=== PATIENT | female | born 1930 | race Caucasian/White ===

== ENCOUNTER 2016-10-18 07:41 | Emergency (ER) | payer MEDICARE ==
[~2016-10-18] VITALS: Ht 177.8 cm; Wt 80.0 kg
[~2016-10-18 07:41] MED LIST: ALPR-138 PO; AMLO5TAB96 PO; ASPI81 PO; COUM5TAB PO; LASI20TA PO; LEVO.075 PO; NORV2.5T11 PO; OMEP20CA5 PO; PARO10TA PO; PAXI20TA26 PO; PERC7.5T13 PO; PIRB14I INH; POTA0.15 PO; PROP20S PO; PROP80TA PO; WARF2.5 PO; ZITH500T PO
[2016-10-18 07:48] VITALS: BP 132/69; PULSE 66; RESP 16; TEMP 97.2; O2SAT 98
[2016-10-18] MEDS ORDERED: OXYMETAZOLINE HCL 0.05% 15 ML NASAL SPRAY NASAL ONE (08:00)
[2016-10-18 08:03] LABS: BASOPHIL % 0.4 % (0.0-2.0); EOSINOPHIL % 0.5 % (0.0-4.0); HEMATOCRIT 39.2 % (35.0-46.0); HEMO FLAGS DIFF FINAL; LYMPHOCYTE # 2.7 TH/MM3 (1.0-4.8); MEAN CORPUSCULAR HEMOGLOBIN 33.3 PG (27.0-34.0); MEAN CORPUSCULAR HGB CONC 33.7 % (32.0-36.0); MONO % 9.2 % (0.0-8.0); NEUT % 53.9 % (16.0-70.0); PLATELET COUNT 148 TH/MM3 (150-450); RED BLOOD COUNT 3.96 MIL/MM3 (4.00-5.30); RED CELL DISTRIBUTION WIDTH 13.5 % (11.6-17.2); WHITE BLOOD COUNT 7.5 TH/MM3 (4.0-11.0)
[2016-10-18 08:47] LABS: APTT (PATIENT) 32.2 SEC (24.3-30.1); INTERNATIONAL NORMALIZED RATIO 1.2 RATIO; PROTHROMBIN TIME - PATIENT 13.3 SEC (9.8-11.6)
--- NOTE | 2016-10-18 09:20 | PD ---
HPI Chief Complaint: Nosebleed Time Seen by Provider: 07:48 Travel History International Travel<30 days: No Contact w/Intl Traveler<30days: No Traveled to known affect area: No History of Present Illness HPI Patient is an 86-year-old female who comes in from the [facility] due to a nosebleed. Per EMS she had a nosebleed earlier in the night, but it was controlled with pressure at the [facility]. Started bleeding again this morning they were unable to control the bleeding so they sent her to the emergency department. She is on Xarelto. She has no complaints at this time. She denies any trauma to her nose. She is not having any palpitations or shortness of breath. She denies any chest pain. PFSH Past Medical History Arthritis: Yes Asthma: Yes Atrial Fibrillation: Yes Anxiety: Yes Heart Rhythm Problems: Yes Cancer: No Cardiac Catheterization: Yes Cardiovascular Problems: Yes (HEART BY-PASS; PACEMAKER) High Cholesterol: Yes Congestive Heart Failure: No Cerebrovascular Accident: Yes Coronary Artery Disease: Yes Diabetes: No Diminished Hearing: No GERD: Yes Glaucoma: No Hepatitis: No Hiatal Hernia: Yes Hypertension: Yes Musculoskeletal: Yes (SPINAL STENOSIS) Neurologic: Yes (TREMORS FOR APPROX 30 YEARS) Psychiatric: No Respiratory: No Immunizations Current: Yes Myocardial Infarction: No Thyroid Disease: Yes Tetanus Vaccination: Unknown ?: Not Menopausal: Yes Past Surgical History Abdominal Surgery: Yes Cardiac Surgery: Yes (PACEMAKER) Section: Yes Coronary Artery Bypass Graft: Yes (1994 BYPASS DOUBLE) Coronary Stent: Yes (2002) Eye Surgery: Yes (BILAT CATARACTS) Gynecologic Surgery: Yes (; HYSTERECTOMY) Hysterectomy: Yes Joint Replacement: Yes (R KNEE 2004) Pacemaker: Yes (05/24/2008) Tonsillectomy: Yes Other Surgery: Yes Social History Alcohol Use: No Tobacco Use: No Substance Use: No Allergies-Medications (Allergen,Severity, Reaction): Coded Allergies: Epinephrine (Verified Allergy, Severe, HEART RACES, 06/06/10) Sulfa (Verified Allergy, Severe, ANGIO EDEMA, 06/06/10) Monosodium Glutamate (Verified Allergy, Mild, INCREASE HEART RATE, ) Reported Meds & Prescriptions Reported Meds & Active Scripts Active Ceftin (Cefuroxime Axetil) 500 Mg Tab 500 Mg PO BID Xanax (Alprazolam) 0.25 Mg Tab 0.25 Mg PO Q8HR PRN Lortab (Hydrocodone-Acetaminophen) 10-325 Mg Tab 1 Tab PO Q6H PRN Reported Simvastatin 10 Mg Tab 10 Mg PO DAILY Xarelto (Rivaroxaban) 20 Mg Tab 20 Mg PO DAILY Ditropan (Oxybutynin Chloride) 5 Mg Tab 10 Mg PO HS Amlodipine (Amlodipine Besylate) 5 Mg Tab 5 Mg PO DAILY Atenolol 25 Mg Tab 12.5 Mg PO DAILY Omeprazole 40 Mg Cap 40 Mg PO DAILY Levothyroxine (Levothyroxine Sodium) 75 Mcg Tab 75 Mcg PO DAILY Risperdal (Risperidone) 1 Mg Tab 1 Mg PO DAILY Tylenol (Acetaminophen) 325 Mg Cap 650 Mg PO Q6H PRN Remeron (Mirtazapine) 15 Mg Tab 7.5 Mg PO HS Maxair (Pirbuterol) 25.6 Gm Aero 2 Puff INH Q4HPRN FOR ASTHMA SYMPTOMS Potassium Chloride 0.15% (Potassium Chloride in NaCl) 20 Meq/15 Ml Liqd 10 Meq PO BID Paxil (Paroxetine HCl) 10 Mg Tab 20 Mg PO DAILY Aspirin 81 Mg Tab 81 Mg PO DAILY Lasix (Furosemide) 20 Mg Tab 20 Mg PO DAILY Review of Systems General / Constitutional: No: Fever, Chills Eyes: No: Blurred Vision HENT: Positive: Nosebleed, No: Headaches Cardiovascular: No: Chest Pain or Discomfort, Palpitations Respiratory: No: Shortness of Breath Gastrointestinal: No: Nausea, Vomiting Skin: No Change in Pigmentation Neurologic: No: Weakness, Dizziness Physical Exam Narrative GENERAL: Awake and alert, in no acute distress. SKIN: Focused skin assessment warm/dry. HEAD: Atraumatic. Normocephalic. EYES: Pupils equal and round. No scleral icterus. ENT: Mucous membranes pink and moist. Active bleeding from the right Nare, no septal hematoma. NECK: Trachea midline. No JVD. CARDIOVASCULAR: Regular rate and rhythm. No murmur appreciated. RESPIRATORY: No accessory muscle use. Clear to auscultation. Breath sounds equal bilaterally. NEUROLOGICAL: Awake and alert. No obvious cranial nerve deficits. Motor grossly within normal limits. Normal speech. PSYCHIATRIC: Appropriate mood and affect; insight and judgment normal. Data Data Last Documented VS Vital Signs Date Time Temp Pulse Resp B/P Pulse Ox O2 Delivery O2 Flow Rate FiO2 10/18/16 10:33 75 16 128/75 99 10/18/16 07:48 97.2 Orders Complete Blood Count With Diff (10/18/16 07:48) Act Partial Throm Time (Ptt) (10/18/16 07:48) Prothrombin Time / Inr (Pt) (10/18/16 07:48) Oxymetazoline 0.05% [place] (Afrin 0.0 (10/18/16 08:00) Labs Laboratory Tests Test 10/18/16 07:50 White Blood Count 7.5 TH/MM3 Red Blood Count 3.96 MIL/MM3 Hemoglobin 13.2 GM/DL Hematocrit 39.2 % Mean Corpuscular Volume 99.0 FL Mean Corpuscular Hemoglobin 33.3 PG Mean Corpuscular Hemoglobin 33.7 % Concent Red Cell Distribution Width 13.5 % Platelet Count 148 TH/MM3 Mean Platelet Volume 8.3 FL Neutrophils (%) (Auto) 53.9 % Lymphocytes (%) (Auto) 36.0 % Monocytes (%) (Auto) 9.2 % Eosinophils (%) (Auto) 0.5 % Basophils (%) (Auto) 0.4 % Neutrophils # (Auto) 4.0 TH/MM3 Lymphocytes # (Auto) 2.7 TH/MM3 Monocytes # (Auto) 0.7 TH/MM3 Eosinophils # (Auto) 0.0 TH/MM3 Basophils # (Auto) 0.0 TH/MM3 CBC Comment DIFF FINAL Differential Comment Prothrombin Time 13.3 SEC Prothromb Time International 1.2 RATIO Ratio Activated Partial 32.2 SEC Thromboplast Time MDM Medical Decision Making Medical Screen Exam Complete: Yes Emergency Medical Condition: Yes Medical Record Reviewed: Yes Differential Diagnosis Nosebleed versus coagulopathy versus anemia Narrative Course Patient is an 86-year-old female comes in with a nosebleed. There is active bleeding from the right side of the nose. No evidence of septal hematoma. Labs sent to check hemoglobin show a hemoglobin of 13. PT and PTT are slightly elevated. Bleeding stopped with direct pressure and Afrin. Patient observed in the ED to ensure no further bleeding. Diagnosis Primary Impression: Nosebleed Patient Instructions: General Instructions, Nosebleed (ED) Additional Instructions: Avoid picking or blowing your nose. If your nose bleeds again, apply direct pressure. Follow up with your doctor and ENT. Return to the ED as needed for any worsening symptoms. Disposition: 03 DISCHARGE TO SNF Condition: Stable Annalisa Matthews MD October 18, 2016 09:20
[2016-10-18 10:33] VITALS: BP 128/75
[2016-10-18] MEDS ORDERED: FURO1TAB60 PO (18:47)
[2016-10-18] MEDS ORDERED: OXYB5TAB10 PO (18:47)
[2016-10-18] MEDS ORDERED: POTA-163 PO (18:47)
[2016-10-18] MEDS ORDERED: LEVA500T PO (18:47)
[2016-10-18] MEDS ORDERED: SIMV10TA PO (18:47)
[2016-10-18] MEDS ORDERED: RISP1 PO (18:47)
[2016-10-18] MEDS ORDERED: ACET1CAP18 PO (18:47)
[2016-10-18] MEDS ORDERED: ATEN25TA PO (18:47)
[2016-10-18] MEDS ORDERED: LORA-392 PO (18:47)
[2016-10-18] MEDS ORDERED: AMLO5TAB2 PO (18:47)
[2016-10-18] MEDS ORDERED: HYDR-3535 PO (18:47)
[2016-10-18] MEDS ORDERED: OMEP40CA2 PO (18:47)
[2016-10-18] MEDS ORDERED: XARE20TA PO (18:47)
[2016-10-18] MEDS ORDERED: LEVO75TA3 PO (18:47)
[2016-10-18] MEDS ORDERED: REME15TA PO (18:47)
== END 2016-10-18 13:18 ==
LOC: NEPC 07:41
DX: R04.0 Epistaxis (principal); I48.91 Unspecified atrial fibrillation; Z95.0 Presence of cardiac pacemaker; I25.10 Atherosclerotic heart disease of native coronary artery without angina pectoris; I10 Essential (primary) hypertension
CPT/HCPCS: 85025; 85610; 85730; 99283

== ENCOUNTER 2016-10-18 17:34 | Observation (INO) | payer MEDICARE ==
[~2016-10-18] VITALS: Ht 177.8 cm; Wt 80.0 kg
[2016-10-18 17:48] VITALS: BP 130/64; PULSE 62; RESP 16; TEMP 98; O2SAT 95
[2016-10-18] MEDS ORDERED: POTA-163 PO (18:47)
[2016-10-18] MEDS ORDERED: LEVA500T PO (18:47)
[2016-10-18] MEDS ORDERED: LEVO75TA3 PO (18:47)
[2016-10-18] MEDS ORDERED: HYDR-3535 PO (18:47)
[2016-10-18] MEDS ORDERED: ATEN25TA PO (18:47)
[2016-10-18] MEDS ORDERED: FURO1TAB60 PO (18:47)
[2016-10-18] MEDS ORDERED: RISP1 PO (18:47)
[2016-10-18] MEDS ORDERED: ACET1CAP18 PO (18:47)
[2016-10-18] MEDS ORDERED: OMEP40CA2 PO (18:47)
[2016-10-18] MEDS ORDERED: REME15TA PO (18:47)
[2016-10-18] MEDS ORDERED: SIMV10TA PO (18:47)
[2016-10-18] MEDS ORDERED: LORA-392 PO (18:47)
[2016-10-18] MEDS ORDERED: AMLO5TAB2 PO (18:47)
[2016-10-18] MEDS ORDERED: OXYB5TAB10 PO (18:47)
[2016-10-18] MEDS ORDERED: XARE20TA PO (18:47)
[2016-10-18 19:05] VITALS: BP 132/74; PULSE 77; RESP 18; TEMP 97.4; O2SAT 98
--- NOTE | 2016-10-18 19:34 | PD ---
HPI Chief Complaint: Nosebleed Time Seen by Provider: 17:58 Travel History International Travel<30 days: No Contact w/Intl Traveler<30days: No Traveled to known affect area: No History of Present Illness HPI Patient is an 86-year-old female with history of dementia who comes in for the second time due to nosebleed. She was here earlier this morning with a nosebleed which stopped after direct pressure. However she continues to pick at her nose and then the bleeding starts again. Per residential, she has stopped her Xarelto. They sent her back because they believe her nose needs to be cauterized. She has no complaints at this time. There is minimal bleeding currently. PFSH Past Medical History Arthritis: Yes Asthma: Yes Atrial Fibrillation: Yes Anxiety: Yes Heart Rhythm Problems: Yes Cancer: No Cardiac Catheterization: Yes Cardiovascular Problems: Yes (HEART BY-PASS; PACEMAKER) High Cholesterol: Yes Congestive Heart Failure: No Cerebrovascular Accident: Yes Coronary Artery Disease: Yes Diabetes: No Diminished Hearing: No GERD: Yes Glaucoma: No Hepatitis: No Hiatal Hernia: Yes Hypertension: Yes Musculoskeletal: Yes (SPINAL STENOSIS) Neurologic: Yes (TREMORS FOR APPROX 30 YEARS) Psychiatric: No Respiratory: No Immunizations Current: Yes Myocardial Infarction: No Thyroid Disease: Yes ?: Not Menopausal: Yes Past Surgical History Abdominal Surgery: Yes Cardiac Surgery: Yes (PACEMAKER) Section: Yes Coronary Artery Bypass Graft: Yes (1994 BYPASS ) Coronary Stent: Yes (2002) Eye Surgery: Yes (BILAT CATARACTS) Gynecologic Surgery: Yes (; HYSTERECTOMY) Hysterectomy: Yes Joint Replacement: Yes (R KNEE 2004) Pacemaker: Yes (05/24/2008) Tonsillectomy: Yes Other Surgery: Yes Social History Alcohol Use: No Tobacco Use: No Substance Use: No Allergies-Medications (Allergen,Severity, Reaction): Coded Allergies: Epinephrine (Verified Allergy, Severe, HEART RACES, 06/06/10) Sulfa (Verified Allergy, Severe, ANGIO EDEMA, 06/06/10) Monosodium Glutamate (Verified Allergy, Mild, INCREASE HEART RATE, ) Reported Meds & Prescriptions Reported Meds & Active Scripts Active Reported Simvastatin 10 Mg Tab 10 Mg PO DAILY Xarelto (Rivaroxaban) 20 Mg Tab 20 Mg PO DAILY Ditropan (Oxybutynin Chloride) 5 Mg Tab 10 Mg PO HS Amlodipine (Amlodipine Besylate) 5 Mg Tab 5 Mg PO DAILY Atenolol 25 Mg Tab 12.5 Mg PO DAILY Omeprazole 40 Mg Cap 40 Mg PO DAILY Levothyroxine (Levothyroxine Sodium) 75 Mcg Tab 75 Mcg PO DAILY Risperdal (Risperidone) 1 Mg Tab 1 Mg PO DAILY Tylenol (Acetaminophen) 325 Mg Cap 650 Mg PO Q6H PRN Remeron (Mirtazapine) 15 Mg Tab 7.5 Mg PO HS Maxair (Pirbuterol) 25.6 Gm Aero 2 Puff INH Q4HPRN FOR ASTHMA SYMPTOMS Potassium Chloride 0.15% (Potassium Chloride in NaCl) 20 Meq/15 Ml Liqd 10 Meq PO BID Paxil (Paroxetine HCl) 10 Mg Tab 20 Mg PO DAILY Aspirin 81 Mg Tab 81 Mg PO DAILY Lasix (Furosemide) 20 Mg Tab 20 Mg PO DAILY Review of Systems ROS Limitations: Other: (dementia ) Physical Exam Narrative GENERAL: Awake and alert, in no acute distress. SKIN: Focused skin assessment warm/dry. HEAD: Atraumatic. Normocephalic. EYES: Pupils equal and round. No scleral icterus. ENT: Mild Bleeding from right side of the nose. Mucous membranes pink and moist. NECK: Trachea midline. No JVD. CARDIOVASCULAR: Regular rate and rhythm. No murmur appreciated. RESPIRATORY: No accessory muscle use. Clear to auscultation. Breath sounds equal bilaterally. NEUROLOGICAL: Awake and alert. No obvious cranial nerve deficits. Motor grossly within normal limits. Normal speech. Data Data Last Documented VS Vital Signs Date Time Temp Pulse Resp B/P Pulse Ox O2 Delivery O2 Flow Rate FiO2 10/18/16 19:05 97.4 77 18 132/74 98 Orders Admit Order (Ed Use Only) (10/18/16 ) [facility] Medical Decision Making Medical Screen Exam Complete: Yes Emergency Medical Condition: Yes Medical Record Reviewed: Yes Differential Diagnosis Nosebleed vs coagulopathy vs anemia Narrative Course Patient is an 86-year-old female who comes in due to a nosebleed. This is her second visit today for the same thing. She is demented and continues to pick at her nose. Her Laron of ENT who suggests direct pressure over 24 hours with her strain of her hands. Packing placed, patient placed in wrist restraints. Will be placed in observation. Labs are not repeated as they were completely normal this morning. There is some minimal bleeding at this time. Diagnosis Primary Impression: Nosebleed Admitting Information Admitting Physician Requests: Observation Scripts Cefuroxime (Ceftin)500 Mg [id number] Mg PO BID #12 TAB Ref 0 Prov:Joshua Han MD 10/20/16 Alprazolam (Xanax)0.25 Mg Tab0.25 Mg PO Q8HR PRN (ANXIETY) #20 TAB Prov:Joshua Han MD 10/20/16 Hydrocodone-Acetaminophen (Lortab)10-325 Mg Tab1 Tab PO Q6H PRN (PAIN) #15 TAB Ref 0 Prov:Joshua Han MD 10/20/16 Condition: Stable Annalisa Matthews MD October 18, 2016 19:34
[2016-10-18] MEDS ORDERED: ALPRAZolam 0.25 MG TAB PO PRN (20:45)
[2016-10-18] MEDS: OXYBUTYNIN CHLORIDE 5 MG TAB PO SCH (21:00)
[2016-10-18] MEDS ORDERED: PILL SPLITTER OTHER PRN (21:30)
[2016-10-18 21:46] VITALS: BP 161/99; PULSE 69; RESP 18; O2SAT 97
[2016-10-18] MEDS: MIRTAZAPINE 15 MG TAB PO SCH (22:00)
[2016-10-18] MEDS: ACETAMINOPHEN/HYDROcodone 325 MG/10 MG TAB PO PRN (22:38)
[2016-10-18 22:43] VITALS: BP 159/72; PULSE 76; RESP 22; TEMP 98; O2SAT 96
[2016-10-19 04:00] VITALS: BP 162/75; PULSE 70; RESP 20; TEMP 97.8; O2SAT 100
[2016-10-19] MEDS: LEVOTHYROXINE SODIUM 75 MCG TAB PO SCH (05:44)
[2016-10-19] MEDS: ACETAMINOPHEN/HYDROcodone 325 MG/10 MG TAB PO PRN (05:44)
[2016-10-19 06:26] LABS: HEMATOCRIT 38.4 % (35.0-46.0); MEAN CELL VOLUME 98.8 FL (80.0-100.0); MEAN CORPUSCULAR HEMOGLOBIN 33.4 PG (27.0-34.0); MEAN CORPUSCULAR HGB CONC 33.7 % (32.0-36.0); PLATELET COUNT 142 TH/MM3 (150-450); RED BLOOD COUNT 3.88 MIL/MM3 (4.00-5.30); RED CELL DISTRIBUTION WIDTH 13.5 % (11.6-17.2); REVIEW FLAG FINAL
[2016-10-19 08:36] VITALS: BP 137/65; PULSE 70; RESP 23; TEMP 97.4; O2SAT 98
[2016-10-19] MEDS: POTASSIUM CHLORIDE 20 MEQ PWD PACKET PO SCH (09:00)
[2016-10-19] MEDS: ATENOLOL 25 MG TAB PO SCH (09:50)
[2016-10-19] MEDS: LEVOFLOXACIN 500 MG TAB PO SCH (09:50)
[2016-10-19] MEDS: risperiDONE 1 MG TAB PO SCH (09:50)
[2016-10-19] MEDS: PRAVASTATIN SOD 20 MG TAB PO SCH (09:51)
[2016-10-19] MEDS: amLODIPine BESYLATE 5 MG TAB PO SCH (09:51)
[2016-10-19] MEDS: FUROSEMIDE 20 MG TAB PO SCH (09:51)
[2016-10-19] MEDS: PARoxetine HCL 20 MG TAB PO SCH (09:51)
[2016-10-19] MEDS: PANTOPRAZOLE SOD 40 MG DELAYED RELEASE TAB PO SCH (09:51)
[2016-10-19 11:53] VITALS: BP 159/61; PULSE 72; RESP 17; TEMP 97.4; O2SAT 97
--- NOTE | 2016-10-19 11:56 | MH ---
cc: ALEJANDROBHARAT DATE OF ADMISSION: 10/18/2016 DATE OF : 1930 REASON FOR ADMISSION Nosebleed x 2. HISTORY OF PRESENT ILLNESS This is a 86-year-old white female who currently is in a intermediate setting. She has endstage dementia and is pretty much unaware of situation, time, questionable person and place. The patient came into [facility] for the first time on 10/18 for a nosebleed. Direct pressure was applied and the nose quit bleeding and she was sent back out. According to the staff that works with her she continues to pick her nose and the bleeding started again. She at some point has been on Xarelto but it is unknown when the Xarelto was stopped. Currently the nose is packed with pressure. The patient is currently being reevaluated for any further complications due to her nosebleeds. The patient has no chest pain, no shortness of breath, no nausea, no vomiting, no headache. She is talkative, alert, but questionable orientation due to her severe dementia. PAST MEDICAL HISTORY According to the record includes: 1. Arthritis. 2. Asthma. 3. History of atrial fibrillation. 4. Cardiovascular disease. 5. Coronary artery disease. 6. Hyperlipidemia. 7. CVA. 8. Dementia. 9. GERD. 10. Hiatal hernia. 11. Spinal stenosis. 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 13. Thyroid disease. PAST SURGICAL HISTORY 1. Pacemaker. 2. Bypass surgery. 3. Coronary stents. 4. Bilateral cataracts. 5. section. 6. Hysterectomy. 7. Right knee surgery. ALLERGIES EPINEPHRINE, MONOSODIUM GLUCONATE, SULFA. MEDICATION Reported: 1. Simvastatin. 2. Ativan. 3. Xarelto which according to the intermediate staff has been held. 4. Ditropan. 5. Amlodipine. 6. Lortab. 7. Atenolol. 8. Omeprazole. 9. Thyroxine. 10.Respirdal. 11.potassium. 12.Lasix. 13.Tylenol. 14.Levequin. 15.Remeron. 16.Synthroid. 17.Xanax. 18.Maxair. 19.Percocet for pain. 20.Potassium. 21.Inderal. 22.Paxil. 23.Aspirin. 24.Coumadin. 25.Norvasc. 26.Zithromax. 27.Prilosec. REVIEW OF SYSTEMS Unable to obtain secondary to the patient's altered mental status. SOCIAL HISTORY To my knowledge and according to the record there is no use of alcohol, tobacco or illicit drugs. The patient does state that she is retired [employer] and that she has been for many years from her . She does state she has a son but she and he do not see each other. Questionable information again secondary to her dementia. PHYSICAL EXAMINATION VITAL SIGNS: Temperature 97.4, pulse 70, respirations 20-23. Blood pressure 137/65, 02 sat 98 on room air. Highest blood pressure noted is 162/75. GENERAL: A thin white female who looks to be her stated age, talkative, but with altered mental status, mild anxiety noted. HEENT: Atraumatic, normocephalic. Neck is supple. Mucous membranes are pink and moist. Tongue is dry with some probable old blood, possibly from her previous nosebleed. CARDIOVASCULAR: S1, S2, possible soft murmur. Her heart sounds are distant due to her lung sounds. She has no edema. Her pulses are intact. PULMONARY: Lungs are essentially clear anterior and posterior with no wheezes, rales or rhonchi. ABDOMEN: Soft, nontender, nondistended with active bowel sounds. MUSCULOSKELETAL: She moves all of her extremities with purpose. She does have an old fracture left ankle, left foot area. NEUROLOGIC: She is disoriented to time, situation, probable person and place and her short term memory. PSYCHIATRIC: Mood and affect is talkative with some mild anxiety. DIAGNOSTIC DATA WBC count 9, RBC 3.88, hemoglobin 13, hematocrit 38.4, platelet count 142. Monocyte auto count 9.2. PT/INR is 1.2. IMAGING STUDIES None for now. ASSESSMENT AND PLAN 1. Epistaxis x 2. 2. Thrombocytopenia, mild. 3. History of coronary artery disease. 4. History of cardiovascular disease. 5. Dementia. 6. GERD. 7. History of atrial fibrillation. 8. Possible UTI. Our plan is to initially admit for observation. The patient's medications have been reconciled. ENT has been consulted for their expert opinion. The patient still has packing with pressure in her nose. Evaluation will need to be done for any further cauterization to control epistaxis. The patient may need to continue soft wrist restraints if she continues to pick at her nose and cause it to bleed. The patient is currently on Levaquin for a possible UTI, we will reevaluate with another UA and culture and sensitivity if warranted. To my knowledge the patient is full code, full aggressive care and we will follow her needs. Dictated by: ALIRIO Kovacs Bharat Han MD JP/ANGELA /9:48 AM /11:52 AM pt seen and examined as above by katie walden labs and meds reviewed previous notes reviewed renetta and explained to pt plan of care renetta jackson rn on floor see orders MTDD
[2016-10-19 15:27] LABS: BACTERIA, URINE MOD /hpf; BLOOD, URINE NEG (NEG); GLUCOSE,URINE NEG (NEG); KETONE, URINE NEG (NEG); NITRITE,URINE NEG (NEG); PH, URINE 7.5 (5.0-8.5); URINE COLOR YELLOW (YELLW/STRAW)
[2016-10-19 15:29] LABS: COMMENT (UR) CATH-CULTURE IND; CULTURE IF INDICATED CATH CULTURE IND
[2016-10-19 15:43] VITALS: BP 127/58; PULSE 78; RESP 20; TEMP 97.7; O2SAT 97
[2016-10-19 19:25] VITALS: BP 98/54; PULSE 61; RESP 18; TEMP 98.8; O2SAT 97
[2016-10-19] MEDS: MIRTAZAPINE 15 MG TAB PO SCH (21:10)
[2016-10-19] MEDS: OXYBUTYNIN CHLORIDE 5 MG TAB PO SCH (21:11)
[2016-10-19 23:05] VITALS: BP 114/60; PULSE 69; RESP 18; TEMP 97.6; O2SAT 95
[2016-10-20 04:29] VITALS: BP 140/69; PULSE 73; RESP 18; TEMP 97.6; O2SAT 96
[2016-10-20] MEDS: ACETAMINOPHEN/HYDROcodone 325 MG/10 MG TAB PO PRN (05:04)
[2016-10-20] MEDS: LEVOTHYROXINE SODIUM 75 MCG TAB PO SCH (05:04)
--- NOTE | 2016-10-20 07:54 | HHI.PR ---
Subjective Remarks Sitting on side of bed Awake Pleasant confusion No further nosebleeds (Fany Koch) Objective Objective Results - Vital Signs Date Time Temp Pulse Resp B/P Pulse Ox O2 Delivery O2 Flow Rate FiO2 10/20/16 05:49 16 10/20/16 04:29 97.6 73 18 140/69 96 10/19/16 23:05 97.6 69 18 114/60 95 10/19/16 19:25 98.8 61 18 98/54 97 10/19/16 15:43 97.7 78 20 127/58 97 10/19/16 11:53 97.4 72 17 159/61 97 10/19/16 08:36 97.4 70 23 137/65 98 I/O 10/19/16 10/19/16 10/19/16 10/20/16 10/20/16 10/20/16 07:00 15:00 23:00 07:00 15:00 23:00 Intake Total 250 ml Balance 250 ml Intake Oral 250 ml (Fany Koch) Result Diagram: 10/19/16 0427 ROS General: Other (10 point ROS done positives noted otherwise systems negative no further nosebleeds noted) HEENT: Other (staxis controlled) Neuro/MS: Confusion (dementia) (Fany Koch) Physical Exam Physical Exam PHYSICAL EXAMINATION GENERAL: This is a well-developed, elderly female who appears to be in no acute distress. She is awake, conversational. HEAD: Normocephalic without any lesion or mass noted. Facial features appear symmetric. Nasal packing out of nose no further epistaxis noted OROPHARYNGEAL: Oropharynx without erythema or edema. NECK: Supple. Trachea midline without deviation. CARDIAC: Regular rhythm, regular rate, S1 and S2 are heard. LUNGS: Clear to auscultation bilaterally ABDOMEN: Soft, nontender, no organomegaly or masses. I'll sounds present EXTREMITIES: no edema. Pulses intact NEUROLOGICAL: Patient mood and affect with some mild anxiety which appears to be chronic SKIN:Warm and moist Objective Remarks Please don't send me back (Fany Koch) A/P Assessment and Plan 1. Epistaxis x 2. 2. Thrombocytopenia, mild. 3. History of coronary artery disease. 4. History of cardiovascular disease. 5. Dementia. 6. GERD. 7. History of atrial fibrillation. 8. Possible UTI. Epistaxis is under control, nasal packing is out of right nare. ENT consult pending Dementia controlled medical management, uses anxiety meds when necessary GERD controlled medical management UTI with culture pending, UA checked on admission, positive Patient maintained on by mouth Levaquin Discharge planning with case management initiated on admission for needs when stable Patient should be able to discharge today back to her facility. Discussed with nurse Daria with Dr. Han, seen on his behalf (Fany Koch) Assessment and Plan Agency and examined as above Patient has no more bleeding since yesterday morning. Her packing is out since yesterday morning No complaint No issues as per RN. This director case management about DC planning Plan to discharge back to her facility to be followed by primary care doctor. Note made on 3 tolerate to follow culture of urine. Discussed with ALIRIO about plan of care and above note (Joshua Han MD) Fany Koch October 20, 2016 07:54 Joshua Han MD October 20, 2016 09:08
[2016-10-20 08:14] VITALS: BP 120/67; PULSE 65; RESP 19; TEMP 97.7; O2SAT 96
[2016-10-20] MEDS: ATENOLOL 25 MG TAB PO SCH (08:35)
[2016-10-20] MEDS: LEVOFLOXACIN 500 MG TAB PO SCH (08:35)
[2016-10-20] MEDS: PRAVASTATIN SOD 20 MG TAB PO SCH (08:35)
[2016-10-20] MEDS: PANTOPRAZOLE SOD 40 MG DELAYED RELEASE TAB PO SCH (08:35)
[2016-10-20] MEDS: risperiDONE 1 MG TAB PO SCH (08:35)
[2016-10-20] MEDS: PARoxetine HCL 20 MG TAB PO SCH (08:35)
[2016-10-20] MEDS: amLODIPine BESYLATE 5 MG TAB PO SCH (08:35)
[2016-10-20] MEDS: FUROSEMIDE 20 MG TAB PO SCH (08:35)
[2016-10-20] MEDS: POTASSIUM CHLORIDE 20 MEQ PWD PACKET PO SCH (08:36)
--- NOTE | 2016-10-20 08:52 | MB ---
cc: SABAS CHOWDHURY MD DATE OF CONSULTATION October 19, 2016 REASON FOR ADMISSION Epistaxis. HISTORY OF PRESENT ILLNESS This is an 86-year-old female with end-stage dementia who has had several nosebleeds over the weekend. These nosebleeds were able to be stopped in the emergency room with direct pressure. She was sent back to her long term. However, she would continue to pick at her nose and there was a rebleed again and was sent back to the emergency room. She was admitted for observation for this with a nasal packing placed. At bedside currently she has no nasal packing in and is not bleeding. She does respond to me appropriately and tells me that she has had multiple nosebleeds and that she has not bled since she got here late last night, which according to the nurse at bedside, is accurate. PAST MEDICAL HISTORY Significant for - 1. Arthritis. 2. Asthma. 3. A-fib. 4. Cardiovascular disease. 5. Coronary artery disease. 6. Hyperlipidemia. 7. CVA. 8. Severe dementia. PAST SURGICAL HISTORY Significant for - 1. Bypass. 2. Coronary stents. 3. Cataracts. 4. C-sections. 5. Hysterectomy. 6. Knee surgery. 7. Pacemaker placement. ALLERGIES EPINEPHRINE. SULFA. MEDICATIONS Multiple medications that she is on currently. Please see the MAR. Of note for ENT, she is on Xarelto but that is currently being held. PHYSICAL EXAMINATION GENERAL: The patient is only alert and she does seem to be oriented to her current surroundings and situation but she is unsure how long she has been in the hospital. HEENT EXAM: Her nasal endoscopy at bedside shows no lesions in the nasal cavity. There is no obvious sites of bleeding that could be cauterized. Specifically, on the left where the bleeding has mostly been according to the nursing staff, there has been no bleeding from last 10 hours. There is no lesions or any areas that are amendable to cauterization. On the right she has no lesions or areas of concern or dryness. The remainder of her HEENT exam is within normal limits. HEART EXAM: Regular rate and rhythm. LUNGS: Clear to auscultation. ASSESSMENT AND PLAN Patient with mild epistaxis. Would recommend there is no area that is amenable to cauterization at this time. Would recommend nasal moisturization with Vaseline along the nares as well as nasal saline several times a day to keep the nasal passages moist. Otherwise, follow up as needed. Thank you. Sabas Chowdhury AT/MILANA /8:03 AM /8:41 AM TOMER
[2016-10-20] MEDS ORDERED: HYDR-3535 PO (09:17)
[2016-10-20] MEDS ORDERED: ALPR.25 PO (09:17)
[2016-10-20] MEDS ORDERED: CEFT500T3 PO (09:17)
--- NOTE | 2016-10-20 09:20 | HHI.DS ---
Discharge Summary Admission Date October 18, 2016 at 19:35 Admitting Diagnosis Nosebleed (1) Nosebleed Diagnosis: Principal Brief History Patient came to the ER because of nosebleed. Patient was treated and sent back to the facility. But nosebleed continues so she was brought back. And she was admitted. Rhino Rocket was put in. Patient was monitored. Rhino Rocket fell off. And patient was monitored off of Rhino Rocket. There is no bleeding since yesterday morning. As patient is overall stable and good condition plan to discharge her back to the facility. For further details please see chart. CBC/BMP: 10/19/16 0427 Significant Findings Laboratory Tests Test 10/19/16 10/19/16 04:27 14:00 Red Blood Count 3.88 MIL/MM3 (4.00-5.30) Platelet Count 142 TH/MM3 (150-450) Urine Turbidity HAZY (CLEAR) Urine Leukocyte Esterase LARGE (NEG) Urine WBC 19 /hpf (0-5) Urine Bacteria MOD /hpf (NONE) Pt Condition on Discharge: Good Discharge Disposition: Discharge to SNF Discharge Instructions DIET: Follow Instructions for: Heart Healthy Diet Activities you can perform: Weight Bearing as Joey Follow up Referrals: PCP Follow-up - 2-3 Days New Medications: Cefuroxime (Ceftin) 500 Mg Tab 500 MG PO BID Infection #12 Ref 0 TAB Alprazolam (Xanax) 0.25 Mg Tab 0.25 MG PO Q8HR PRN ANXIETY #20 TAB Continued Medications: Acetaminophen (Tylenol) 325 Mg Cap 650 MG PO Q6H PRN PAIN SCALE 1 TO 4 Ref 0 CAP Amlodipine (Amlodipine) 5 Mg Tab 5 MG PO DAILY Blood Pressure Management #30 Ref 0 TAB Aspirin (Aspirin) 81 Mg Tab 81 MG PO DAILY Atenolol (Atenolol) 25 Mg Tab 12.5 MG PO DAILY Blood Pressure Management #30 Ref 0 TAB Furosemide (Lasix) 20 Mg Tab 20 MG PO DAILY Hydrocodone-Acetaminophen (Lortab) 10-325 Mg Tab 1 TAB PO Q6H PRN PAIN #15 Ref 0 TAB (This prescription has been renewed) Levothyroxine (Levothyroxine) 75 Mcg Tab 75 MCG PO DAILY Thyroid #30 Ref 0 TAB Mirtazapine (Remeron) 15 Mg Tab 7.5 MG PO HS Depression Control #15 Ref 0 TAB Omeprazole (Omeprazole) 40 Mg Cap 40 MG PO DAILY #30 Ref 0 CAP Oxybutynin (Ditropan) 5 Mg Tab 10 MG PO HS Urinary Symptom Managemen #60 Ref 0 TAB Paroxetine Hcl (Paxil) 10 Mg Tab 20 MG PO DAILY Pirbuterol (Maxair) 25.6 Gm Aero 2 PUFF INH Q4HPRN FOR ASTHMA SYMPTOMS Potassium Chloride in NaCl (Potassium Chloride 0.15%) 20 Meq/15 Ml Liqd 10 MEQ PO BID Risperidone (Risperdal) 1 Mg Tab 1 MG PO DAILY #30 Ref 0 TAB Rivaroxaban (Xarelto) 20 Mg Tab 20 MG PO DAILY Blood Clot Prevention Ref 0 TAB Simvastatin (Simvastatin) 10 Mg Tab 10 MG PO DAILY Cholesterol Management #30 Ref 0 TAB Discontinued Medications: Alprazolam (Xanax) 0.25 Mg Tab 0.25 MG PO QIDPRN For Anxiety Amlodipine Besylate (Norvasc) 5 Mg Tab 7.5 MG PO DAILY Azithromycin (Zithromax) 500 Mg Tab 500 MG PO DAILY Furosemide (Lasix) 40 Mg Tab 40 MG PO DAILY #30 Ref 0 TAB Levofloxacin (Levaquin) 500 Mg Tab 500 MG PO DAILY Infection Ref 0 TAB Levothyroxine Sodium (Synthroid) 75 Mcg Tab 75 MCG PO DAILY Lorazepam (Ativan) 0.5 Mg Tab 0.5 MG PO Q12HR PRN ANXIETY AND/OR AGITATION Ref 0 TAB Omeprazole 20 mg (Prilosec 20 mg) 20 Mg Capcr 20 MG PO DAILY Oxycodone-Acetaminophen 7.5-325 mg (Percocet 7.5-325 mg) 1 Tab 1 TAB PO Q6HPRN FOR PAIN Potassium Chloride ER (Potassium Chloride ER) 20 Meq Tab 20 MEQ PO DAILY Electrolyte Replacement #30 Ref 0 TAB Propranolol Hcl (Inderal) 80 Mg Tab 80 MG PO DAILY Warfarin Sodium (Coumadin 5 mg) 5 Mg Tab 5 MG PO DAILY HOLD UNTIL INR RESULTS ON WEDNESDAY-REFER TO FOR DOSAGE Joshua Han MD October 20, 2016 09:19
== END 2016-10-20 11:04 ==
LOC: NEPC 17:34 → NEDA 19:35 → NEPGCP 22:13
PROVIDERS: ADMIT Specialist; ATTEND Specialist
DX: R04.0 Epistaxis (principal); F03.90 Unspecified dementia, unspecified severity, without behavioral disturbance, psychotic disturbance, mood disturbance, and anxiety; J45.909 Unspecified asthma, uncomplicated; I48.91 Unspecified atrial fibrillation; F41.9 Anxiety disorder, unspecified; E78.00 Pure hypercholesterolemia, unspecified; I25.10 Atherosclerotic heart disease of native coronary artery without angina pectoris; E78.5 Hyperlipidemia, unspecified; K21.9 Gastro-esophageal reflux disease without esophagitis; D69.6 Thrombocytopenia, unspecified; Z95.5 Presence of coronary angioplasty implant and graft; Z79.01 Long term (current) use of anticoagulants; Z79.82 Long term (current) use of aspirin; Z88.8 Allergy status to other drugs, medicaments and biological substances; Z88.2 Allergy status to sulfonamides; Z96.651 Presence of right artificial knee joint; Z95.0 Presence of cardiac pacemaker; Z95.1 Presence of aortocoronary bypass graft; Z86.73 Personal history of transient ischemic attack (TIA), and cerebral infarction without residual deficits; I10 Essential (primary) hypertension
CPT/HCPCS: 30901; 81001; 85027; 87077; 87086; 87186; 99284; G0378; 85025; 85610; 85730; 99283

== ENCOUNTER 2016-12-14 22:18 | Inpatient (IN) | payer MEDICARE ==
[~2016-12-14] VITALS: Ht 160 cm; Wt 66.5 kg
[2016-12-14 22:00] VITALS: O2SAT 94
[~2016-12-14 22:18] MED LIST changes: +ACET1CAP18 PO; -ALPR-138 PO; +ALPR.25 PO; +AMLO5TAB2 PO; -AMLO5TAB96 PO; +ATEN25TA PO; +CEFT500T3 PO; -COUM5TAB PO; +HYDR-3535 PO; -LEVO.075 PO; +LEVO75TA3 PO; -OMEP20CA5 PO; +OMEP40CA2 PO; +OXYB5TAB10 PO; -PERC7.5T13 PO; -PROP80TA PO; +REME15TA PO; +RISP1 PO; +SIMV10TA PO; +XARE20TA PO; -ZITH500T PO
[2016-12-14 22:21] VITALS: BP 123/57; PULSE 80; RESP 22; O2SAT 89
[2016-12-14] MEDS ORDERED: FENT12DI T-DERMAL (22:34)
[2016-12-14] MEDS ORDERED: FURO40TA PO (22:34)
[2016-12-14] MEDS ORDERED: PARO20TA2 PO (22:34)
[2016-12-14] MEDS ORDERED: POTA10CA PO (22:34)
[2016-12-14] MEDS ORDERED: CIPR500T2 PO (22:34)
[2016-12-14] MEDS ORDERED: ACET650S (22:34)
[2016-12-14 22:35] VITALS: O2SAT 94
[2016-12-14 22:45] VITALS: O2SAT 94
--- NOTE | 2016-12-14 22:48 | PD ---
HPI Chief Complaint: Respiratory Distress Time Seen by Provider: 22:28 Travel History International Travel<30 days: No Contact w/Intl Traveler<30days: No Traveled to known affect area: No History of Present Illness HPI The patient is an 86 year old female who presents to the [facility] emergency department with a history of being brought in from a local group home with diminished O2 saturations in the 70s to 80s with dusky coloration, glucose patient around her lips noted prior to arrival. The patient was found on the floor according to the nurse that took report from the group home. The patient's recent history is significant for having decreased level of consciousness and being diagnosed with a urinary tract infection in the last 24 hours and started on ciprofloxacin. The patient was also noted to have an elevated BNP and had her Lasix increased today. The patient's past medical history is significant for dementia, congestive heart failure, history of pacemaker placement. The patient on arrival response to painful stimulation, otherwise she is not providing any history. She is moving all extremities equally. The patient arrives on CPAP with an O2 saturation of 88-90%. [facility] Past Medical History Narrative Medical The patient's past medical history is significant for congestive heart failure, hypertension, coronary artery disease, hyperlipidemia, diabetes mellitus, dementia, atrial fibrillation chronically anticoagulated on Xarelto. The patient has a prior history of cerebrovascular accident, arthritis, asthma, spinal stenosis, tremor, hypothyroid disorder and hiatal hernia Hx Anticoagulant Therapy: Yes (XARELTO ) Arthritis: Yes Asthma: Yes Atrial Fibrillation: Yes Anxiety: Yes Heart Rhythm Problems: Yes Cancer: No Cardiac Catheterization: Yes Cardiovascular Problems: Yes (HEART BY-PASS; PACEMAKER) High Cholesterol: Yes Congestive Heart Failure: No Cerebrovascular Accident: Yes Coronary Artery Disease: Yes Diabetes: No Diminished Hearing: No GERD: Yes Glaucoma: No Hepatitis: No Hiatal Hernia: Yes Heparin Induced Thrombocytopen: No Hypertension: Yes Medical other: Yes (FREQUENT UTI; GERD) Musculoskeletal: Yes (SPINAL STENOSIS) Neurologic: Yes (TREMORS FOR APPROX 30 YEARS) Psychiatric: No Respiratory: No Immunizations Current: Yes Myocardial Infarction: No Thyroid Disease: Yes Menopausal: Yes Past Surgical History Narrative Surgical The patient's past surgical history is significant for a pacemaker placement, coronary artery bypass grafting, history of coronary artery stenting, bilateral cataract surgery, , hysterectomy, right knee surgery. Abdominal Surgery: Yes Cardiac Surgery: Yes (PACEMAKER) Section: Yes Coronary Artery Bypass Graft: Yes (1994 BYPASS DOUBLE) Coronary Stent: Yes (2002) Eye Surgery: Yes (BILAT CATARACTS) Gynecologic Surgery: Yes (; HYSTERECTOMY) Hysterectomy: Yes Joint Replacement: Yes (R KNEE 2004) Pacemaker: Yes (05/24/2008) Tonsillectomy: Yes Other Surgery: Yes Social History Alcohol Use: No Tobacco Use: No Substance Use: No Allergies-Medications (Allergen,Severity, Reaction): Coded Allergies: Epinephrine (Verified Allergy, Severe, HEART RACES, 12/14/16) Sulfa (Verified Allergy, Severe, ANGIO EDEMA, 12/14/16) Monosodium Glutamate (Verified Allergy, Mild, INCREASE HEART RATE, 12/14/16) Reported Meds & Prescriptions Reported Meds & Active Scripts Active Xanax (Alprazolam) 0.25 Mg Tab 0.25 Mg PO Q8HR PRN Lortab (Hydrocodone-Acetaminophen) 10-325 Mg Tab 1 Tab PO Q6H PRN Reported Fentanyl Patch 72 HR (Fentanyl) 12 Mcg/Hr Patch 12 Patch T-DERMAL Q72H Remove old patch when new one placed. Acetaminophen 650 Mg/20.3 Ml Solution Furosemide 40 Mg Tab 40 Mg PO DAILY Potassium Chloride ER (Potassium Chloride) 10 Meq Cap 10 Meq PO BID Ciprofloxacin (Ciprofloxacin HCl) 500 Mg Tab 500 Mg PO DAILY Paroxetine (Paroxetine HCl) 20 Mg Tab 20 Mg PO DAILY Simvastatin 10 Mg Tab 10 Mg PO DAILY Xarelto (Rivaroxaban) 20 Mg Tab 20 Mg PO DAILY Ditropan (Oxybutynin Chloride) 5 Mg Tab 10 Mg PO HS Amlodipine (Amlodipine Besylate) 5 Mg Tab 5 Mg PO DAILY Atenolol 25 Mg Tab 12.5 Mg PO DAILY Omeprazole 40 Mg Cap 40 Mg PO DAILY Levothyroxine (Levothyroxine Sodium) 75 Mcg Tab 75 Mcg PO DAILY Risperdal (Risperidone) 1 Mg Tab 1 Mg PO DAILY Remeron (Mirtazapine) 15 Mg Tab 7.5 Mg PO HS Review of Systems ROS Limitations: Poor Historian Eyes: No: Visual changes Respiratory: Positive: Shortness of Breath Musculoskeletal: No: Pain Neurologic: Positive: Weakness (generalized weakness), Change in Mentation Physical Exam Narrative General: The patient is a well-developed well-nourished female, decreased level of consciousness on arrival, she is responsive to painful stimulation. She does have a history of dementia, her baseline is unknown. Head and Neck exam: Head is normocephalic atraumatic. Eyes: The patient is uncooperative with formal extractor motion testing. Pupils are equal round and reactive to light. Nose: Midline septum with pink mucous membranes Mouth: Dentition unremarkable. Moist mucus membranes. Posterior oropharynx is not erythematous. No tonsillar hypertrophy. Uvula midline. Airway patent. Neck: No palpable lymphadenopathy. No nuchal rigidity. No thyromegaly. Cardiovascular: Regular rate and rhythm without murmurs, gallops, or rubs. No pulse deficit to the extremities and simultaneous auscultation and palpation of her radial artery. Lungs: Crackles/diminished breath sounds are audible in bilateral lung bases, no rhonchi, no wheezes. No accessory muscle use. No paroxysmal abdominal breathing. Abdomen: Soft, without tenderness to palpation in all 4 quadrants of the abdomen. No guarding, rebound, or rigidity. Normal bowel sounds are audible. No tenderness on palpation of McBurney's point. Extremities: No clubbing or cyanosis. The patient has 1+ pitting edema bilateral lower extremities. 2+ pulses in all 4 extremities. No calf tenderness on palpation. Back: No spinous process tenderness to palpation. No costovertebral angle tenderness to palpation. Neurologic Exam: The patient is uncooperative with formal neurologic testing. The patient has no evidence of facial asymmetry. She is spontaneously moving all extremities. Skin Exam: No rash noted. Intact skin that is warm and dry. Data Data Last Documented VS Vital Signs Date Time Temp Pulse Resp B/P Pulse Ox O2 Delivery O2 Flow Rate FiO2 12/14/16 22:45 94 12/14/16 22:45 Partial Rebreather 12.00 12/14/16 22:35 40 12/14/16 22:21 80 22 123/57 Orders Electrocardiogram (12/14/16 22:28) Complete Blood Count With Diff (12/14/16 22:28) Comprehensive Metabolic Panel (12/14/16 22:28) Creatine Kinase (Cpk) (12/14/16 22:28) Ckmb (Isoenzyme) Profile (12/14/16 22:28) Troponin I (12/14/16 22:28) B-Type Natriuretic Peptide (12/14/16 22:28) Prothrombin Time / Inr (Pt) (12/14/16 22:28) Act Partial Throm Time (Ptt) (12/14/16 22:28) Lipase (12/14/16 22:28) Urinalysis - C+S If Indicated (12/14/16 22:28) Magnesium (Mg) (12/14/16 22:28) Chest, Single Ap (12/14/16 22:28) Ct Brain W/O Iv Contrast(Rout) (12/14/16 22:28) Pelvis, Ap Only (Routine) (12/14/16 22:28) Iv Access Insert/Monitor (12/14/16 22:28) Ecg Monitoring (12/14/16 22:28) Oximetry (12/14/16 22:28) Ct Cerv Spine W/O Contrast (12/14/16 22:28) Blood Culture (12/14/16 22:55) Cefepime Inj (Maxipime Inj) (12/14/16 22:55) Azithromycin Inj (Zithromax Inj) (12/14/16 22:55) CKMB (12/14/16 22:35) CKMB% (12/14/16 22:35) Lactic Acid Sepsis Protocol (12/14/16 23:48) Admit Order (Ed Use Only) (12/15/16 00:50) Labs Laboratory Tests Test 12/14/16 12/14/16 22:35 23:57 White Blood Count 13.8 TH/MM3 Red Blood Count 3.51 MIL/MM3 Hemoglobin 12.1 GM/DL Hematocrit 34.9 % Mean Corpuscular Volume 99.3 FL Mean Corpuscular Hemoglobin 34.4 PG Mean Corpuscular Hemoglobin 34.7 % Concent Red Cell Distribution Width 13.6 % Platelet Count 154 TH/MM3 Mean Platelet Volume 8.1 FL Neutrophils (%) (Auto) 92.8 % Lymphocytes (%) (Auto) 3.5 % Monocytes (%) (Auto) 3.3 % Eosinophils (%) (Auto) 0.1 % Basophils (%) (Auto) 0.3 % Neutrophils # (Auto) 12.8 TH/MM3 Lymphocytes # (Auto) 0.5 TH/MM3 Monocytes # (Auto) 0.5 TH/MM3 Eosinophils # (Auto) 0.0 TH/MM3 Basophils # (Auto) 0.0 TH/MM3 CBC Comment DIFF FINAL Differential Comment Prothrombin Time 12.9 SEC Prothromb Time International 1.2 RATIO Ratio Activated Partial 31.0 SEC Thromboplast Time Sodium Level 138 MEQ/L Potassium Level 3.5 MEQ/L Chloride Level 106 MEQ/L Carbon Dioxide Level 24.3 MEQ/L Anion Gap 8 MEQ/L Blood Urea Nitrogen 16 MG/DL Creatinine 0.79 MG/DL Estimat Glomerular Filtration 69 ML/MIN Rate Random Glucose 150 MG/DL Calcium Level 8.7 MG/DL Magnesium Level 1.7 MG/DL Total Bilirubin 0.6 MG/DL Aspartate Amino Transf 27 U/L (AST/SGOT) Alanine Aminotransferase 20 U/L (ALT/SGPT) Alkaline Phosphatase 70 U/L Total Creatine Kinase 324 U/L Creatine Kinase MB 1.8 NG/ML Creatine Kinase MB % 0.6 % Troponin I 0.08 NG/ML B-Type Natriuretic Peptide 188 PG/ML Total Protein 7.4 GM/DL Albumin 3.3 GM/DL Lipase 107 U/L Lactic Acid Level 2.1 mmol/L MDM Medical Decision Making Medical Screen Exam Complete: Yes Emergency Medical Condition: Yes Medical Record Reviewed: Yes Interpretation(s) Last Impressions Pelvis X-Ray 12/14/162227 Signed Impressions: Service Date/Time: Wednesday, December 14, 2016 22:45 - CONCLUSION: The bony pelvic ring appears grossly intact. Diffuse osteopenia. Jareth Manrique MD Head CT 12/14/162227 Signed Impressions: Service Date/Time: Wednesday, December 14, 2016 23:05 - CONCLUSION: 1. Cerebral atrophy and chronic ischemic small vessel vasculopathy. 2. Old lacunar infarct left basal ganglia. 3. No acute hemorrhage or midline shift. Boo Ritchie MD Chest X-Ray 12/14/162227 Signed Impressions: Service Date/Time: Wednesday, December 14, 2016 22:43 - CONCLUSION: Lobar consolidation which is patchy and located in the right middle lobe. Mixed lucent and dense opacity in the left lower lung adjacent to the hemidiaphragm is nonspecific in appearance. Recommend further characterization with CT thorax with intravenous contrast. Jareth Manrique MD Cervical Spine CT 12/14/162227 Signed Impressions: Service Date/Time: Wednesday, December 14, 2016 23:05 - CONCLUSION: 1. Minimal anterolisthesis C4 on C5. 2. Advanced multilevel degenerative changes. 3. No fracture. 4. Multiple lucencies could be secondary to multiple myeloma. Boo Ritchie MD Differential Diagnosis CHF exacerbation, versus pneumonia, versus acute coronary syndrome Narrative Course During the course of the patients emergency department visit, the patients history, examination, and differential diagnosis were reviewed with the patient. The patient had IV access obtained and blood work sent for analysis. The patient was placed on a bedspread inspector with oximetry and blood pressure monitoring. An ECG was done on arrival. The patient's ECG reveals an electronic ventricular paced rhythm, no other acute abnormality. Heart rate is 69. Respiratory therapy was available at the bedside to assist with care. The patient was placed on BiPAP. The patient seemed to be responding well to BiPAP. The patient's O2 saturation came up between 97 and 99% on BiPAP 10 over 5, 60% which will be weaned as tolerated to maintain her O2 saturations greater than or equal to 92%. Given the patient's reportedly being found on the floor, trauma studies will be ordered given the patient's anticoagulation on Xarelto. The patient will have a CT scan of the head and neck done. A chest x-ray, pelvic x-ray has been ordered. The patient on reexamination was responding well to BiPAP. The patient appears to be more comfortable on examination work of breathing is decreased. The patients laboratory studies were reviewed and remarkable for a white count of 13.8, hemoglobin 12.1, platelets 154 with neutrophils 92.8, lymphocytes 3.5 with a chest x-ray that shows a lobar consolidation which is patchy and located in the right middle lobe, mixed lucency and dense opacity in the left lower lung adjacent to the hemidiaphragm is also noted. Recommend further characterization with a CT scan with intravenous contrast. Given the patient's findings of pneumonia and elevated white blood cell count the patient was given cefepime 2 g IV, 8 azithromycin 500 mg IV. CMP is remarkable for glucose of 150, CPK 324, MB percent 0.6, troponin I is 0.08, BNP is 188, lipase 107, PT 12.9, INR 1.2, PTT 31.0. Radiology studies were reviewed and remarkable for CT scan of the head and neck showed no acute abnormality. Pelvis x-ray showed no acute abnormality. The patients results were discussed with the patient, including the plan of care. I explained that further testing and/ or monitoring is indicated based on the patients history, examination, and/ or laboratory findings. Therefore, I recommended admission for additional evaluation. The patient expressed understanding and was agreeable with this plan. The patient was admitted to the hospital in guarded condition and [facility] Sepsis Criteria SIRS Criteria (2 or more): RR > 20 or PaCO2 < 32, WBC > 79017, < 4000 or > 10 % bands Sepsis Criteria (SIRS+source): Infect source susp/known Severe Sepsis (+one): Lactate >2 Criteria Outcome: Meets SIRS criteria, Meets sepsis criteria, Meets severe sepsis criteria Physician Communication Physician Communication The patient's case is discussed with Dr. Huynh who did agree to admit the patient for further evaluation and treatment at this time. Diagnosis Primary Impression: Pneumonia Qualified Code: J18.9 - Pneumonia of both lungs due to infectious organism, unspecified part of lung Additional Impression: Hypoxemia Admitting Information Admitting Physician Requests: Admit Cathy Lane MD Dec 14, 2016 22:48
[2016-12-14 22:50] LABS: AUTOMATED NEUTROPHIL # 12.8 TH/MM3 (1.8-7.7); BASOPHIL % 0.3 % (0.0-2.0); EOSINOPHIL % 0.1 % (0.0-4.0); HEMATOCRIT 34.9 % (35.0-46.0); HEMO FLAGS DIFF FINAL; LYMPH % 3.5 % (9.0-44.0); LYMPHOCYTE # 0.5 TH/MM3 (1.0-4.8); MEAN CELL VOLUME 99.3 FL (80.0-100.0); MEAN CORPUSCULAR HEMOGLOBIN 34.4 PG (27.0-34.0); MEAN CORPUSCULAR HGB CONC 34.7 % (32.0-36.0); MONO % 3.3 % (0.0-8.0); NEUT % 92.8 % (16.0-70.0); PLATELET COUNT 154 TH/MM3 (150-450); RED BLOOD COUNT 3.51 MIL/MM3 (4.00-5.30); RED CELL DISTRIBUTION WIDTH 13.6 % (11.6-17.2); WHITE BLOOD COUNT 13.8 TH/MM3 (4.0-11.0)
[2016-12-14] MEDS ORDERED: CEFEPIME INJ 2,000 MG in SODIUM CHLORIDE 0.9% INJ 100 ML IV STA (22:55)
[2016-12-14] MEDS ORDERED: AZITHROMYCIN INJ 500 MG in SODIUM CHLOR 0.9% 250 ML INJ 250 ML IV STA (22:55)
--- NOTE | 2016-12-14 22:58 | RADRPT ---
EXAM DATE/TIME: 12/14/2016 22:43 [facility] COMPARISON: No previous studies available for comparison. INDICATIONS : Short of breath post fall. MEDICAL HISTORY : None. SURGICAL HISTORY : Pacemaker. CABG. ENCOUNTER: Initial ACUITY: 1 day PAIN SCORE: Non-responsive. LOCATION: Bilateral chest FINDINGS: There is consolidative opacity involving the right middle lobe with loss of delineation of the right heart border and preservation of the right hemidiaphragm interface. The consolidative opacities appe ar to be multifocal in location. There is also a opacity in the left lower lung which surrounds a thomas cency which measures 6 cm. This is adjacent to the mid left hemidiaphragm and is of uncertain signif icance, cannot exclude herniation of the diaphragm or a pulmonary cyst. Evidence prior median sterno charly. Cardiac pacer leads project over the right atrium and right ventricle. Prominent calcificatio n in the aortic arch. The left hemidiaphragm is fairly well delineated. No evidence of pneumothorax on this semierect film. CONCLUSION: Lobar consolidation which is patchy and located in the right middle lobe. Mixed lucent and dense opa city in the left lower lung adjacent to the hemidiaphragm is nonspecific in appearance. Recommend fu rther characterization with CT thorax with intravenous contrast. Jareth Manrique MD on December 14, 2016 at 22:52 Board Certified Radiologist. This report was verified electronically.
--- NOTE | 2016-12-14 23:00 | RADRPT ---
EXAM DATE/TIME: 12/14/2016 22:45 [facility] COMPARISON: No previous studies available for comparison. INDICATIONS : Pelvic pain post fall. MEDICAL HISTORY : None. SURGICAL HISTORY : None. ENCOUNTER: Initial ACUITY: 1 day PAIN SCORE: Non-responsive. LOCATION: Bilateral pelvis FINDINGS: A single frontal view of the pelvis demonstrates no evidence of fracture. The bony pelvic ring is in tact. Bony mineralization is decreased. The soft tissues are intact. The right hip is held in exte rnal rotation the femoral neck is not well-seen. CONCLUSION: The bony pelvic ring appears grossly intact. Diffuse osteopenia. Jareth Manrique MD on December 14, 2016 at 22:57 Board Certified Radiologist. This report was verified electronically.
[2016-12-14 23:16] LABS: ALT (GPT) 20 U/L (10-53); ANION GAP 8 MEQ/L (5-15); AST (GOT) 27 U/L (15-37); BICARBONATE 24.3 MEQ/L (21.0-32.0); BLOOD UREA NITROGEN 16 MG/DL (7-18); CHLORIDE 106 MEQ/L (98-107); GLOMERULAR FILTRATION RATE 69 ML/MIN (>89); MAGNESIUM 1.7 MG/DL (1.5-2.5); POTASSIUM 3.5 MEQ/L (3.5-5.1); SODIUM (NA) 138 MEQ/L (136-145)
[2016-12-14 23:19] LABS: INTERNATIONAL NORMALIZED RATIO 1.2 RATIO; PROTHROMBIN TIME - PATIENT 12.9 SEC (9.8-11.6)
[2016-12-14 23:20] LABS: ALKALINE PHOSPHATASE 70 U/L (45-117); CREATINE KINASE 324 U/L (26-192); TOTAL BILIRUBIN ADULT 0.6 MG/DL (0.2-1.0)
--- NOTE | 2016-12-14 23:20 | RADRPT ---
EXAM DATE/TIME: 12/14/2016 23:05 [facility] COMPARISON: No previous studies available for comparison. INDICATIONS : Found on floor, lethargic. RADIATION DOSE: 33.04 CTDIvol (mGy) MEDICAL HISTORY : Cardiovascular disease. Rheumatoid arthritis. Gastroesophageal reflux disease.Hypertension. Hiatal he rnia. CVA. CAD. Dementia. SURGICAL HISTORY : Hysterectomy. Pacemaker. ENCOUNTER: Initial ACUITY: 1 day PAIN SCALE: Non-responsive LOCATION: cranial TECHNIQUE: Multiple contiguous axial images were obtained of the head. Using automated exposure control and adj ustment of the mA and/or kV according to patient size, radiation dose was kept as low as reasonably a chievable to obtain optimal diagnostic quality images. DICOM format image data is available electro nically for review and comparison. FINDINGS: There is marked central and cortical atrophy with dilatation of ventricular and sulcal spaces. There are areas low attenuation within the white matter. Old left basal ganglia lacunar infarct. There is n o parenchymal hemorrhage, acute infarction or mass lesion identified. There are no extra-axial fluid collections appreciated. The posterior fossa is unremarkable with midline fourth ventricle. The po rtion of the orbits and paranasal sinuses visualized are unremarkable. CONCLUSION: 1. Cerebral atrophy and chronic ischemic small vessel vasculopathy. 2. Old lacunar infarct left basal ganglia. 3. No acute hemorrhage or midline shift. Boo Ritchie MD on December 14, 2016 at 23:17 Board Certified Radiologist. This report was verified electronically.
[2016-12-14 23:33] LABS: CKMB 1.8 NG/ML (0.5-3.6)
--- NOTE | 2016-12-14 23:41 | RADRPT ---
EXAM DATE/TIME: 12/14/2016 23:05 [facility] COMPARISON: No previous studies available for comparison. INDICATIONS : Found on floor, lethargic. RADIATION DOSE: 20.97 CTDIvol (mGy) MEDICAL HISTORY : Cardiovascular disease. Rheumatoid arthritis. Gastroesophageal reflux disease.Hiatal hernia. CVA. CAD . Hypertension. SURGICAL HISTORY : Hysterectomy. Tonsillectomy.Pacemaker. ENCOUNTER: Initial ACUITY: 1 day PAIN SCALE: Non-responsive LOCATION: neck TECHNIQUE: Volumetric scanning of the cervical spine was performed. Multiplanar reconstructions in the sagittal, coronal and oblique axial planes were performed. Using automated exposure control and adjustment o f the mA and/or kV according to patient size, radiation dose was kept as low as reasonably achievable to obtain optimal diagnostic quality images. DICOM format image data is available electronically f or review and comparison. FINDINGS: VERTEBRAE: Normal vertebral body height. Advanced multilevel degenerative changes greatest from C5-C7. Multiple lucencies throughout the vertebral bodies. Pannus formation at C1/C2. ALIGNMENT: Minimal anterolisthesis C4 on C5. C2-C3: The bony spinal canal is normal in size. No evidence of disc bulge or herniation. The neural forami na are bilaterally patent. C3-C4: The bony spinal canal is normal in size. No evidence of disc bulge or herniation. The neural forami na are bilaterally patent. C4-C5: The bony spinal canal is normal in size. No evidence of disc bulge or herniation. The neural forami na are bilaterally patent. C5-C6: The bony spinal canal is normal in size. No evidence of disc bulge or herniation. The neural forami na are bilaterally patent. C6-C7: The bony spinal canal is normal in size. No evidence of disc bulge or herniation. The neural forami na are bilaterally patent. C7-T1: The bony spinal canal is normal in size. No evidence of disc bulge or herniation. The neural forami na are bilaterally patent. CONCLUSION: 1. Minimal anterolisthesis C4 on C5. 2. Advanced multilevel degenerative changes. 3. No fracture. 4. Multiple lucencies could be secondary to multiple myeloma. Boo Ritchie MD on December 14, 2016 at 23:36 Board Certified Radiologist. This report was verified electronically.
[2016-12-15] VITALS (15 sets, daily range): BP systolic 91–124; BP diastolic 47–86; PULSE 62–69; RESP 18–22; TEMP 98.3–100.9; O2SAT 94–100
[2016-12-15 02:01] LABS: LACTIC ACID GHOST NOT REPORTABLE
[2016-12-15] MEDS ORDERED: CHLORHEXIDINE GLUCONATE 2 % 1 PACK (2 CLOTHS)(extra cloths) TOPICAL PRN (02:30)
[2016-12-15 03:35] LABS: AUTOMATED NEUTROPHIL # 17.1 TH/MM3 (1.8-7.7); BASOPHIL % 0.2 % (0.0-2.0); HEMATOCRIT 34.5 % (35.0-46.0); HEMO FLAGS DIFF FINAL; LYMPH % 2.4 % (9.0-44.0); LYMPHOCYTE # 0.5 TH/MM3 (1.0-4.8); MEAN CELL VOLUME 100.5 FL (80.0-100.0); MEAN CORPUSCULAR HEMOGLOBIN 33.8 PG (27.0-34.0); MEAN CORPUSCULAR HGB CONC 33.7 % (32.0-36.0); MONO % 4.4 % (0.0-8.0); PLATELET COUNT 136 TH/MM3 (150-450); RED BLOOD COUNT 3.43 MIL/MM3 (4.00-5.30); RED CELL DISTRIBUTION WIDTH 13.4 % (11.6-17.2); WHITE BLOOD COUNT 18.4 TH/MM3 (4.0-11.0)
[2016-12-15] MEDS: CHLORHEXIDINE GLUCONATE 2 % 1 PACK (2 CLOTHS)(taper/protocol) TOPICAL SCH (04:00)
[2016-12-15 04:05] LABS: BICARBONATE 22.4 MEQ/L (21.0-32.0); POTASSIUM 3.5 MEQ/L (3.5-5.1)
[2016-12-15] MEDS ORDERED: FENTANYL T-DERMAL SCH (08:00)
[2016-12-15] MEDS ORDERED: ALPRAZolam 0.25 MG TAB PO PRN (08:00)
[2016-12-15] MEDS ORDERED: FUROSEMIDE 40 MG/4 ML VIAL IV PUSH ONE (08:30)
[2016-12-15] MEDS: VANCOMYCIN 1,000 MG/NS 250 ML IV SCH ×4 (08:37→21:57)
[2016-12-15] MEDS: CEFEPIME 1000 MG/NS 100 ML IV SCH ×4 (08:37→21:57)
[2016-12-15] MEDS: POTASSIUM CHLORIDE 10 MEQ CAP PO SCH ×2 (08:58→21:00)
[2016-12-15] MEDS: PRAVASTATIN SOD 20 MG TAB PO SCH (08:59)
[2016-12-15] MEDS: risperiDONE 1 MG TAB PO SCH (08:59)
[2016-12-15] MEDS: PARoxetine HCL 20 MG TAB PO SCH (08:59)
[2016-12-15] MEDS: PANTOPRAZOLE SOD 40 MG DELAYED RELEASE TAB PO SCH (08:59)
[2016-12-15] MEDS ORDERED: FUROSEMIDE 40 MG TAB PO SCH (09:00)
[2016-12-15] MEDS ORDERED: amLODIPine BESYLATE 5 MG TAB PO SCH (09:00)
[2016-12-15] MEDS: RIVAROXABAN 20 MG TAB PO SCH (09:00)
[2016-12-15] MEDS ORDERED: ATENOLOL 25 MG TAB PO SCH (09:00)
[2016-12-15] MEDS: LEVOTHYROXINE SODIUM 75 MCG TAB PO SCH (09:00)
[2016-12-15] MEDS ORDERED: POTASSIUM CHLOR 40 MEQ PREMIX 100 ML IV PRN ×2 (09:15)
[2016-12-15] MEDS ORDERED: POTASSIUM CHLORIDE 25 MEQ EFFERVESCENT TAB PO PRN (09:15)
[2016-12-15] MEDS ORDERED: MAGNESIUM SULFATE INJ 4 GM in SODIUM CHLORIDE 0.9% INJ 92 ML IV PRN (09:15)
[2016-12-15] MEDS ORDERED: MAGNESIUM SULFATE INJ 2 GM in SODIUM CHLORIDE 0.9% INJ 96 ML IV PRN (09:15)
[2016-12-15] MEDS ORDERED: POTASSIUM PHOSPHATE MONOBASIC 500 MG TAB PO/TUBE PRN (09:15)
[2016-12-15] MEDS ORDERED: MAGNESIUM OXIDE 400 MG TAB PO PRN (09:15)
[2016-12-15] MEDS ORDERED: POTASSIUM PHOSPHATE INJ 30 MMOL in SODIUM CHLOR 0.9% 250 ML INJ 250 ML IV PRN (09:15)
[2016-12-15] MEDS ORDERED: SODIUM PHOSPHATE INJ 30 MMOL in SODIUM CHLOR 0.9% 250 ML INJ 240 ML IV PRN (09:15)
[2016-12-15] MEDS ORDERED: POTASSIUM CHLOR 20 MEQ PREMIX 100 ML IV PRN ×3 (09:15)
[2016-12-15] MEDS ORDERED: POTASSIUM PHOSPHATE MONOBASIC 500 MG TAB PO PRN (09:15)
--- NOTE | 2016-12-15 09:43 | HHI.HP ---
HPI Service [facility] Primary Care Physician Unknown Admission Diagnosis Pneumonia, hypoxemia on RA Diagnoses: Chief Complaint: AMS Travel History International Travel<30 Days: No Contact w/Intl Traveler <30 Da: No Traveled to Known Affected Are: No History of Present Illness This is an 86-year-old elderly white female [facility] local [facility], significant past medical history hypertension, CHF, A. fib, chronic anticoagulation with Xarelto, dementia, diabetes, CVA. Per review of medical records, patient was sent to ER for hypoxia, sats 70s and 80s with dusky discoloration. Patient unable to provide any details, lethargic. Apparently patient was found on the floor. The by mouth the patient had been recently noted with decreased level of consciousness and was diagnosed with a UTI in the last 24 hours and started on Cipro. She was also noted with an elevated BNP and her Lasix was increased. When patient arrived, she was on CPAP with sats of 88-90%. In the emergency room, patient was placed on BiPAP, sats came up to 97-99%. Imaging studies were completed, pelvis x-ray did not show any acute findings. CT of the head showed old infarct left basal ganglia, no acute findings. Chest x-ray show lobar consolidation which is patchy located in the right middle lobe, mixed lucent and dense opacity in the left lower lung adjacent to the hemidiaphragm nonspecific. Cervical CT minimal anterolisthesis C4 on C5. Advanced multilevel degenerative changes. Multiple lucencies could be secondary to multiple myeloma. Laboratory workup remarkable for white blood count of 13.8, neutrophil 92.8. CMP remarkable for glucose of 150, CPK 324, MB percent 0.06. Troponin 0.08. BNP 188. Lactic acid 2.1. Patient was febrile, temperature 100.9. Patient was started on empiric antibiotics, cultures were obtained. IV fluids were given. Patient was admitted to the intensive care unit. Patient is examined, she opens eyes to voice and touch because back to sleep. She is not following commands. Patient is admitted for further evaluation and treatment. Review of Systems ROS Limitations: Altered Mental Status Past Family Social History Past Medical History 1. Arthritis. 2. Asthma. 3. History of atrial fibrillation. 4. Cardiovascular disease. 5. Coronary artery disease. 6. Hyperlipidemia. 7. CVA. 8. Dementia. 9. GERD. 10. Hiatal hernia. 11. Spinal stenosis. 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 13. Thyroid disease. Past Surgical History 1. Pacemaker. 2. Bypass surgery. 3. Coronary stents. 4. Bilateral cataracts. 5. section. 6. Hysterectomy. 7. Right knee surgery. Reported Medications Reported Meds & Active Scripts Active Xanax (Alprazolam) 0.25 Mg Tab 0.25 Mg PO Q8HR PRN Lortab (Hydrocodone-Acetaminophen) 10-325 Mg Tab 1 Tab PO Q6H PRN Reported Fentanyl Patch 72 HR (Fentanyl) 12 Mcg/Hr Patch 12 Patch T-DERMAL Q72H Remove old patch when new one placed. Acetaminophen 650 Mg/20.3 Ml Solution Furosemide 40 Mg Tab 40 Mg PO DAILY Potassium Chloride ER (Potassium Chloride) 10 Meq Cap 10 Meq PO BID Ciprofloxacin (Ciprofloxacin HCl) 500 Mg Tab 500 Mg PO DAILY Paroxetine (Paroxetine HCl) 20 Mg Tab 20 Mg PO DAILY Simvastatin 10 Mg Tab 10 Mg PO DAILY Xarelto (Rivaroxaban) 20 Mg Tab 20 Mg PO DAILY Ditropan (Oxybutynin Chloride) 5 Mg Tab 10 Mg PO HS Amlodipine (Amlodipine Besylate) 5 Mg Tab 5 Mg PO DAILY Atenolol 25 Mg Tab 12.5 Mg PO DAILY Omeprazole 40 Mg Cap 40 Mg PO DAILY Levothyroxine (Levothyroxine Sodium) 75 Mcg Tab 75 Mcg PO DAILY Risperdal (Risperidone) 1 Mg Tab 1 Mg PO DAILY Remeron (Mirtazapine) 15 Mg Tab 7.5 Mg PO HS Allergies: Coded Allergies: Epinephrine (Verified Allergy, Severe, HEART RACES, 12/14/16) Sulfa (Verified Allergy, Severe, ANGIO EDEMA, 12/14/16) Monosodium Glutamate (Verified Allergy, Mild, INCREASE HEART RATE, 12/14/16) Active Ordered Medications Inpatient Medications Acetaminophen/ Hydrocodone Bitart ([place] 10-325 Mg) 1 tab Q6HR PRN PO PAIN; Start 12/15/16 at 12:00 Albuterol/ Ipratropium (Duoneb Neb) 1 ampule Q4HR NEB PRN NEB WHEEZING; Start 12/15/16 at 09:45; Status UNV Alprazolam (Xanax) 0.25 mg Q8HR PRN PO ANXIETY; Start 12/15/16 at 08:00 Amlodipine Besylate (Norvasc) 5 mg DAILY PO ; Start 12/15/16 at 09:00 Atenolol (Tenormin) 12.5 mg DAILY PO ; Start 12/15/16 at 09:00 Azithromycin 500 mg/Sodium Chloride 250 ml @ 250 mls/hr ONCE STAT IV Last administered on 12/15/16 01:01; Start 12/14/16 at 22:55; Stop 12/14/16 at 23:54; Status DC Cefepime HCl 2000 mg/Sodium Chloride 100 ml @ 200 mls/hr ONCE STAT IV Last administered on 12/15/16 01:45; Start 12/14/16 at 22:55; Stop 12/14/16 at 23:24; Status DC Cefepime HCl/ Sodium Chloride (Maxipime Inj/NS Inj) 100 ml @ 200 mls/hr Q12H IV Last administered on 12/15/16 08:37; Start 12/15/16 at 08:00 Chlorhexidine Gluconate (Chlorhexidine 2% Cloth) 3 pack UNSCH PRN TOPICAL HYGIENIC CARE; Start 12/15/16 at 02:30; Stop 12/20/16 at 02:16 Furosemide (Lasix) 40 mg DAILY PO ; Start 12/15/16 at 09:00; Stop 12/15/16 at 09: 36; Status DC Furosemide 20 mg 20 mg BID@09,18 IV PUSH ; Start 12/16/16 at 09:00 Furosemide 40 mg 40 mg ONCE ONCE IV PUSH Last administered on 12/15/16 08:36; Start 12/15/16 at 08:30; Stop 12/15/16 at 08:31; Status DC Levothyroxine Sodium (Synthroid) 75 mcg DAILY@06 PO ; Start 12/15/16 at 09:00 Magnesium Oxide 800 mg 800 mg UNSCH PRN PO For Magnesium 1.2 - 1.6 mg/dL; Start 12/15/16 at 09:15 Magnesium Sulfate 2 gm/Sodium Chloride 100 ml @ 50 mls/hr UNSCH PRN IV For Magnesium 1.2 - 1.6 mg/dL; Start 12/15/16 at 09:15 Magnesium Sulfate/ Sodium Chloride (Magnesium Sulfate Inj/NS Inj) 100 ml @ 50 mls/hr UNSCH PRN IV For Magnesium 0.9 - 1.1 mg/dL; Start 12/15/16 at 09:15 Mirtazapine (Remeron) 7.5 mg HS PO ; Start 12/15/16 at 21:00 Miscellaneous (Pill Splitter) 1 ea UNSCH PRN OTHER SEE LABEL COMMENTS; Start at 10:00 Miscellaneous Information Patient in critical care unit? Ass... [id number] .XX ; Start 12/15/16 at 02:30 Non-Formulary Medication 12 patch Q72H T-DERMAL PAIN; Start 12/15/16 at 08:00; Stop 12/15/16 at 08:39; Status DC Oxybutynin Chloride (Ditropan) 10 mg HS PO ; Start 12/15/16 at 21:00 Pantoprazole Sodium (Protonix) 40 mg DAILY PO ; Start 12/15/16 at 09:00 Paroxetine HCl (Paxil) 20 mg DAILY PO ; Start 12/15/16 at 09:00 Potassium Phosphate 2000 mg 2,000 mg UNSCH PRN PO/TUBE SEE LABEL COMMENTS; Start 12/15/16 at 09:15 Potassium Phosphate 30 mmol/ Sodium Chloride 260 ml @ 42 mls/hr UNSCH PRN IV SEE LABEL COMMENTS; Start 12/15/16 at 09:15 Potassium Bicarb/ Potassium Chloride 50 meq 50 meq UNSCH PRN PO For Potassium 3.3 - 3.5 mEq/L; Start 12/15/16 at 09:15 Potassium Chloride (KCl 20 Meq Premix Inj) 100 ml @ 50 mls/hr Q2H PRN IV hypokalemia; Start 12/15/16 at 09:15 Potassium Chloride (KCl 40 Meq Premix Inj) 100 ml @ 50 mls/hr Q2H PRN IV For Potassium 2.8 - 3.2 mEq/L; Start 12/15/16 at 09:15 Potassium Chloride (KCl) 10 meq BID PO ; Start 12/15/16 at 09:00 Pravastatin Sodium (Pravachol) 20 mg DAILY PO ; Start 12/15/16 at 09:00 Risperidone (risperDAL) 1 mg DAILY PO ; Start 12/15/16 at 09:00 Rivaroxaban (Xarelto) 20 mg DAILY PO ; Start 12/15/16 at 09:00 Sodium Chloride (NS 1000 ml Inj) 1,000 ml @ 30 mls/hr Q24H IV ; Start 12/15/16 at 10:00 Sodium Phosphate/ Sodium Chloride (Sodium Phosphate Inj/NS 250 ml Inj) 250 ml @ 42 mls/hr UNSCH PRN IV For Phosphorus < 2.5 mg/dL; Start 12/15/16 at 09:15 Vancomycin HCl 1000 mg/Sodium Chloride 250 ml @ 250 mls/hr Q12H IV Last administered on 12/15/16t 08:37; Start 12/15/16 at 08:00 Family History unable to obtain Social History Per EMR, no use of alcohol, tobacco or illicit drugs. [facility] Physical Exam Vital Signs Vital Signs Date Time Temp Pulse Resp B/P Pulse Ox O2 Delivery O2 Flow Rate FiO2 12/15/16 08:08 95 Nasal Cannula 3.00 12/15/16 06:00 69 12/15/16 04:00 100.0 62 22 94/53 98 12/15/16 04:00 64 12/15/16 02:30 69 12/15/16 02:09 100.9 69 20 111/52 94 12/15/16 01:37 69 20 91/47 100 Non-Rebreather 12/14/16 22:45 94 12/14/16 22:45 94 Partial Rebreather 12.00 12/14/16 22:35 94 CPAP 10 40 12/14/16 22:21 80 22 123/57 89 12/14/16 22:00 94 40 Physical Exam GENERAL: This is a well-nourished, well-developed patient, in no apparent distress. SKIN: No rashes, ecchymoses or lesions. Cool and dry. HEAD: Atraumatic. Normocephalic. No temporal or scalp tenderness. EYES: Pupils equal round and reactive. No scleral icterus. No injection or drainage. ENT: Nose without bleeding, purulent drainage or septal hematoma. Throat without erythema, tonsillar hypertrophy or exudate. Uvula midline. Airway patent. NECK: Trachea midline. No JVD or lymphadenopathy. Supple, nontender, no meningeal signs. CARDIOVASCULAR: Regular rate and rhythm without murmurs, gallops, or rubs. RESPIRATORY: Bibasilar Rales. GASTROINTESTINAL: Abdomen soft, non-tender, nondistended. No hepato-splenomegaly , or palpable masses. No guarding. MUSCULOSKELETAL: Extremities without clubbing, cyanosis. +1 pitting edema. Pedal pulses 1+ bilaterally. No joint tenderness, effusion, or edema noted. No calf tenderness. Negative Homans sign bilaterally. NEUROLOGICAL: Lethargic, attempts to open eyes. Difficult to assess. Laboratory Laboratory Tests Test 12/14/16 12/14/16 12/15/16 12/15/16 22:35 23:57 02:00 03:22 White Blood Count 13.8 18.4 Red Blood Count 3.51 3.43 Hemoglobin 12.1 11.6 Hematocrit 34.9 34.5 Mean Corpuscular Volume 99.3 100.5 Mean Corpuscular Hemoglobin 34.4 33.8 Mean Corpuscular Hemoglobin 34.7 33.7 Concent Red Cell Distribution Width 13.6 13.4 Platelet Count 154 136 Mean Platelet Volume 8.1 8.2 Neutrophils (%) (Auto) 92.8 93.0 Lymphocytes (%) (Auto) 3.5 2.4 Monocytes (%) (Auto) 3.3 4.4 Eosinophils (%) (Auto) 0.1 0.0 Basophils (%) (Auto) 0.3 0.2 Neutrophils # (Auto) 12.8 17.1 Lymphocytes # (Auto) 0.5 0.5 Monocytes # (Auto) 0.5 0.8 Eosinophils # (Auto) 0.0 0.0 Basophils # (Auto) 0.0 0.0 CBC Comment DIFF FINAL DIFF FINAL Differential Comment Prothrombin Time 12.9 Prothromb Time International 1.2 Ratio Activated Partial 31.0 Thromboplast Time Sodium Level 138 139 Potassium Level 3.5 3.5 Chloride Level 106 105 Carbon Dioxide Level 24.3 22.4 Anion Gap 8 12 Blood Urea Nitrogen 16 19 Creatinine 0.79 0.91 Estimat Glomerular Filtration 69 58 Rate Random Glucose 150 160 Calcium Level 8.7 8.5 Magnesium Level 1.7 Total Bilirubin 0.6 Aspartate Amino Transf 27 (AST/SGOT) Alanine Aminotransferase 20 (ALT/SGPT) Alkaline Phosphatase 70 Total Creatine Kinase 324 Creatine Kinase MB 1.8 Creatine Kinase MB % 0.6 Troponin I 0.08 B-Type Natriuretic Peptide 188 Total Protein 7.4 Albumin 3.3 Lipase 107 Lactic Acid Level 2.1 3.0 Nasal Screen MRSA (PCR) MRSA NOT DETECTED Date/Time Procedure Status Source Growth 12/14/16 23:25 Aerobic Blood Culture Received Blood Peripheral Pending 12/14/16 23:25 Anaerobic Blood Culture Received Blood Peripheral Pending Result Diagram: 12/15/16 0322 12/15/16 0322 Imaging Last Impressions Pelvis X-Ray 12/14/162227 Signed Impressions: Service Date/Time: Wednesday, December 14, 2016 22:45 - CONCLUSION: The bony pelvic ring appears grossly intact. Diffuse osteopenia. Jareth Manrique MD Head CT 12/14/162227 Signed Impressions: Service Date/Time: Wednesday, December 14, 2016 23:05 - CONCLUSION: 1. Cerebral atrophy and chronic ischemic small vessel vasculopathy. 2. Old lacunar infarct left basal ganglia. 3. No acute hemorrhage or midline shift. Boo Ritchie MD Chest X-Ray 12/14/162227 Signed Impressions: Service Date/Time: Wednesday, December 14, 2016 22:43 - CONCLUSION: Lobar consolidation which is patchy and located in the right middle lobe. Mixed lucent and dense opacity in the left lower lung adjacent to the hemidiaphragm is nonspecific in appearance. Recommend further characterization with CT thorax with intravenous contrast. Jareth Manrique MD Cervical Spine CT 12/14/162227 Signed Impressions: Service Date/Time: Wednesday, December 14, 2016 23:05 - CONCLUSION: 1. Minimal anterolisthesis C4 on C5. 2. Advanced multilevel degenerative changes. 3. No fracture. 4. Multiple lucencies could be secondary to multiple myeloma. Boo Ritchie MD Assessment and Plan Problem List: (1) Sepsis (2) Pneumonia (3) Hypoxemia (4) Atrial fibrillation (5) Dementia (6) CHF (congestive heart failure) (7) Leukocytosis (8) HTN (hypertension) (9) Diabetes 1.5, managed as type 2 Assessment and Plan Admit to Dr. Berkowitz 86-year-old elderly white female [facility] with altered mental status, hypoxia. Was found with elevated BNP, possible pneumonia , lactic acidosis, sepsis. Sepsis, possibly secondary to pulmonary process Continue with cautious hydration, patient in mild congestive heart failure Continue with antibiotics follow cultures -Repeat lactic acid in the morning -Swallow eval Acute on chronic CHF, BNP 188 Hypoxia -Continue with oxygen per nasal cannula -DuoNeb's when necessary We'll change Lasix to 40 mg IV daily Altered mental status, possibly secondary to sepsis Underlying dementia, history of CVA -Keep nothing by mouth at this time, continue with cautious hydration -Speech swallow eval -Hold by mouth meds at this time until patient more awake History hypertension, patient blood pressure actually on the low side, 90s to 100s Hold antihypertensive agents History of A. fib on chronic anticoagulation -Resume Xarelto when able to take by mouth Diet controlled diabetes Accu-Cheks before meals and at bedtime with insulin therapy CAD History of CABG Pacemaker -Resume home medications when able to swallow Home medications reviewed, some initiated Speech and swallow eval Patient's condition is guarded, full code We'll try to attempt to contact family to discuss CODE STATUS Plan of care discussed with attending and registered nurse. Further management of the patient will be dependent on the hospital course This patient was seen by myself and Dr. Berkowitz, this H&P is written on his behalf Physician Certification 2 Midnight Certification Type: Admission for Inpatient Services Order for Inpatient Services The services are ordered in accordance with Medicare regulations or non- Medicare payer requirements, as applicable. In the case of services not specified as inpatient-only, they are appropriately provided as inpatient services in accordance with the 2-midnight benchmark. Estimated LOS (days): 2 2 days is the estimated time the patient will need to remain in the hospital, assuming treatment plan goals are met and no additional complications. Post-Hospital Plan: SNF Problem Qualifiers (1) Sepsis: Qualified Code: A41.9 - Sepsis, due to unspecified organism (2) Pneumonia: Qualified Code: J18.9 - Pneumonia of both lungs due to infectious organism, unspecified part of lung (3) Atrial fibrillation: Qualified Code: I48.91 - Atrial fibrillation, unspecified type (4) Dementia: Qualified Code: F03.90 - Dementia without behavioral disturbance, unspecified dementia type (5) CHF (congestive heart failure): Qualified Code: I50.9 - Acute on chronic congestive heart failure, unspecified congestive heart failure type (6) Leukocytosis: Qualified Code: D72.829 - Leukocytosis, unspecified type (7) HTN (hypertension): Qualified Code: I10 - Essential hypertension Karoline Rico Dec 15, 2016 09:43
[2016-12-15] MEDS ORDERED: PILL SPLITTER OTHER PRN (10:00)
[2016-12-15] MEDS ORDERED: RESP: ALBUTEROL 2.5 MG/IPRATROPIUM 0.5 MG NEB (PRN) NEB (10:00)
[2016-12-15] MEDS: RESP: ALBUTEROL 2.5 MG/IPRATROPIUM 0.5 MG NEB (SCH) NEB ×3 (11:28→19:32)
[2016-12-15] MEDS: SODIUM CHLOR 0.9% 1000 ML INJ 1,000 ML IV SCH (11:37)
--- NOTE | 2016-12-15 13:15 | EKG ---
Date Performed: 12/14/2016 Time Performed: 22:25:09 PTAGE: 86 years EKG: ELECTRONIC VENTRICULAR PACEMAKER ABNORMAL RHYTHM ECG INTERPRETATION BASED ON A DEFAULT AGE OF 40 YEARS PREVIOUS TRACING : 06/07/2010 03.18 Compared to prior tracing no significant change DOCTOR: Hakeem Mccoy Interpretating Date/Time 12/15/2016 13:12:09
[2016-12-15] MEDS ORDERED: DEXTROSE 50% IN WATER 50 ML VIAL(D50) IV PRN (16:15)
[2016-12-15] MEDS ORDERED: GLUCAGON 1 MG/ML VIAL OTHER PRN (16:15)
--- NOTE | 2016-12-15 16:18 | MB ---
cc: ELEONORA ELLIS DATE OF CONSULTATION 12/15/[address] Berkowitz. REASON FOR CONSULTATION Evaluate for pneumonia, lung infiltrate. HISTORY OF THE PRESENT ILLNESS Ms. Grimaldo is an 86-year-old white female who has history of underlying dementia, coronary artery disease, diabetes mellitus, atrial fibrillation. She takes anticoagulation with Xarelto. She was brought from the long-term with decreased oxygen saturation and rose discoloration. The patient was put on supplemental oxygen with improvement in her symptoms. She was evaluated in the emergency room. LABORATORY DATA Her CBC showed WBC count 18.4, hemoglobin 11.4, hematocrit 34.5, MCV 100, platelet count 136. Sodium 139, potassium 3.5, chloride 105, CO2 22, BUN 19, creatinine 0.91. INR is 1.2. IMAGING Chest x-ray shows she has lobar consolidation and patchy infiltrate in the right middle lobe. Also she has a lucent density in the left lower lobe possible atelectasis. PAST MEDICAL HISTORY Significant for: 1. A history of coronary artery disease. 2. Congestive heart failure. 3. Hypertension. 4. Atrial fibrillation. 5. Hypothyroidism. 6. Asthma. 7. History of CVA. MEDICATIONS She is currently takin. Lasix 20 mg IV. 2. Remeron 7.5 mg at nighttime. 3. Oxybutynin 10 mg at nighttime. 4. Hydrocodone p.r.n. 5. Albuterol/Atrovent nebulizer treatment. 6. Vancomycin IV. 7. Amlodipine 5 mg daily. 9. Levothyroxine 75 micrograms a day. 10. Paxil 20 mg a day. 11. Xarelto 20 mg a day. 12. Pravastatin 20 milligrams a day. 13. Protonix 40 mg a day. 14. Vancomycin IV. 15. Cefepime 1 gram q.12h. ALLERGIES SHE IS ALLERGIC TO EPINEPHRINE, MONOSODIUM GLUCONATE AND SULFA. SOCIAL HISTORY Not available. FAMILY HISTORY Not available. REVIEW OF SYSTEMS I cannot assess. PHYSICAL EXAMINATION GENERAL: An elderly female, obtunded. She is mild short of breath on nasal cannula maintains good oxygen saturation. VITAL SIGNS: Blood pressure 163/76, heart rate 69, respirations 16, temperature 100, saturation 95% on 3 liters nasal cannula. HEENT: Pupils are equal and reactive to light. Oral mucosa, nasal mucosa normal. NECK: Supple. JVP not raised. CHEST: She has a few scattered rhonchi, a few basal rales. CARDIOVASCULAR: S1, S2 normal. ABDOMEN: Soft, nondistended. Bowel sounds are present. EXTREMITIES: No edema. She has tremors of the right hand. CENTRAL NERVOUS SYSTEM: The patient is obtunded. Moves extremities. IMPRESSION 1. Right lower lobe pneumonia. 2. Left lower lobe lucent density and possible atelectasis. 3. Congestive heart failure. 4. Coronary artery disease. 5. Diabetes mellitus. 6. Dementia. 7. Atrial fibrillation. PLAN I discussed with Dr. Berkowitz we will give her antibiotics, cefepime and vancomycin pending the cultures. Supplement her oxygen with nasal cannula. If her infiltrate does not get better, then she will need a CT scan of the chest. Monitor her electrolytes and blood sugar. Further treatment will depend on the course in the hospital. Thank you Dr. Berkowitz for this consultation. MD CYNTHIA Amin/BELL /2:12 PM /3:56 PM TOMER
[2016-12-15] MEDS: OXYBUTYNIN CHLORIDE 5 MG TAB PO SCH (21:00)
[2016-12-15] MEDS: MIRTAZAPINE 15 MG TAB PO SCH (21:00)
[2016-12-15] MEDS: INSULIN ASPART SUPPLEMENTAL SCALE SQ SCH (21:00)
[2016-12-16] VITALS (27 sets, daily range): BP systolic 109–184; BP diastolic 55–112; PULSE 68–167; RESP 16–35; TEMP 98.9–99.5; O2SAT 90–100
[2016-12-16] MEDS: CHLORHEXIDINE GLUCONATE 2 % 1 PACK (2 CLOTHS)(taper/protocol) TOPICAL SCH (04:00)
[2016-12-16] MEDS: LEVOTHYROXINE SODIUM 75 MCG TAB PO SCH (06:00)
[2016-12-16 06:19] LABS: HEMATOCRIT 33.1 % (35.0-46.0); MEAN CELL VOLUME 100.7 FL (80.0-100.0); MEAN CORPUSCULAR HEMOGLOBIN 32.9 PG (27.0-34.0); MEAN CORPUSCULAR HGB CONC 32.6 % (32.0-36.0); PLATELET COUNT 141 TH/MM3 (150-450); RED BLOOD COUNT 3.29 MIL/MM3 (4.00-5.30); RED CELL DISTRIBUTION WIDTH 13.6 % (11.6-17.2); REVIEW FLAG FINAL; WHITE BLOOD COUNT 17.7 TH/MM3 (4.0-11.0)
[2016-12-16] MEDS: INSULIN ASPART SUPPLEMENTAL SCALE SQ SCH ×4 (06:39→20:20)
[2016-12-16 06:40] LABS: POTASSIUM 3.3 MEQ/L (3.5-5.1)
[2016-12-16] MEDS: RESP: ALBUTEROL 2.5 MG/IPRATROPIUM 0.5 MG NEB (SCH) NEB ×4 (08:00→20:24)
[2016-12-16] MEDS: CEFEPIME 1000 MG/NS 100 ML IV SCH ×4 (08:36→20:05)
[2016-12-16] MEDS: POTASSIUM CHLORIDE 10 MEQ CAP PO SCH ×2 (08:37→20:06)
[2016-12-16] MEDS: RIVAROXABAN 20 MG TAB PO SCH (08:37)
[2016-12-16] MEDS: PARoxetine HCL 20 MG TAB PO SCH (08:37)
[2016-12-16] MEDS: PANTOPRAZOLE SOD 40 MG DELAYED RELEASE TAB PO SCH (08:37)
[2016-12-16] MEDS: PRAVASTATIN SOD 20 MG TAB PO SCH (08:37)
[2016-12-16] MEDS: risperiDONE 1 MG TAB PO SCH (08:37)
[2016-12-16] MEDS: VANCOMYCIN 1,000 MG/NS 250 ML IV SCH ×4 (08:38→20:06)
[2016-12-16] MEDS: FUROSEMIDE 20 MG/2 ML VIAL IV PUSH SCH ×2 (08:38→16:54)
[2016-12-16] MEDS: SODIUM CHLOR 0.9% 1000 ML INJ 1,000 ML IV SCH (11:12)
--- NOTE | 2016-12-16 12:31 | PD.CONS ---
Consult Service Palliative Care Consult Requested By Dr. Berkowitz . Primary Care Physician Unknown . Reason for Consultation a. To assist with evaluation and management of symptoms including: dyspnea , encephalopathy b. To assist medical decision maker(s) with: better understanding of current medical conditions; weighing benefits/burdens of medical treatment options; making medical treatment decisions. . HPI History of Present Illness This 86-year-old female residential resident, with a past history of dementia, CHF, diabetes, CAD, CVA, atrial fibrillation, and hypertension, was found to have a UTI a day or 2 prior to this admission and had been started on Cipro at the residential. The patient then became less responsive and appeared dyspneic , and she was found on the floor at the residential without any obvious injury ; she was then brought to the emergency department. In the ambulance en route, the patient was noted to have an oxygen saturation in the 80s and she was placed on BiPAP. That was continued in the emergency department. Findings in the emergency department included: * Temp 100.9, pulse 100 * White count 13.8, hemoglobin 12.1 * Sodium 138, creatinine 0.79, albumin 3.3 * Lactic acid 2.1 * BNP 188 * CT scan of C-spine revealed degenerative disease; multiple lucencies were noted that may represent multiple myeloma * CT brain scan revealed significant atrophy, and an old lacunar infarct in the left basal ganglia The patient was admitted, cultures were obtained, and antibiotics were initiated. Initially, she was on BiPAP, but as of today he is on nasal cannula oxygen supplementation. Her white count has gone up to 18.4, and creatinine remained stable at 0.91. The patient's prognosis was felt to be poor. Palliative Care was consulted to assist with symptom management, and to enter into discussions with the patient' s family regarding her illnesses, prognosis, and the benefits and burdens of the future treatment options. . Function/Cognitive Trajectory The patient has been a long-term residential resident, at least the past 3 years. She is nonambulatory. . Review of Systems ROS Limitations: Altered Mental Status Constitutional: COMPLAINS OF: Fever Endocrine: DENIES: Polyuria Eyes: DENIES: Eye inflammation Ears, nose, mouth, throat: DENIES: Epistaxis Respiratory: COMPLAINS OF: Cough, Shortness of breath Cardiovascular: DENIES: Syncope, Lower Extremity Edema Gastrointestinal: DENIES: Bloody stools, Constipation, Diarrhea, Vomiting, Vomiting blood Genitourinary: DENIES: Hematuria Musculoskeletal: DENIES: Joint Swelling Integumentary: DENIES: Rash Hematologic/Lymphatics: DENIES: Bruising Immunologic/Allergic: DENIES: Urticaria Neurologic: DENIES: Localized weakness, Seizures Psychiatric: COMPLAINS OF: Confusion, Agitation Past Family Social History Coded Allergies: Epinephrine (Verified Allergy, Severe, HEART RACES, 12/14/16) Sulfa (Verified Allergy, Severe, ANGIO EDEMA, 12/14/16) Monosodium Glutamate (Verified Allergy, Mild, INCREASE HEART RATE, 12/14/16) Past Medical History * Respiratory failure, hypoxic * Pneumonia, bilateral * Multiple lucencies on cervical spine CT scan, rule out multiple myeloma * CHF, mild, recurrent * Dementia, probably end-stage * CAD * History of CVA * Atrial fibrillation, intermittent * Degenerative arthritis * GERD * Hypertension * Hypothyroidism * Spinal stenosis * Resting tremor * Hyperlipidemia . Past Surgical History * Tonsillectomy * Hysterectomy * * Cataracts * CABG 1994 * Coronary stent 2002 * Right knee surgery 2004 * Pacemaker . Reported Medications Xanax (Alprazolam) 0.25 Mg Tab 0.25 Mg PO Q8HR PRN Lortab (Hydrocodone-Acetaminophen) 10-325 Mg Tab 1 Tab PO Q6H PRN Reported Fentanyl Patch 72 HR (Fentanyl) 12 Mcg/Hr Patch 12 Patch T-DERMAL Q72H Remove old patch when new one placed. Acetaminophen 650 Mg/20.3 Ml Solution Furosemide 40 Mg Tab 40 Mg PO DAILY Potassium Chloride ER (Potassium Chloride) 10 Meq Cap 10 Meq PO BID Ciprofloxacin (Ciprofloxacin HCl) 500 Mg Tab 500 Mg PO DAILY Paroxetine (Paroxetine HCl) 20 Mg Tab 20 Mg PO DAILY Simvastatin 10 Mg Tab 10 Mg PO DAILY Xarelto (Rivaroxaban) 20 Mg Tab 20 Mg PO DAILY Ditropan (Oxybutynin Chloride) 5 Mg Tab 10 Mg PO HS Amlodipine (Amlodipine Besylate) 5 Mg Tab 5 Mg PO DAILY Atenolol 25 Mg Tab 12.5 Mg PO DAILY Omeprazole 40 Mg Cap 40 Mg PO DAILY Levothyroxine (Levothyroxine Sodium) 75 Mcg Tab 75 Mcg PO DAILY Risperdal (Risperidone) 1 Mg Tab 1 Mg PO DAILY Remeron (Mirtazapine) 15 Mg Tab 7.5 Mg PO HS . Current Medications Medications (Trade) Dose Ordered Sig/Rehan Route Start Time Stop Time Status Last Admin Vancomycin HCl 1000 mg/Sodium Chloride 250 ml @ 250 mls/hr Q12H IV 12/15/16 08:00 12/16/16 08:38 (Maxipime Inj/NS Inj) 100 ml @ 200 mls/hr Q12H IV 12/15/16 08:00 12/16/16 08:36 Miscellaneous Information Patient in critical care unit? Ass... Q361D .XX 12/15/16 02:30 (Chlorhexidine 2% Cloth) 3 pack DAILY@04 TOPICAL 12/15/16 04:00 12/19/16 04:01 12/16/16 04:00 (Chlorhexidine 2% Cloth) 3 pack UNSCH PRN TOPICAL 12/15/16 02:30 12/20/16 02:16 (Xanax) 0.25 mg Q8HR PRN PO 12/15/16 08:00 ([place] 10-325 Mg) 1 tab Q6HR PRN PO 12/15/16 12:00 (Synthroid) 75 mcg DAILY@06 PO 12/15/16 09:00 (Remeron) 7.5 mg HS PO 12/15/16 21:00 (Ditropan) 10 mg HS PO 12/15/16 21:00 (Paxil) 20 mg DAILY PO 12/15/16 09:00 12/16/16 08:37 (KCl) 10 meq BID PO 12/15/16 09:00 12/16/16 08:37 (risperDAL) 1 mg DAILY PO 12/15/16 09:00 12/16/16 08:37 (Xarelto) 20 mg DAILY PO 12/15/16 09:00 12/16/16 08:37 (Protonix) 40 mg DAILY PO 12/15/16 09:00 12/16/16 08:37 (Pravachol) 20 mg DAILY PO 12/15/16 09:00 12/16/16 08:37 Miscellaneous 1 ea 1 ea UNSCH PRN OTHER 12/15/16 10:00 Potassium Chloride 100 ml @ 50 mls/hr Q2H PRN IV 12/15/16 09:15 (KCl 20 Meq Premix Inj) 100 ml @ 50 mls/hr Q2H PRN IV 12/15/16 09:15 Potassium Bicarb/ Potassium Chloride 50 meq 50 meq UNSCH PRN PO 12/15/16 09:15 Potassium Chloride 100 ml @ 25 mls/hr UNSCH PRN IV 12/15/16 09:15 Potassium Chloride 100 ml @ 50 mls/hr Q2H PRN IV 12/15/16 09:15 (Magnesium Sulfate Inj/NS Inj) 100 ml @ 50 mls/hr UNSCH PRN IV 12/15/16 09:15 Magnesium Oxide 800 mg 800 mg UNSCH PRN PO 12/15/16 09:15 (Magnesium Sulfate Inj/NS Inj) 100 ml @ 50 mls/hr UNSCH PRN IV 12/15/16 09:15 Potassium Phosphate 2000 mg 2,000 mg Q4H PRN PO 12/15/16 09:15 (Sodium Phosphate Inj/NS 250 ml Inj) 250 ml @ 42 mls/hr UNSCH PRN IV 12/15/16 09:15 Potassium Phosphate 2000 mg 2,000 mg UNSCH PRN PO/TUBE 12/15/16 09:15 Potassium Phosphate 30 mmol/ Sodium Chloride 260 ml @ 42 mls/hr UNSCH PRN IV 12/15/16 09:15 (KCl 20 Meq Premix Inj) 100 ml @ 50 mls/hr Q2H PRN IV 12/15/16 09:15 Furosemide 20 mg 20 mg BID@,18 IV PUSH 12/16/16 09:00 12/16/16 08:38 (NS 1000 ml Inj) 1,000 ml @ 30 mls/hr Q24H IV 12/15/16 10:00 12/16/16 11:12 (D50w (Vial) Inj) 50 ml UNSCH PRN IV 12/15/16 16:15 (Glucagon Inj) 1 mg UNSCH PRN OTHER 12/15/16 16:15 Family History Both parents reportedly of "old age." The patient has one son alive and well in [place]. . Substance Use Tobacco: None Alcohol: None Prescription med abuse: None Illicits: None . Psychosocial History The patient was born in [place], but moved to [place] at least 15 years ago. She was in 2001 and lived alone until about 3 or 4 years ago when her dementia (progressing and she was moved to a residential. She has been a residential resident since then. She has one son, Miguel, in [place]. 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 . Spiritual/Cultural Factors The patient is [employer], and the son believes she would like a visit from a Rabbi. . Living Will: Completed, but not made available Health Care Surrogate: Copy in medical record Durable Power of Cloud Services Architect: Copy in medical record Health Care Surrogate(s): Son, Miguel Grimaldo . Documented care wishes: The patient has a living will, but I am waiting to see a copy of that to see just how it is worded. . Family/friends goals: The patient's son does not want his mother to suffer, but he is having difficulty making a resuscitation decision, not wanting to "feel guilty about killing her." . Ethical and Legal Issues There are no ethical issues that would impact her care or decision-making at this time. The patient lacks capacity for decision-making, and because of her dementia and current illnesses will not regain that capacity. She had previously designated her only child/son as healthcare surrogate. . Physical Exam Vital Signs Date Time Temp Pulse Resp B/P Pulse Ox O2 Delivery O2 Flow Rate FiO2 12/16/16 08:01 99 Nasal Cannula 9.00 12/16/16 06:00 69 12/16/16 04:00 98.9 69 18 145/82 100 12/16/16 04:00 69 12/16/16 02:00 72 12/16/16 00:00 70 12/16/16 00:00 99.2 70 16 123/60 98 12/15/16 22:00 69 12/15/16 20:00 98.3 69 18 124/60 97 12/15/16 20:00 69 12/15/16 19:32 96 Nasal Cannula 3.00 12/15/16 18:00 69 12/15/16 17:00 69 12/15/16 17:00 69 12/15/16 16:00 69 12/15/16 16:00 69 12/15/16 15:00 69 12/15/16 15:00 69 12/15/16 15:00 69 18 121/86 95 12/15/16 15:00 69 12/15/16 12/16/16 19:00 07:00 Intake Total 444 ml 772 ml Output Total 1800 ml 650 ml Balance -1356 ml 122 ml Intake Oral 0 ml IV Total 444 ml 772 ml Output Urine Total 1800 ml 650 ml # Bowel Movements 0 Exam CONSTITUTIONAL/GENERAL: This is an elderly, weak patient, in no apparent distress. TUBES/LINES/DRAINS: Nasal oxygen, peripheral IV SKIN: No jaundice, rashes, or lesions. Ecchymoses on upper extremities. No wounds seen anteriorly. Skin temperature appropriate. Not diaphoretic. HEAD: Atraumatic. Normocephalic. EYES: Pupils equal and round and reactive. Extraocular motions intact. No scleral icterus. No injection or drainage. Fundi not examined. ENT: Nose without bleeding or purulent drainage. Throat without visible erythema, exudates, masses, or lesions. NECK: Trachea midline. Supple, nontender. No palpable thyroid enlargement or nodularity. CARDIOVASCULAR: Regular rate and rhythm without murmurs, gallops, or rubs. No JVD. Peripheral pulses symmetric. RESPIRATORY/CHEST: Symmetric, unlabored respirations. Scattered rhonchi bilateral GASTROINTESTINAL: Abdomen soft, non-tender, nondistended. No hepato-splenomegaly , or palpable masses. No guarding. Bowel sounds present. GENITOURINARY: Without palpable bladder distension. MUSCULOSKELETAL: Extremities without clubbing, cyanosis, or edema. No joint tenderness or effusion noted. No calf tenderness. No mottling or clubbing. LYMPHATICS: No palpable cervical or supraclavicular adenopathy. NEUROLOGICAL: Lethargic, mumbles a few words, does not answer questions, does follow some simple commands.. PSYCHIATRIC: no apparent hallucinations or other psychotic thought process. . Diagnostic Tests Laboratory Laboratory Tests Test 12/14/16 12/14/16 12/15/16 12/15/16 22:35 23:57 02:00 03:22 White Blood Count 13.8 TH/MM3 18.4 TH/MM3 (4.0-11.0) (4.0-11.0) Red Blood Count 3.51 MIL/MM3 3.43 MIL/MM3 (4.00-5.30) (4.00-5.30) Hemoglobin 12.1 GM/DL 11.6 GM/DL (11.6-15.3) (11.6-15.3) Hematocrit 34.9 % 34.5 % (35.0-46.0) (35.0-46.0) Mean Corpuscular Volume 99.3 FL 100.5 FL (80.0-100.0) (80.0-100.0) Mean Corpuscular Hemoglobin 34.4 PG 33.8 PG (27.0-34.0) (27.0-34.0) Mean Corpuscular Hemoglobin 34.7 % 33.7 % Concent (32.0-36.0) (32.0-36.0) Red Cell Distribution Width 13.6 % 13.4 % (11.6-17.2) (11.6-17.2) Platelet Count 154 TH/MM3 136 TH/MM3 (150-450) (150-450) Mean Platelet Volume 8.1 FL 8.2 FL (7.0-11.0) (7.0-11.0) Neutrophils (%) (Auto) 92.8 % 93.0 % (16.0-70.0) (16.0-70.0) Lymphocytes (%) (Auto) 3.5 % 2.4 % (9.0-44.0) (9.0-44.0) Monocytes (%) (Auto) 3.3 % (0.0-8.0) 4.4 % (0.0-8.0) Eosinophils (%) (Auto) 0.1 % (0.0-4.0) 0.0 % (0.0-4.0) Basophils (%) (Auto) 0.3 % (0.0-2.0) 0.2 % (0.0-2.0) Neutrophils # (Auto) 12.8 TH/MM3 17.1 TH/MM3 (1.8-7.7) (1.8-7.7) Lymphocytes # (Auto) 0.5 TH/MM3 0.5 TH/MM3 (1.0-4.8) (1.0-4.8) Monocytes # (Auto) 0.5 TH/MM3 0.8 TH/MM3 (0-0.9) (0-0.9) Eosinophils # (Auto) 0.0 TH/MM3 0.0 TH/MM3 (0-0.4) (0-0.4) Basophils # (Auto) 0.0 TH/MM3 0.0 TH/MM3 (0-0.2) (0-0.2) CBC Comment DIFF FINAL DIFF FINAL Differential Comment Prothrombin Time 12.9 SEC (9.8-11.6) Prothromb Time International 1.2 RATIO Ratio Activated Partial 31.0 SEC Thromboplast Time (24.3-30.1) Sodium Level 138 MEQ/L 139 MEQ/L (136-145) (136-145) Potassium Level 3.5 MEQ/L 3.5 MEQ/L (3.5-5.1) (3.5-5.1) Chloride Level 106 MEQ/L 105 MEQ/L (98-107) (98-107) Carbon Dioxide Level 24.3 MEQ/L 22.4 MEQ/L (21.0-32.0) (21.0-32.0) Anion Gap 8 MEQ/L (5-15) 12 MEQ/L (5-15) Blood Urea Nitrogen 16 MG/DL (7-18) 19 MG/DL (7-18) Creatinine 0.79 MG/DL 0.91 MG/DL (0.50-1.00) (0.50-1.00) Estimat Glomerular Filtration 69 ML/MIN (>89) 58 ML/MIN (>89) Rate Random Glucose 150 MG/DL 160 MG/DL (74-106) (74-106) Calcium Level 8.7 MG/DL 8.5 MG/DL (8.5-10.1) (8.5-10.1) Magnesium Level 1.7 MG/DL (1.5-2.5) Total Bilirubin 0.6 MG/DL (0.2-1.0) Aspartate Amino Transf 27 U/L (15-37) (AST/SGOT) Alanine Aminotransferase 20 U/L (10-53) (ALT/SGPT) Alkaline Phosphatase 70 U/L (45-117) Total Creatine Kinase 324 U/L (26-192) Creatine Kinase MB 1.8 NG/ML (0.5-3.6) Creatine Kinase MB % 0.6 % (0.0-4.0) Troponin I 0.08 NG/ML (0.02-0.05) B-Type Natriuretic Peptide 188 PG/ML (0-100) Total Protein 7.4 GM/DL (6.4-8.2) Albumin 3.3 GM/DL (3.4-5.0) Lipase 107 U/L (73-393) Lactic Acid Level 2.1 mmol/L 3.0 mmol/L (0.4-2.0) (0.4-2.0) Nasal Screen MRSA (PCR) MRSA NOT DETECTED (NOT DETECT) Test 12/15/16 12/16/16 11:22 05:48 Phosphorus Level 3.2 MG/DL (2.5-4.9) White Blood Count 17.7 TH/MM3 (4.0-11.0) Red Blood Count 3.29 MIL/MM3 (4.00-5.30) Hemoglobin 10.8 GM/DL (11.6-15.3) Hematocrit 33.1 % (35.0-46.0) Mean Corpuscular Volume 100.7 FL (80.0-100.0) Mean Corpuscular Hemoglobin 32.9 PG (27.0-34.0) Mean Corpuscular Hemoglobin 32.6 % Concent (32.0-36.0) Red Cell Distribution Width 13.6 % (11.6-17.2) Platelet Count 141 TH/MM3 (150-450) Mean Platelet Volume 8.0 FL (7.0-11.0) Sodium Level 141 MEQ/L (136-145) Potassium Level 3.3 MEQ/L (3.5-5.1) Chloride Level 108 MEQ/L (98-107) Carbon Dioxide Level 24.0 MEQ/L (21.0-32.0) Anion Gap 9 MEQ/L (5-15) Blood Urea Nitrogen 18 MG/DL (7-18) Creatinine 0.63 MG/DL (0.50-1.00) Estimat Glomerular Filtration 89 ML/MIN (>89) Rate Random Glucose 98 MG/DL (74-106) Lactic Acid Level 1.5 mmol/L (0.4-2.0) Calcium Level 9.1 MG/DL (8.5-10.1) Result Diagram: 12/16/16 0548 12/16/1648 Microbiology Microbiology Date/Time Procedure Status Source Growth 12/14/16 23:20 Aerobic Blood Culture - Preliminary Resulted Blood Peripheral NO GROWTH IN 2 DAYS 12/14/16 23:20 Anaerobic Blood Culture - Preliminary Resulted Blood Peripheral NO GROWTH IN 2 DAYS 12/14/16 23:25 Aerobic Blood Culture - Preliminary Resulted Blood Peripheral NO GROWTH IN 2 DAYS 12/14/16 23:25 Anaerobic Blood Culture - Preliminary Resulted Blood Peripheral NO GROWTH IN 2 DAYS Imaging Last Impressions Pelvis X-Ray 12/14/162227 Signed Impressions: Service Date/Time: Wednesday, December 14, 2016 22:45 - CONCLUSION: The bony pelvic ring appears grossly intact. Diffuse osteopenia. Jareth Manrique MD Head CT 12/14/162227 Signed Impressions: Service Date/Time: Wednesday, December 14, 2016 23:05 - CONCLUSION: 1. Cerebral atrophy and chronic ischemic small vessel vasculopathy. 2. Old lacunar infarct left basal ganglia. 3. No acute hemorrhage or midline shift. Boo Ritchie MD Chest X-Ray 12/14/162227 Signed Impressions: Service Date/Time: Wednesday, December 14, 2016 22:43 - CONCLUSION: Lobar consolidation which is patchy and located in the right middle lobe. Mixed lucent and dense opacity in the left lower lung adjacent to the hemidiaphragm is nonspecific in appearance. Recommend further characterization with CT thorax with intravenous contrast. Jareth Manrique MD Cervical Spine CT 12/14/162227 Signed Impressions: Service Date/Time: Wednesday, December 14, 2016 23:05 - CONCLUSION: 1. Minimal anterolisthesis C4 on C5. 2. Advanced multilevel degenerative changes. 3. No fracture. 4. Multiple lucencies could be secondary to multiple myeloma. Boo Ritchie MD Patient/Family Conference Present at Family Conference: Son by telephone . Family Conference Time (mins): 40 Family Conference Location: Telephone Issues Discussed: * Palliative care role, purpose, approach * Additional medical, psychosocial, and spiritual history * Patients general health, functional status, and cognitive changes in the months leading up to the current hospitalization * Patient/family understanding of the current medical problems * Patient/family understanding of prognosis * Patients goals of care as best understood from advance directives and/or conversations and/or values * Current medical treatment options and benefits/burdens of those options * Likely scenarios comparing ongoing aggressive care with a transition to comfort measures only * Questions answered to the best of my ability * Palliative care contact information provided The patient's son is feeling somewhat conflicted; he knows that his mother had his father removed from life support allowing him to peacefully from his pulmonary fibrosis, and he does not think his mother would want to be maintained on life support if it was uncomfortable for her. He is going to review the language in the living will and call me later today with a decision about resuscitation status. . Assessment and Plan Disease Oriented Problem List: (1) respiratory failure, hypoxic (2) pneumonia (HCAP), bilateral (3) multiple lucencies on C-spine CT scan, R/O myeloma (4) CHF, mild, recurrent (5) atrial fibrillation, intermittent (6) dementia, probably end-stage (7) hypertension (8) spinal stenosis (9) hyperlipidemia (10) GERD (11) degenerative arthritis (12) CAD (13) history of CVA (14) hypothyroidism (15) resting tremor Symptom Scale: (1) dyspnea 0-10 Scale: Unable to quantify (2) pain 0-10 Scale: Unable to quantify Pertinent Non-Medical Issues Psychosocial: Retired, , long-term residential resident, 1 son. Spiritual: Scientology, visit from [facility] been requested Legal: The patient lacks capacity for decision-making, and because of her dementia and current illnesses will not regain that capacity. She had previously designated her only child/son as healthcare surrogate. Ethical issues impacting care: None . Important Contacts Son: Miguel Grimaldo Work ([employer]): [phone] . Prognosis This patient's prognosis is quite poor. She has apparent end-stage dementia, a history of recurrent UTI, and now bilateral pneumonia with hypoxic respiratory failure. She is profoundly weak and would be appropriate for hospice services if the goals become comfort oriented. (There is also the uncertainty that is added by seeing the multiple lucencies on C-spine CT exam.) . Code Status: Full Code Plan * Patient is currently FULL CODE, but son is reconsidering * DECISION-MAKING: The patient lacks capacity for decision-making, and because of her dementia and current illnesses will not regain that capacity. She had previously designated her only child/son Miguel Grimaldo as healthcare surrogate. * GOALS: The patient's son Miguel is feeling somewhat conflicted; he knows that his mother had his father removed from life support allowing him to peacefully from his pulmonary fibrosis, and he does not think his mother would want to be maintained on life support if it was uncomfortable for her. He is going to review the language in the living will and call me later today with a decision about resuscitation status. * She has multiple lucencies on C-spine CT scan, and, depending on what goals evolve and are verbalized by the son, this may need further workup also. * SYMPTOMS: The patient has been dyspneic, but that seems somewhat improved now on nasal cannula oxygen. It is difficult to know whether the patient has pain in his she cannot verbalize regarding symptoms. She is bedbound, and it is likely that there is some level of musculoskeletal discomfort. * Palliative Care will continue to follow this patient during this hospitalization. . Time Spent Total Floor Time (mins): 80 Face to Face Time (mins): 14 >50% Counseling/Coord of Care: Yes (d/w RN) Thank you for the opportunity to participate in the care of Ms. Grimaldo. Attestation To help prompt me to consider important information that might be impacting today's encounter and assessment, information from prior notes written by myself or my colleagues may have been "brought forward" into today's note. My signature on this note, however, is an attestation that I personally performed the exam, history, and/or decision-making noted today, and, unless otherwise indicated, the interactions with patient, family, and staff as well as the review of records all occurred today. I also attest that the listed assessment and stated plan reflect my best clinical judgment today based on the combination of historical information, prior notes, and today's exam/ interactions. When time spent is documented, it refers only to time spent today by the signer, or if indicated, combined time spent today by collaborating physician/nurse practitioner. Becky Ruano MD Dec 16, 2016 12:31
--- NOTE | 2016-12-16 15:00 | HHI.HCPN ---
Son Miguel called me at 1450 hours: he found her living will and now requests DNR status. Becky Moss MD Dec 16, 2016 15:00
--- NOTE | 2016-12-16 18:22 | HHI.PR ---
Subjective Remarks 86 YOWF with resp insuff, Pn ,CHF, Dementia Pt obtunded On OR Palliative care consulted Objective Vital Signs Vital Signs Date Time Temp Pulse Resp B/P Pulse Ox O2 Delivery O2 Flow Rate FiO2 12/16/16 18:00 69 33 165/72 90 12/16/16 18:00 69 12/16/16 17:48 167 12/16/16 17:48 167 28 177/76 93 12/16/16 17:01 116 12/16/16 17:01 116 35 184/78 92 12/16/16 16:00 69 22 148/73 12/16/16 16:00 69 12/16/16 16:00 69 12/16/16 16:00 69 22 148/73 12/16/16 16:00 69 22 148/73 12/16/16 15:00 69 23 153/67 96 12/16/16 15:00 69 23 153/67 96 12/16/16 15:00 69 12/16/16 15:00 69 12/16/16 15:00 69 23 153/67 96 12/16/16 14:00 69 12/16/16 14:00 69 31 156/69 96 12/16/16 14:00 69 31 156/69 96 12/16/16 14:00 69 12/16/16 14:00 69 31 156/69 96 12/16/16 14:00 69 12/16/16 13:00 69 20 166/67 97 12/16/16 13:00 69 20 166/67 97 12/16/16 13:00 69 12/16/16 13:00 69 12/16/16 13:00 69 12/16/16 13:00 69 12/16/16 13:00 69 20 166/67 97 12/16/16 12:08 69 12/16/16 12:08 69 12/16/16 12:08 69 12/16/16 12:08 69 22 146/65 96 12/16/16 12:08 69 22 146/65 96 12/16/16 12:08 69 12/16/16 12:08 69 22 146/65 96 12/16/16 12:01 116 12/16/16 12:01 116 18 144/112 97 12/16/16 12:01 116 18 144/112 97 12/16/16 12:01 116 12/16/16 12:01 116 12/16/16 12:01 116 18 144/112 97 12/16/16 12:01 116 18 144/112 97 12/16/16 12:01 116 12/16/16 12:00 70 12/16/16 12:00 70 20 97 12/16/16 12:00 70 12/16/16 12:00 70 20 97 12/16/16 12:00 70 20 97 12/16/16 12:00 70 20 97 12/16/16 12:00 70 12/16/16 12:00 70 12/16/16 11:00 69 19 120/55 98 12/16/16 11:00 69 19 120/55 98 12/16/16 11:00 69 12/16/16 11:00 69 12/16/16 11:00 69 19 120/55 98 12/16/16 11:00 69 12/16/16 11:00 69 19 120/55 98 12/16/16 11:00 69 12/16/16 10:00 69 12/16/16 10:00 69 18 132/62 97 12/16/16 10:00 69 12/16/16 10:00 69 18 132/62 97 12/16/16 10:00 69 18 132/62 97 12/16/16 10:00 69 12/16/16 10:00 69 12/16/16 10:00 69 18 132/62 97 12/16/16 09:49 160 12/16/16 09:49 160 17 109/72 96 12/16/16 09:49 160 17 109/72 96 12/16/16 09:49 160 12/16/16 09:49 160 17 109/72 96 12/16/16 09:49 160 12/16/16 09:49 160 17 109/72 96 12/16/16 09:49 160 12/16/16 09:01 69 12/16/16 09:01 69 17 159/69 95 12/16/16 09:01 69 17 159/69 95 12/16/16 09:01 69 17 159/69 95 12/16/16 09:01 69 12/16/16 09:01 69 12/16/16 09:01 69 12/16/16 09:01 69 17 159/69 95 12/16/16 08:36 69 24 125/69 97 12/16/16 08:36 69 12/16/16 08:36 69 24 125/69 97 12/16/16 08:36 69 24 125/69 97 12/16/16 08:36 69 24 125/69 97 12/16/16 08:36 69 12/16/16 08:36 69 12/16/16 08:36 69 12/16/16 08:01 99 Nasal Cannula 9.00 12/16/16 08:00 69 17 163/95 99 12/16/16 08:00 69 17 163/95 99 12/16/16 08:00 69 12/16/16 08:00 69 12/16/16 08:00 69 12/16/16 08:00 69 12/16/16 08:00 69 17 163/95 99 12/16/16 08:00 69 17 163/95 99 12/16/16 06:00 69 12/16/16 04:00 98.9 69 18 145/82 100 12/16/16 04:00 69 12/16/16 02:00 72 12/16/16 00:00 70 12/16/16 00:00 99.2 70 16 123/60 98 12/15/16 22:00 69 12/15/16 20:00 98.3 69 18 124/60 97 12/15/16 20:00 69 12/15/16 19:32 96 Nasal Cannula 3.00 I/O 12/15/16 12/15/16 12/15/16 12/16/16 12/16/16 12/16/16 07:00 15:00 23:00 07:00 15:00 23:00 Intake Total 150 ml 444 ml 337 ml 435 ml 809 ml Output Total 1800 ml 350 ml 300 ml 1850 ml Balance 150 ml -1356 ml -13 ml 135 ml -1041 ml Intake Oral 0 ml 0 ml 0 ml 280 ml IV Total 150 ml 444 ml 337 ml 435 ml 529 ml Output Urine Total 1800 ml 350 ml 300 ml 1850 ml # Voids 3 # Bowel Movements 0 0 0 Result Diagram: 12/16/16 0548 12/16/16 0548 Objective Remarks GENERAL: Elderly female, mild sob SKIN: Warm and dry. HEAD: Normocephalic. EYES: No scleral icterus. No injection or drainage. NECK: Supple, trachea midline. No JVD or lymphadenopathy. CARDIOVASCULAR: Regular rate and rhythm without murmurs, gallops, or rubs. RESPIRATORY: Breath sounds equal bilaterally. No accessory muscle use. Scattered rales GASTROINTESTINAL: Abdomen soft, non-tender, nondistended. MUSCULOSKELETAL: No cyanosis, or edema. BACK: Nontender without obvious deformity. No CVA tenderness. A/P Assessment and Plan Pneumonia CHF resp Insuff DM DNR PLAN: Cont Abx Gentle diurease monitor Lytes Supplement 02 Palliative care consulted. John Johnson MD Dec 16, 2016 18:22
--- NOTE | 2016-12-16 19:14 | HHI.PR ---
Subjective Interval History Awake, she does say some words, appropriate at times, looking improved relatively Review of Systems Constitutional Constitutional Remarks Difficult to obtain Vitals/Results Intake & Output 12/15/16 12/15/16 12/16/16 15:00 23:00 07:00 Intake Total 444 ml 337 ml 435 ml Output Total 1800 ml 350 ml 300 ml Balance -1356 ml -13 ml 135 ml Intake Oral 0 ml 0 ml IV Total 444 ml 337 ml 435 ml Output Urine Total 1800 ml 350 ml 300 ml # Bowel Movements 0 0 Vital Signs Vital Signs Date Time Temp Pulse Resp B/P Pulse Ox O2 Delivery O2 Flow Rate FiO2 12/16/16 18:00 69 33 165/72 90 12/16/16 18:00 69 12/16/16 17:48 167 12/16/16 17:48 167 28 177/76 93 12/16/16 17:01 116 12/16/16 17:01 116 35 184/78 92 12/16/16 16:00 69 22 148/73 12/16/16 16:00 69 12/16/16 16:00 69 12/16/16 16:00 69 22 148/73 12/16/16 16:00 69 22 148/73 12/16/16 15:00 69 23 153/67 96 12/16/16 15:00 69 23 153/67 96 12/16/16 15:00 69 12/16/16 15:00 69 12/16/16 15:00 69 23 153/67 96 12/16/16 14:00 69 12/16/16 14:00 69 31 156/69 96 12/16/16 14:00 69 31 156/69 96 12/16/16 14:00 69 12/16/16 14:00 69 31 156/69 96 12/16/16 14:00 69 12/16/16 13:00 69 20 166/67 97 12/16/16 13:00 69 20 166/67 97 12/16/16 13:00 69 12/16/16 13:00 69 12/16/16 13:00 69 12/16/16 13:00 69 12/16/16 13:00 69 20 166/67 97 12/16/16 12:08 69 12/16/16 12:08 69 12/16/16 12:08 69 12/16/16 12:08 69 22 146/65 96 12/16/16 12:08 69 22 146/65 96 12/16/16 12:08 69 12/16/16 12:08 69 22 146/65 96 12/16/16 12:01 116 12/16/16 12:01 116 18 144/112 97 12/16/16 12:01 116 18 144/112 97 12/16/16 12:01 116 12/16/16 12:01 116 12/16/16 12:01 116 18 144/112 97 12/16/16 12:01 116 18 144/112 97 12/16/16 12:01 116 12/16/16 12:00 70 12/16/16 12:00 70 20 97 12/16/16 12:00 70 12/16/16 12:00 70 20 97 12/16/16 12:00 70 20 97 12/16/16 12:00 70 20 97 12/16/16 12:00 70 12/16/16 12:00 70 12/16/16 11:00 69 19 120/55 98 12/16/16 11:00 69 19 120/55 98 12/16/16 11:00 69 12/16/16 11:00 69 12/16/16 11:00 69 19 120/55 98 12/16/16 11:00 69 12/16/16 11:00 69 19 120/55 98 12/16/16 11:00 69 12/16/16 10:00 69 12/16/16 10:00 69 18 132/62 97 12/16/16 10:00 69 12/16/16 10:00 69 18 132/62 97 12/16/16 10:00 69 18 132/62 97 12/16/16 10:00 69 12/16/16 10:00 69 12/16/16 10:00 69 18 132/62 97 12/16/16 09:49 160 12/16/16 09:49 160 17 109/72 96 12/16/16 09:49 160 17 109/72 96 12/16/16 09:49 160 12/16/16 09:49 160 17 109/72 96 12/16/16 09:49 160 12/16/16 09:49 160 17 109/72 96 12/16/16 09:49 160 12/16/16 09:01 69 12/16/16 09:01 69 17 159/69 95 12/16/16 09:01 69 17 159/69 95 12/16/16 09:01 69 17 159/69 95 12/16/16 09:01 69 12/16/16 09:01 69 12/16/16 09:01 69 12/16/16 09:01 69 17 159/69 95 12/16/16 08:36 69 24 125/69 97 12/16/16 08:36 69 12/16/16 08:36 69 24 125/69 97 12/16/16 08:36 69 24 125/69 97 12/16/16 08:36 69 24 125/69 97 12/16/16 08:36 69 12/16/16 08:36 69 12/16/16 08:36 69 12/16/16 08:01 99 Nasal Cannula 9.00 12/16/16 08:00 69 17 163/95 99 12/16/16 08:00 69 17 163/95 99 12/16/16 08:00 69 12/16/16 08:00 69 12/16/16 08:00 69 12/16/16 08:00 69 12/16/16 08:00 69 17 163/95 99 12/16/16 08:00 69 17 163/95 99 12/16/16 06:00 69 12/16/16 04:00 98.9 69 18 145/82 100 12/16/16 04:00 69 12/16/16 02:00 72 12/16/16 00:00 70 12/16/16 00:00 99.2 70 16 123/60 98 12/15/16 22:00 69 12/15/16 20:00 98.3 69 18 124/60 97 12/15/16 20:00 69 12/15/16 19:32 96 Nasal Cannula 3.00 CBC/BMP: 12/16/16 0548 12/16/16 0548 Lab Results Laboratory Tests Test 12/16/16 05:48 White Blood Count 17.7 TH/MM3 Red Blood Count 3.29 MIL/MM3 Hemoglobin 10.8 GM/DL Hematocrit 33.1 % Mean Corpuscular Volume 100.7 FL Mean Corpuscular Hemoglobin 32.9 PG Mean Corpuscular Hemoglobin 32.6 % Concent Red Cell Distribution Width 13.6 % Platelet Count 141 TH/MM3 Mean Platelet Volume 8.0 FL Sodium Level 141 MEQ/L Potassium Level 3.3 MEQ/L Chloride Level 108 MEQ/L Carbon Dioxide Level 24.0 MEQ/L Anion Gap 9 MEQ/L Blood Urea Nitrogen 18 MG/DL Creatinine 0.63 MG/DL Estimat Glomerular Filtration 89 ML/MIN Rate Random Glucose 98 MG/DL Lactic Acid Level 1.5 mmol/L Calcium Level 9.1 MG/DL Physical Exam General General Appearance: Well Nourished, Comfortable Eyes Eye Exam: Pupils Reactive Ears & Nose Ears & Nose Exam: Nasal Mucosa [place] Throat Throat Exam: Oral Mucosa [place] & Moist Neck Neck Exam: Trachea Midline Pulmonary Resp Exam: Crackles, Rhonchi Cardiology CV Exam: Normal Sinus Rhythm, Good Perfusion Gastrointestinal/Abdomen GI Exam: Non-Tender, Bowel Sounds Present Musculoskeletal MS Exam: Normal Tone Integumentary Skin Exam: Warm, Dry Neurologic Neuro Exam: Awake, Moving All Extremities Psychiatric Psych Exam: Appropriate Responses Assessment/Plan Assessment/Plan Assessment Sepsis on admission Pneumonia Hypoxemia Hypokalemia Metabolic encephalopathy, improved Atrial fibrillation Heart failure Leukocytosis Diabetes Management Continue antibiotics Cautious hydration Replace potassium Palliative care consultation DNR Follow cultures Swallow evaluation Follow electrolytes and replace as needed Follow renal function Resume Xarelto Further plan depends on family preferences Comfort care versus active management Discussed with patient, she is confused but responsive, occasionally verbal Discussed with nurse Norma Berkowitz MD Dec 16, 2016 19:14
[2016-12-16] MEDS: OXYBUTYNIN CHLORIDE 5 MG TAB PO SCH (20:06)
[2016-12-16] MEDS: MIRTAZAPINE 15 MG TAB PO SCH (20:06)
[2016-12-17] VITALS (29 sets, daily range): BP systolic 133–164; BP diastolic 57–84; PULSE 68–82; RESP 18–22; TEMP 98.2–99.5; O2SAT 92–95
[2016-12-17] MEDS: CHLORHEXIDINE GLUCONATE 2 % 1 PACK (2 CLOTHS)(taper/protocol) TOPICAL SCH (03:52)
[2016-12-17] MEDS: LEVOTHYROXINE SODIUM 75 MCG TAB PO SCH (05:25)
[2016-12-17] MEDS: INSULIN ASPART SUPPLEMENTAL SCALE SQ SCH ×4 (06:13→20:35)
[2016-12-17] MEDS: SODIUM CHLOR 0.9% 1000 ML INJ 1,000 ML IV SCH (08:14)
[2016-12-17] MEDS: CEFEPIME 1000 MG/NS 100 ML IV SCH ×4 (08:15→20:11)
[2016-12-17] MEDS: VANCOMYCIN 1,000 MG/NS 250 ML IV SCH ×4 (08:28→20:12)
[2016-12-17] MEDS: PRAVASTATIN SOD 20 MG TAB PO SCH (08:28)
[2016-12-17] MEDS: PANTOPRAZOLE SOD 40 MG DELAYED RELEASE TAB PO SCH (08:28)
[2016-12-17] MEDS: PARoxetine HCL 20 MG TAB PO SCH (08:29)
[2016-12-17] MEDS: FUROSEMIDE 20 MG/2 ML VIAL IV PUSH SCH ×2 (08:29→18:00)
[2016-12-17] MEDS: ACETAMINOPHEN/HYDROcodone 325 MG/10 MG TAB PO PRN (08:29)
[2016-12-17] MEDS: POTASSIUM CHLORIDE 10 MEQ CAP PO SCH ×2 (08:29→20:12)
[2016-12-17] MEDS: RIVAROXABAN 20 MG TAB PO SCH (08:30)
[2016-12-17] MEDS: RESP: ALBUTEROL 2.5 MG/IPRATROPIUM 0.5 MG NEB (SCH) NEB ×4 (09:00→21:04)
[2016-12-17] MEDS: risperiDONE 1 MG TAB PO SCH (10:21)
--- NOTE | 2016-12-17 14:51 | HHI.HCPN ---
Reason for visit a. To assist with evaluation and management of symptoms including: dyspnea , encephalopathy b. To assist medical decision maker(s) with: better understanding of current medical conditions; weighing benefits/burdens of medical treatment options; making medical treatment decisions. . Subjective/Interval History INTERVAL NOTE: The patient looks about the same to me. She will briefly awaken but is lethargic, and she mumbles a couple words. She does not appear dyspneic at this time, and does not appear to be in pain. She remains afebrile now. . Family/friend interactions I left an update message on her son's phone . Advance Directives Living Will: Copy in medical record Health Care Surrogate: Copy in medical record Durable Power of Cattle Sorter: Copy in medical record Advance Directive Specifics Health Care Surrogate(s): Son, Miguel Grimaldo . Documented care wishes: The patient has a living will, with typical requests regarding no artificial prolongation of the dying process when she has an end-stage or terminal condition. . Objective Vital Signs Date Time Temp Pulse Resp B/P Pulse Ox O2 Delivery O2 Flow Rate FiO2 12/17/16 14:00 69 12/17/16 13:00 82 12/17/16 12:00 69 12/17/16 11:00 98.6 69 20 133/57 92 12/17/16 11:00 69 12/17/16 10:00 71 12/17/16 09:02 93 21 12/17/16 09:00 69 12/17/16 08:00 70 12/17/16 07:00 69 12/17/16 07:00 98.4 69 22 164/82 94 12/17/16 06:06 69 12/17/16 05:06 70 12/17/16 04:48 99.5 70 150/82 95 12/17/16 04:48 69 12/17/16 03:00 69 12/17/16 02:00 68 12/17/16 01:00 68 12/17/16 00:31 99.5 70 150/82 95 12/17/16 00:00 68 12/16/16 23:00 72 12/16/16 22:00 68 12/16/16 21:00 68 12/16/16 20:25 96 21 12/16/16 20:00 99.5 70 164/69 93 12/16/16 20:00 68 12/16/16 19:00 69 12/16/16 18:00 69 33 165/72 90 12/16/16 18:00 69 12/16/16 17:48 167 12/16/16 17:48 167 28 177/76 93 12/16/16 17:01 116 12/16/16 17:01 116 35 184/78 92 12/16/16 16:00 69 22 148/73 12/16/16 16:00 69 12/16/16 16:00 69 12/16/16 16:00 69 22 148/73 12/16/16 16:00 69 22 148/73 12/16/16 15:00 69 23 153/67 96 12/16/16 15:00 69 23 153/67 96 12/16/16 15:00 69 12/16/16 15:00 69 12/16/16 15:00 69 23 153/67 96 Intake & Output 12/17/16 12/17/16 07:00 19:00 Intake Total 480 ml Output Total 1200 ml Balance -720 ml Intake Oral 480 ml Output Urine Total 1200 ml Physical Exam CONSTITUTIONAL/GENERAL: This is an elderly, weak patient, in no apparent distress. NECK: Trachea midline. Supple, nontender. No palpable thyroid enlargement or nodularity. CARDIOVASCULAR: Regular rate and rhythm without murmurs, gallops, or rubs. No JVD. Peripheral pulses symmetric. RESPIRATORY/CHEST: Symmetric, unlabored respirations. Scattered rhonchi bilateral GASTROINTESTINAL: Abdomen soft, non-tender, nondistended. No hepato-splenomegaly , or palpable masses. No guarding. Bowel sounds present. GENITOURINARY: Without palpable bladder distension. MUSCULOSKELETAL: Extremities without clubbing, cyanosis, or edema. No joint tenderness or effusion noted. No calf tenderness. No mottling or clubbing. NEUROLOGICAL: Lethargic, mumbles a few words, does not answer questions, but does follow some simple commands.. PSYCHIATRIC: no apparent hallucinations or other psychotic thought process. . Diagnostic Tests Laboratory Laboratory Tests Test 12/14/16 12/14/16 12/15/16 12/15/16 22:35 23:57 02:00 03:22 Prothrombin Time 12.9 SEC (9.8-11.6) Prothromb Time International 1.2 RATIO Ratio Activated Partial 31.0 SEC Thromboplast Time (24.3-30.1) Sodium Level 138 MEQ/L 139 MEQ/L (136-145) (136-145) Potassium Level 3.5 MEQ/L 3.5 MEQ/L (3.5-5.1) (3.5-5.1) Chloride Level 106 MEQ/L 105 MEQ/L (98-107) (98-107) Carbon Dioxide Level 24.3 MEQ/L 22.4 MEQ/L (21.0-32.0) (21.0-32.0) Anion Gap 8 MEQ/L (5-15) 12 MEQ/L (5-15) Blood Urea Nitrogen 16 MG/DL (7-18) 19 MG/DL (7-18) Creatinine 0.79 MG/DL 0.91 MG/DL (0.50-1.00) (0.50-1.00) Estimat Glomerular Filtration 69 ML/MIN (>89) 58 ML/MIN (>89) Rate Random Glucose 150 MG/DL 160 MG/DL (74-106) (74-106) Calcium Level 8.7 MG/DL 8.5 MG/DL (8.5-10.1) (8.5-10.1) Magnesium Level 1.7 MG/DL (1.5-2.5) Total Bilirubin 0.6 MG/DL (0.2-1.0) Aspartate Amino Transf 27 U/L (15-37) (AST/SGOT) Alanine Aminotransferase 20 U/L (10-53) (ALT/SGPT) Alkaline Phosphatase 70 U/L (45-117) Total Creatine Kinase 324 U/L (26-192) Creatine Kinase MB 1.8 NG/ML (0.5-3.6) Creatine Kinase MB % 0.6 % (0.0-4.0) Troponin I 0.08 NG/ML (0.02-0.05) B-Type Natriuretic Peptide 188 PG/ML (0-100) Total Protein 7.4 GM/DL (6.4-8.2) Albumin 3.3 GM/DL (3.4-5.0) Lipase 107 U/L (73-393) White Blood Count 13.8 TH/MM3 18.4 TH/MM3 (4.0-11.0) (4.0-11.0) Red Blood Count 3.51 MIL/MM3 3.43 MIL/MM3 (4.00-5.30) (4.00-5.30) Hemoglobin 12.1 GM/DL 11.6 GM/DL (11.6-15.3) (11.6-15.3) Hematocrit 34.9 % 34.5 % (35.0-46.0) (35.0-46.0) Mean Corpuscular Volume 99.3 FL 100.5 FL (80.0-100.0) (80.0-100.0) Mean Corpuscular Hemoglobin 34.4 PG 33.8 PG (27.0-34.0) (27.0-34.0) Mean Corpuscular Hemoglobin 34.7 % 33.7 % Concent (32.0-36.0) (32.0-36.0) Red Cell Distribution Width 13.6 % 13.4 % (11.6-17.2) (11.6-17.2) Platelet Count 154 TH/MM3 136 TH/MM3 (150-450) (150-450) Mean Platelet Volume 8.1 FL 8.2 FL (7.0-11.0) (7.0-11.0) Neutrophils (%) (Auto) 92.8 % 93.0 % (16.0-70.0) (16.0-70.0) Lymphocytes (%) (Auto) 3.5 % 2.4 % (9.0-44.0) (9.0-44.0) Monocytes (%) (Auto) 3.3 % (0.0-8.0) 4.4 % (0.0-8.0) Eosinophils (%) (Auto) 0.1 % (0.0-4.0) 0.0 % (0.0-4.0) Basophils (%) (Auto) 0.3 % (0.0-2.0) 0.2 % (0.0-2.0) Neutrophils # (Auto) 12.8 TH/MM3 17.1 TH/MM3 (1.8-7.7) (1.8-7.7) Lymphocytes # (Auto) 0.5 TH/MM3 0.5 TH/MM3 (1.0-4.8) (1.0-4.8) Monocytes # (Auto) 0.5 TH/MM3 0.8 TH/MM3 (0-0.9) (0-0.9) Eosinophils # (Auto) 0.0 TH/MM3 0.0 TH/MM3 (0-0.4) (0-0.4) Basophils # (Auto) 0.0 TH/MM3 0.0 TH/MM3 (0-0.2) (0-0.2) CBC Comment DIFF FINAL DIFF FINAL Differential Comment Lactic Acid Level 2.1 mmol/L 3.0 mmol/L (0.4-2.0) (0.4-2.0) Nasal Screen MRSA (PCR) MRSA NOT DETECTED (NOT DETECT) Test 12/15/16 12/16/16 11:22 05:48 Phosphorus Level 3.2 MG/DL (2.5-4.9) White Blood Count 17.7 TH/MM3 (4.0-11.0) Red Blood Count 3.29 MIL/MM3 (4.00-5.30) Hemoglobin 10.8 GM/DL (11.6-15.3) Hematocrit 33.1 % (35.0-46.0) Mean Corpuscular Volume 100.7 FL (80.0-100.0) Mean Corpuscular Hemoglobin 32.9 PG (27.0-34.0) Mean Corpuscular Hemoglobin 32.6 % Concent (32.0-36.0) Red Cell Distribution Width 13.6 % (11.6-17.2) Platelet Count 141 TH/MM3 (150-450) Mean Platelet Volume 8.0 FL (7.0-11.0) Sodium Level 141 MEQ/L (136-145) Potassium Level 3.3 MEQ/L (3.5-5.1) Chloride Level 108 MEQ/L (98-107) Carbon Dioxide Level 24.0 MEQ/L (21.0-32.0) Anion Gap 9 MEQ/L (5-15) Blood Urea Nitrogen 18 MG/DL (7-18) Creatinine 0.63 MG/DL (0.50-1.00) Estimat Glomerular Filtration 89 ML/MIN (>89) Rate Random Glucose 98 MG/DL (74-106) Lactic Acid Level 1.5 mmol/L (0.4-2.0) Calcium Level 9.1 MG/DL (8.5-10.1) Result Diagram: 12/16/16 0548 12/16/16 0548 Microbiology Microbiology Date/Time Procedure Status Source Growth 12/14/16 23:20 Aerobic Blood Culture - Preliminary Resulted Blood Peripheral NO GROWTH IN 3 DAYS 12/14/16 23:20 Anaerobic Blood Culture - Preliminary Resulted Blood Peripheral NO GROWTH IN 3 DAYS 12/14/16 23:25 Aerobic Blood Culture - Preliminary Resulted Blood Peripheral NO GROWTH IN 3 DAYS 12/14/16 23:25 Anaerobic Blood Culture - Preliminary Resulted Blood Peripheral NO GROWTH IN 3 DAYS Assessment and Plan Disease Oriented Problem List: (1) respiratory failure, hypoxic (2) pneumonia (HCAP), bilateral (3) multiple lucencies on C-spine CT scan, R/O myeloma (4) CHF, mild, recurrent (5) atrial fibrillation, intermittent (6) dementia, 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 Spiritual: [employer]ah[employer]ism, visit from [facility] has been requested Legal: The patient lacks capacity for decision-making, and because of her dementia and current illnesses will not regain that capacity. She had previously designated her only child/son as healthcare surrogate. Ethical issues impacting care: None . Important Contacts Son: Miguel Grimaldo Work ([employer]): [phone] . Prognosis This patient's prognosis is quite poor. She has apparent end-stage dementia, a history of recurrent UTI, and now bilateral pneumonia with hypoxic respiratory failure. She is profoundly weak and would be appropriate for hospice services if the goals become comfort oriented. (There is also the uncertainty that is added by seeing the multiple lucencies on C-spine CT exam.) . Code Status: Full Code Plan * DO NOT RESUSCITATE, per patient's son late on 12/16/16 * DECISION-MAKING: The patient lacks capacity for decision-making, and because of her dementia and current illnesses will not regain that capacity. She had previously designated her only child/son Miguel Grimaldo as healthcare surrogate. * GOALS: The patient's son Miguel did elect to honor her previously expressed wishes in the living will, making her DNR yesterday. He wants the antibiotics and treatments continued, hoping that she will be able to [facility] to her [facility]. * She has multiple lucencies on C-spine CT scan, and, depending on what goals evolve and are verbalized by the son, this may need further workup also. * SYMPTOMS: The patient is no longer dyspneic on her nasal cannula oxygen. It is difficult to know whether the patient has pain in his she cannot verbalize regarding symptoms. She is bedbound, and it is likely that there is some level of musculoskeletal discomfort. * Palliative Care will continue to follow this patient during this hospitalization. . Time Spent Total Floor Time (mins): 27 Face to Face Time (mins): 9 >50% Counseling/Coord of Care: Yes Attestation To help prompt me to consider important information that might be impacting today's encounter and assessment, information from prior notes written by myself or my colleagues may have been "brought forward" into today's note. My signature on this note, however, is an attestation that I personally performed the exam, history, and/or decision-making noted today, and, unless otherwise indicated, the interactions with patient, family, and staff as well as the review of records all occurred today. I also attest that the listed assessment and stated plan reflect my best clinical judgment today based on the combination of historical information, prior notes, and today's exam/ interactions. When time spent is documented, it refers only to time spent today by the signer, or if indicated, combined time spent today by collaborating physician/nurse practitioner. Becky Ruano MD Dec 17, 2016 14:51
--- NOTE | 2016-12-17 17:29 | HHI.PR ---
Subjective Interval History Sleepy, arousable, no visible distress, has been verbal earlier today, was complaining of pain from her rheumatoid, given some analgesics and settled down afterwards, Review of Systems Constitutional Constitutional Remarks Difficult to obtain Vitals/Results Intake & Output 12/16/16 12/16/16 12/17/16 15:00 23:00 07:00 Intake Total 809 ml 480 ml Output Total 1850 ml 850 ml 1200 ml Balance -1041 ml -850 ml -720 ml Intake Oral 280 ml 480 ml IV Total 529 ml Output Urine Total 1850 ml 850 ml 1200 ml Vital Signs Vital Signs Date Time Temp Pulse Resp B/P Pulse Ox O2 Delivery O2 Flow Rate FiO2 12/17/16 17:00 69 12/17/16 16:00 69 12/17/16 15:00 69 12/17/16 15:00 98.2 69 18 157/75 93 12/17/16 14:00 69 12/17/16 13:00 82 12/17/16 12:00 69 12/17/16 11:00 98.6 69 20 133/57 92 12/17/16 11:00 69 12/17/16 10:00 71 12/17/16 09:02 93 21 12/17/16 09:00 69 12/17/16 08:00 70 12/17/16 07:00 69 12/17/16 07:00 98.4 69 22 164/82 94 12/17/16 06:06 69 12/17/16 05:06 70 12/17/16 04:48 99.5 70 150/82 95 12/17/16 04:48 69 12/17/16 03:00 69 12/17/16 02:00 68 12/17/16 01:00 68 12/17/16 00:31 99.5 70 150/82 95 12/17/16 00:00 68 12/16/16 23:00 72 12/16/16 22:00 68 12/16/16 21:00 68 12/16/16 20:25 96 21 12/16/16 20:00 99.5 70 164/69 93 12/16/16 20:00 68 12/16/16 19:00 69 12/16/16 18:00 69 33 165/72 90 12/16/16 18:00 69 12/16/16 17:48 167 12/16/16 17:48 167 28 177/76 93 CBC/BMP: 12/16/16 0548 12/16/16 0548 Physical Exam General General Appearance: Well Nourished, Comfortable Eyes Eye Exam: Pupils Reactive Ears & Nose Ears & Nose Exam: Nasal Mucosa [place] Throat Throat Exam: Oral Mucosa [place] & Moist Neck Neck Exam: Trachea Midline Pulmonary Resp Exam: Crackles, Rhonchi Cardiology CV Exam: Normal Sinus Rhythm, Good Perfusion Gastrointestinal/Abdomen GI Exam: Non-Tender, Bowel Sounds Present Musculoskeletal MS Exam: Normal Tone Integumentary Skin Exam: Warm, Dry Neurologic Neuro Exam: Awake, Moving All Extremities Psychiatric Psych Exam: Appropriate Responses Assessment/Plan Assessment/Plan Assessment Sepsis on admission, much improved Pneumonia Hypoxemia Hypokalemia Metabolic encephalopathy, improved Atrial fibrillation Heart failure Leukocytosis Diabetes Management Continue antibiotics Cautious hydration Replace potassium Palliative care consultation DNR Follow cultures Follow electrolytes and replace as needed Follow renal function Resume Xarelto Further plan depends on family preferences Comfort care versus active management Possible [facility] to jail in the next 1-2 days Discussed with nurse Norma Muro MD Dec 17, 2016 17:29
--- NOTE | 2016-12-17 18:39 | HHI.PR ---
Subjective Remarks 86 YOWF with resp insuff, Pn ,CHF, Dementia More awake, still confused On NC Objective Vital Signs Vital Signs Date Time Temp Pulse Resp B/P Pulse Ox O2 Delivery O2 Flow Rate FiO2 12/17/16 18:00 69 12/17/16 17:00 69 12/17/16 16:00 69 12/17/16 15:00 69 12/17/16 15:00 98.2 69 18 157/75 93 12/17/16 14:00 69 12/17/16 13:00 82 12/17/16 12:00 69 12/17/16 11:00 98.6 69 20 133/57 92 12/17/16 11:00 69 12/17/16 10:00 71 12/17/16 09:02 93 21 12/17/16 09:00 69 12/17/16 08:00 70 12/17/16 07:00 69 12/17/16 07:00 98.4 69 22 164/82 94 12/17/16 06:06 69 12/17/16 05:06 70 12/17/16 04:48 99.5 70 150/82 95 12/17/16 04:48 69 12/17/16 03:00 69 12/17/16 02:00 68 12/17/16 01:00 68 12/17/16 00:31 99.5 70 150/82 95 12/17/16 00:00 68 12/16/16 23:00 72 12/16/16 22:00 68 12/16/16 21:00 68 12/16/16 20:25 96 21 12/16/16 20:00 99.5 70 164/69 93 12/16/16 20:00 68 12/16/16 19:00 69 I/O 12/16/16 12/16/16 12/16/16 12/17/16 12/17/16 12/17/16 07:00 15:00 23:00 07:00 15:00 23:00 Intake Total 435 ml 809 ml 480 ml 1659 ml Output Total 300 ml 1850 ml 850 ml 1200 ml 1025 ml Balance 135 ml -1041 ml -850 ml -720 ml 634 ml Intake Oral 0 ml 280 ml 480 ml 340 ml IV Total 435 ml 529 ml 1319 ml Output Urine Total 300 ml 1850 ml 850 ml 1200 ml 1025 ml # Bowel Movements 0 Result Diagram: 12/16/1648 12/16/1648 Objective Remarks GENERAL: Elderly female, mild sob SKIN: Warm and dry. HEAD: Normocephalic. EYES: No scleral icterus. No injection or drainage. NECK: Supple, trachea midline. No JVD or lymphadenopathy. CARDIOVASCULAR: Regular rate and rhythm without murmurs, gallops, or rubs. RESPIRATORY: Breath sounds equal bilaterally. No accessory muscle use. Scattered rales GASTROINTESTINAL: Abdomen soft, non-tender, nondistended. MUSCULOSKELETAL: No cyanosis, or edema. BACK: Nontender without obvious deformity. No CVA tenderness. A/P Assessment and Plan Pneumonia CHF resp Insuff DM DNR PLAN: Cont Abx Gentle diurease monitor Lytes Supplement 02 Palliative care consulted. DC Plans underway. John Johnson MD Dec 17, 2016 18:39
[2016-12-17] MEDS: MIRTAZAPINE 15 MG TAB PO SCH (20:12)
[2016-12-17] MEDS: OXYBUTYNIN CHLORIDE 5 MG TAB PO SCH (20:12)
[2016-12-18] VITALS (27 sets, daily range): BP systolic 125–156; BP diastolic 58–86; PULSE 65–79; RESP 16–18; TEMP 98.2–98.7; O2SAT 91–96
[2016-12-18] MEDS: ACETAMINOPHEN/HYDROcodone 325 MG/10 MG TAB PO PRN (02:02)
[2016-12-18] MEDS: CHLORHEXIDINE GLUCONATE 2 % 1 PACK (2 CLOTHS)(taper/protocol) TOPICAL SCH (04:00)
[2016-12-18] MEDS: LEVOTHYROXINE SODIUM 75 MCG TAB PO SCH (05:58)
[2016-12-18] MEDS: INSULIN ASPART SUPPLEMENTAL SCALE SQ SCH ×4 (06:09→21:00)
[2016-12-18] MEDS: RESP: ALBUTEROL 2.5 MG/IPRATROPIUM 0.5 MG NEB (SCH) NEB ×4 (07:35→20:12)
[2016-12-18] MEDS: CEFEPIME 1000 MG/NS 100 ML IV SCH ×4 (09:54→22:08)
[2016-12-18] MEDS: VANCOMYCIN 1,000 MG/NS 250 ML IV SCH ×4 (09:54→22:09)
[2016-12-18] MEDS: POTASSIUM CHLORIDE 10 MEQ CAP PO SCH ×4 (09:55→22:35)
[2016-12-18] MEDS: PARoxetine HCL 20 MG TAB PO SCH (09:55)
[2016-12-18] MEDS: RIVAROXABAN 20 MG TAB PO SCH (09:55)
[2016-12-18] MEDS: risperiDONE 1 MG TAB PO SCH (09:55)
[2016-12-18] MEDS: PRAVASTATIN SOD 20 MG TAB PO SCH (09:55)
[2016-12-18] MEDS: FUROSEMIDE 20 MG/2 ML VIAL IV PUSH SCH ×2 (09:55→18:05)
[2016-12-18] MEDS: PANTOPRAZOLE SOD 40 MG DELAYED RELEASE TAB PO SCH (09:55)
[2016-12-18] MEDS: SODIUM CHLOR 0.9% 1000 ML INJ 1,000 ML IV SCH (09:56)
--- NOTE | 2016-12-18 10:15 | HHI.HCPN ---
Reason for visit a. To assist with evaluation and management of symptoms including: dyspnea , encephalopathy b. To assist medical decision maker(s) with: better understanding of current medical conditions; weighing benefits/burdens of medical treatment options; making medical treatment decisions. . Subjective/Interval History INTERVAL NOTE: The patient is definitely more alert this morning, and she is somewhat talkative. She is on room air and does not appear dyspneic. She denies pain at this time, although she did have some arthritic complaints last evening. . Family/friend interactions Discussed with her son Miguel by telephone, and he understands she will likely be returning to the retirement soon. We discussed the fact that this may be a predictor of future decline with his mother, and I encouraged him to keep in mind the goals and wishes that she has expressed through her living will. . Advance Directives Living Will: Copy in medical record Health Care Surrogate: Copy in medical record Durable Power of Senior Designer: Copy in medical record Advance Directive Specifics Health Care Surrogate(s): Son, Miguel Grimaldo . Documented care wishes: The patient has a living will, with typical requests regarding no artificial prolongation of the dying process when she has an end-stage or terminal condition. . Objective Vital Signs Date Time Temp Pulse Resp B/P Pulse Ox O2 Delivery O2 Flow Rate FiO2 12/18/16 08:00 79 12/18/16 07:35 92 12/18/16 07:00 98.4 71 17 156/86 96 12/18/16 07:00 69 12/18/16 06:11 69 12/18/16 05:12 69 12/18/16 04:11 69 12/18/16 04:00 68 12/18/16 03:00 98.7 76 125/71 91 12/18/16 03:00 68 12/18/16 02:00 70 12/18/16 01:00 68 12/18/16 00:27 69 12/17/16 23:50 98.8 70 133/63 92 12/17/16 23:00 68 12/17/16 22:00 70 12/17/16 21:43 98.7 70 147/84 92 12/17/16 21:04 93 21 12/17/16 21:00 68 12/17/16 20:00 68 12/17/16 19:00 71 12/17/16 18:00 69 12/17/16 17:00 69 12/17/16 16:00 69 12/17/16 15:00 69 12/17/16 15:00 98.2 69 18 157/75 93 12/17/16 14:00 69 12/17/16 13:00 82 12/17/16 12:00 69 12/17/16 11:00 98.6 69 20 133/57 92 12/17/16 11:00 69 Intake & Output 12/18/16 12/18/16 07:00 19:00 Intake Total 425 ml Output Total 525 ml Balance -100 ml Intake Oral 125 ml IV Total 300 ml Output Urine Total 525 ml Physical Exam CONSTITUTIONAL/GENERAL: This is an elderly, weak patient, in no apparent distress. NECK: Trachea midline. Supple, nontender. No palpable thyroid enlargement or nodularity. CARDIOVASCULAR: Regular rate and rhythm without murmurs, gallops, or rubs. No JVD. Peripheral pulses symmetric. RESPIRATORY/CHEST: Symmetric, unlabored respirations. Scattered rhonchi bilateral GASTROINTESTINAL: Abdomen soft, non-tender, nondistended. No hepato-splenomegaly , or palpable masses. No guarding. Bowel sounds present. GENITOURINARY: Without palpable bladder distension. MUSCULOSKELETAL: Extremities without clubbing, cyanosis, or edema. No joint tenderness or effusion noted. No calf tenderness. No mottling or clubbing. NEUROLOGICAL: Alert, much more verbal, easily follows commands.. PSYCHIATRIC: no apparent hallucinations or other psychotic thought process. . Diagnostic Tests Laboratory Laboratory Tests Test 12/15/16 12/16/16 12/18/16 11:22 05:48 04:35 Phosphorus Level 3.2 MG/DL (2.5-4.9) White Blood Count 17.7 TH/MM3 (4.0-11.0) Red Blood Count 3.29 MIL/MM3 (4.00-5.30) Hemoglobin 10.8 GM/DL (11.6-15.3) Hematocrit 33.1 % (35.0-46.0) Mean Corpuscular Volume 100.7 FL (80.0-100.0) Mean Corpuscular Hemoglobin 32.9 PG (27.0-34.0) Mean Corpuscular Hemoglobin 32.6 % Concent (32.0-36.0) Red Cell Distribution Width 13.6 % (11.6-17.2) Platelet Count 141 TH/MM3 (150-450) Mean Platelet Volume 8.0 FL (7.0-11.0) Sodium Level 141 MEQ/L 142 MEQ/L (136-145) (136-145) Potassium Level 3.3 MEQ/L 3.0 MEQ/L (3.5-5.1) (3.5-5.1) Chloride Level 108 MEQ/L 106 MEQ/L (98-107) (98-107) Carbon Dioxide Level 24.0 MEQ/L 26.0 MEQ/L (21.0-32.0) (21.0-32.0) Anion Gap 9 MEQ/L (5-15) 10 MEQ/L (5-15) Blood Urea Nitrogen 18 MG/DL (7-18) 12 MG/DL (7-18) Creatinine 0.63 MG/DL 0.53 MG/DL (0.50-1.00) (0.50-1.00) Estimat Glomerular Filtration 89 ML/MIN (>89) 109 ML/MIN Rate (>89) Random Glucose 98 MG/DL 107 MG/DL (74-106) (74-106) Lactic Acid Level 1.5 mmol/L (0.4-2.0) Calcium Level 9.1 MG/DL 8.9 MG/DL (8.5-10.1) (8.5-10.1) Result Diagram: 12/16/16 0548 12/18/16 0435 Assessment and Plan Disease Oriented Problem List: (1) respiratory failure, hypoxic Comment: Resolving 12/17/16 (2) pneumonia (HCAP), bilateral (3) multiple lucencies on C-spine CT scan, R/O myeloma (4) CHF, mild, recurrent (5) atrial fibrillation, intermittent (6) dementia, probably end-stage (7) hypertension (8) spinal stenosis (9) hyperlipidemia (10) GERD (11) degenerative arthritis (12) CAD (13) history of CVA (14) hypothyroidism (15) resting tremor Symptom Scale: (1) dyspnea 0-10 Scale: Unable to quantify (2) pain 0-10 Scale: Unable to quantify Pertinent Non-Medical Issues Psychosocial: Retired, , long-term retirement resident, 1 son. Spiritual: Shinto, visit from [facility] has been requested Legal: The patient lacks capacity for decision-making, and because of her dementia and current illnesses will not regain that capacity. She had previously designated her only child/son as healthcare surrogate. Ethical issues impacting care: None . Important Contacts Son: Miguel Grimaldo Work ([employer]): [phone] . Prognosis This patient's prognosis is guarded. She has moderate dementia, a history of recurrent UTI, and now has had this episode of bilateral pneumonia with hypoxic respiratory failure. She is profoundly weak and would be appropriate for hospice services if the goals become comfort oriented. (There is also the uncertainty that is added by seeing the multiple lucencies on C-spine CT exam.) . Code Status: Full Code Plan * DO NOT RESUSCITATE, per patient's son late on 12/16/16 * DECISION-MAKING: The patient lacks capacity for decision-making, and because of her dementia and current illnesses will not regain that capacity. She had previously designated her only child/son Miguel Grimaldo as healthcare surrogate. * GOALS: The patient's son Miguel did elect to honor her previously expressed wishes in the living will, making her DNR while here at the hospital. He wants the antibiotics and treatments continued, planning that she will be able to return to her retirement. Discussed with her son Miguel by telephone again on , and he understands she will likely be returning to the retirement soon. We discussed the fact that this may be a predictor of future decline with his mother, and I encouraged him to keep in mind the goals and wishes that she has expressed through her living will. * She has multiple lucencies on C-spine CT scan, and, depending on what goals evolve and are verbalized by the son, this may need further workup also. * SYMPTOMS: The patient is no longer dyspneic, and has minimal arthritic pains. No further medication recommendations at this time. * Palliative Care will continue to follow this patient during this hospitalization. . Time Spent Total Floor Time (mins): 39 Face to Face Time (mins): 12 >50% Counseling/Coord of Care: Yes Attestation To help prompt me to consider important information that might be impacting today's encounter and assessment, information from prior notes written by myself or my colleagues may have been "brought forward" into today's note. My signature on this note, however, is an attestation that I personally performed the exam, history, and/or decision-making noted today, and, unless otherwise indicated, the interactions with patient, family, and staff as well as the review of records all occurred today. I also attest that the listed assessment and stated plan reflect my best clinical judgment today based on the combination of historical information, prior notes, and today's exam/ interactions. When time spent is documented, it refers only to time spent today by the signer, or if indicated, combined time spent today by collaborating physician/nurse practitioner. Becky Ruano MD Dec 18, 2016 10:15
--- NOTE | 2016-12-18 11:29 | HHI.PR ---
Subjective Interval History Sleeping, arousable, verbal, denies complaints, eating, no problems otherwise, appears back to her baseline at this time Review of Systems Constitutional Constitutional Remarks Does not ambulate, 10 systems reviewed otherwise negative Vitals/Results Intake & Output 12/17/16 12/17/16 12/18/16 15:00 23:00 07:00 Intake Total 1659 ml 425 ml Output Total 1025 ml 525 ml Balance 634 ml -100 ml Intake Oral 340 ml 125 ml IV Total 1319 ml 300 ml Output Urine Total 1025 ml 525 ml Vital Signs Vital Signs Date Time Temp Pulse Resp B/P Pulse Ox O2 Delivery O2 Flow Rate FiO2 12/18/16 10:00 69 12/18/16 09:00 65 12/18/16 08:00 79 12/18/16 07:35 92 12/18/16 07:00 98.4 71 17 156/86 96 12/18/16 07:00 69 12/18/16 06:11 69 12/18/16 05:12 69 12/18/16 04:11 69 12/18/16 04:00 68 12/18/16 03:00 98.7 76 125/71 91 12/18/16 03:00 68 12/18/16 02:00 70 12/18/16 01:00 68 12/18/16 00:27 69 12/17/16 23:50 98.8 70 133/63 92 12/17/16 23:00 68 12/17/16 22:00 70 12/17/16 21:43 98.7 70 147/84 92 12/17/16 21:04 93 21 12/17/16 21:00 68 12/17/16 20:00 68 12/17/16 19:00 71 12/17/16 18:00 69 12/17/16 17:00 69 12/17/16 16:00 69 12/17/16 15:00 69 12/17/16 15:00 98.2 69 18 157/75 93 12/17/16 14:00 69 12/17/16 13:00 82 12/17/16 12:00 69 CBC/BMP: 12/16/16 0548 12/18/16 0435 Lab Results Laboratory Tests Test 12/18/16 04:35 Sodium Level 142 MEQ/L Potassium Level 3.0 MEQ/L Chloride Level 106 MEQ/L Carbon Dioxide Level 26.0 MEQ/L Anion Gap 10 MEQ/L Blood Urea Nitrogen 12 MG/DL Creatinine 0.53 MG/DL Estimat Glomerular Filtration 109 ML/MIN Rate Random Glucose 107 MG/DL Calcium Level 8.9 MG/DL Physical Exam General General Appearance: Well Nourished, Comfortable Eyes Eye Exam: Pupils Reactive Ears & Nose Ears & Nose Exam: Nasal Mucosa [place] Throat Throat Exam: Oral Mucosa [place] & Moist Neck Neck Exam: Trachea Midline Pulmonary Resp Exam: Crackles, Rhonchi Cardiology CV Exam: Normal Sinus Rhythm, Good Perfusion Gastrointestinal/Abdomen GI Exam: Non-Tender, Bowel Sounds Present Musculoskeletal MS Exam: Normal Tone Integumentary Skin Exam: Warm, Dry Neurologic Neuro Exam: Awake, Moving All Extremities Psychiatric Psych Exam: Appropriate Responses Assessment/Plan Assessment/Plan Assessment Sepsis on admission, much improved Pneumonia Hypoxemia Hypokalemia, still ongoing Metabolic encephalopathy, improved Atrial fibrillation Heart failure Leukocytosis Diabetes Management Continue antibiotics Cautious hydration Replace potassium Palliative care consultation DNR Follow cultures Follow white count Follow electrolytes and replace as needed Follow renal function Resume Xarelto Possible discharge to penitentiary tomorrow Discussed with nurse 35 minutes t Norma Berkowitz MD Dec 18, 2016 11:29
[2016-12-18] MEDS ORDERED: BISACODYL 10 MG SUPP RECTAL ONE (13:00)
--- NOTE | 2016-12-18 17:40 | HHI.PR ---
Subjective Remarks 86 YOWF with resp insuff, Pn ,CHF, Dementia , still confused Weaned to RA Objective Vital Signs Vital Signs Date Time Temp Pulse Resp B/P Pulse Ox O2 Delivery O2 Flow Rate FiO2 12/18/16 17:00 68 12/18/16 16:00 68 12/18/16 15:00 69 12/18/16 15:00 98.4 70 18 155/86 93 12/18/16 14:00 69 12/18/16 13:00 70 12/18/16 12:00 72 12/18/16 11:00 69 12/18/16 11:00 98.2 71 18 147/78 92 12/18/16 10:00 69 12/18/16 09:00 65 12/18/16 08:00 79 12/18/16 07:35 92 12/18/16 07:00 98.4 71 17 156/86 96 12/18/16 07:00 69 12/18/16 06:11 69 12/18/16 05:12 69 12/18/16 04:11 69 12/18/16 04:00 68 12/18/16 03:00 98.7 76 125/71 91 12/18/16 03:00 68 12/18/16 02:00 70 12/18/16 01:00 68 12/18/16 00:27 69 12/17/16 23:50 98.8 70 133/63 92 12/17/16 23:00 68 12/17/16 22:00 70 12/17/16 21:43 98.7 70 147/84 92 12/17/16 21:04 93 21 12/17/16 21:00 68 12/17/16 20:00 68 12/17/16 19:00 71 12/17/16 18:00 69 I/O 12/17/16 12/17/16 12/17/16 12/18/16 12/18/16 12/18/16 07:00 15:00 23:00 07:00 15:00 23:00 Intake Total 480 ml 1659 ml 425 ml 1454 ml Output Total 1200 ml 1025 ml 525 ml 1350 ml Balance -720 ml 634 ml -100 ml 104 ml Intake Oral 480 ml 340 ml 125 ml 240 ml IV Total 1319 ml 300 ml 1214 ml Output Urine Total 1200 ml 1025 ml 525 ml 1350 ml Result Diagram: 12/16/16 0548 12/18/16 0435 Objective Remarks GENERAL: Elderly female, mild sob SKIN: Warm and dry. HEAD: Normocephalic. EYES: No scleral icterus. No injection or drainage. NECK: Supple, trachea midline. No JVD or lymphadenopathy. CARDIOVASCULAR: Regular rate and rhythm without murmurs, gallops, or rubs. RESPIRATORY: Breath sounds equal bilaterally. No accessory muscle use. Scattered rales GASTROINTESTINAL: Abdomen soft, non-tender, nondistended. MUSCULOSKELETAL: No cyanosis, or edema. BACK: Nontender without obvious deformity. No CVA tenderness. A/P Assessment and Plan Pneumonia CHF resp Insuff DM DNR PLAN: Cont Abx Gentle diurease monitor Lytes Palliative care consulted. DC Plans underway. Stable on RA Available prn over weekend. John Johnson MD Dec 18, 2016 17:40
[2016-12-18] MEDS: OXYBUTYNIN CHLORIDE 5 MG TAB PO SCH (22:09)
[2016-12-18] MEDS: MIRTAZAPINE 15 MG TAB PO SCH (22:09)
[2016-12-19] VITALS (26 sets, daily range): BP systolic 127–179; BP diastolic 65–94; PULSE 68–76; RESP 16–22; TEMP 97.3–99.8; O2SAT 90–96
[2016-12-19] MEDS: CHLORHEXIDINE GLUCONATE 2 % 1 PACK (2 CLOTHS)(taper/protocol) TOPICAL SCH (04:00)
[2016-12-19] MEDS: SODIUM CHLOR 0.9% 1000 ML INJ 1,000 ML IV SCH (04:25)
[2016-12-19 05:43] LABS: AUTOMATED NEUTROPHIL # 6.6 TH/MM3 (1.8-7.7); BASOPHIL % 0.3 % (0.0-2.0); EOSINOPHIL # 0.1 TH/MM3 (0-0.4); EOSINOPHIL % 0.9 % (0.0-4.0); HEMATOCRIT 33.8 % (35.0-46.0); HEMO FLAGS DIFF FINAL; LYMPH % 11.6 % (9.0-44.0); MEAN CELL VOLUME 99.5 FL (80.0-100.0); MEAN CORPUSCULAR HEMOGLOBIN 34.3 PG (27.0-34.0); MEAN CORPUSCULAR HGB CONC 34.5 % (32.0-36.0); MONO % 9.3 % (0.0-8.0); NEUT % 77.9 % (16.0-70.0); PLATELET COUNT 193 TH/MM3 (150-450); RED CELL DISTRIBUTION WIDTH 13.5 % (11.6-17.2); WHITE BLOOD COUNT 8.5 TH/MM3 (4.0-11.0)
[2016-12-19] MEDS: LEVOTHYROXINE SODIUM 75 MCG TAB PO SCH (06:06)
[2016-12-19] MEDS: INSULIN ASPART SUPPLEMENTAL SCALE SQ SCH ×4 (06:08→21:00)
[2016-12-19 06:58] LABS: BICARBONATE 23.9 MEQ/L (21.0-32.0); POTASSIUM 4.2 MEQ/L (3.5-5.1)
[2016-12-19] MEDS: RESP: ALBUTEROL 2.5 MG/IPRATROPIUM 0.5 MG NEB (SCH) NEB ×2 (07:44→11:12)
[2016-12-19] MEDS: ACETAMINOPHEN/HYDROcodone 325 MG/10 MG TAB PO PRN (08:18)
[2016-12-19] MEDS: PARoxetine HCL 20 MG TAB PO SCH (08:18)
[2016-12-19] MEDS: RIVAROXABAN 20 MG TAB PO SCH (08:18)
[2016-12-19] MEDS: PANTOPRAZOLE SOD 40 MG DELAYED RELEASE TAB PO SCH (08:18)
[2016-12-19] MEDS: risperiDONE 1 MG TAB PO SCH (08:18)
[2016-12-19] MEDS: PRAVASTATIN SOD 20 MG TAB PO SCH (08:18)
[2016-12-19] MEDS: FUROSEMIDE 20 MG/2 ML VIAL IV PUSH SCH ×2 (08:20→17:11)
[2016-12-19] MEDS: VANCOMYCIN 1,000 MG/NS 250 ML IV SCH ×4 (08:20→20:43)
[2016-12-19] MEDS: CEFEPIME 1000 MG/NS 100 ML IV SCH ×4 (08:20→19:51)
[2016-12-19] MEDS: POTASSIUM CHLORIDE 10 MEQ CAP PO SCH ×4 (09:42→20:45)
--- NOTE | 2016-12-19 16:28 | HHI.PR ---
Subjective Subjective Remarks Lethargic Opens eyes to verbal response briefly Color pale Afebrile No code (Fany Koch) Review of Systems Constitutional Constitutional: Fatigue, Weakness Constitutional Remarks 10 point ROS done positives noted (Fany Koch) Pulmonary Respiratory: Shortness of Breath (low volumes) (Fany Koch) Musculoskeletal MS: Weakness, Stiffness (Fany Koch) Psychiatric Psychiatric Remarks Lethargy (Fany Koch) Vitals/Results Intake & Output 12/18/16 12/18/16 12/19/16 15:00 23:00 07:00 Intake Total 1454 ml 795 ml Output Total 1350 ml 950 ml Balance 104 ml -155 ml Intake Oral 240 ml 240 ml IV Total 1214 ml 555 ml Output Urine Total 1350 ml 950 ml # Bowel Movements 0 Vital Signs Vital Signs Date Time Temp Pulse Resp B/P Pulse Ox O2 Delivery O2 Flow Rate FiO2 12/19/16 16:03 69 12/19/16 15:00 69 12/19/16 15:00 99.0 70 22 131/71 91 12/19/16 14:00 68 12/19/16 13:04 69 12/19/16 12:03 69 12/19/16 11:03 97.3 72 20 159/76 92 12/19/16 11:00 76 12/19/16 10:00 69 12/19/16 09:43 21 12/19/16 09:00 68 12/19/16 08:00 72 12/19/16 07:45 94 21 12/19/16 07:00 98.6 71 22 179/94 96 12/19/16 07:00 71 12/19/16 06:00 68 12/19/16 05:00 68 12/19/16 04:00 72 12/19/16 04:00 98.7 70 18 165/90 95 12/19/16 03:00 68 12/19/16 02:00 70 12/19/16 01:00 72 12/19/16 00:00 75 12/19/16 00:00 98.0 70 16 145/79 96 12/18/16 23:00 72 12/18/16 22:00 68 12/18/16 21:00 68 12/18/16 20:12 92 12/18/16 20:00 98.2 70 16 126/58 92 12/18/16 20:00 69 12/18/16 19:00 68 12/18/16 18:00 68 12/18/16 17:00 68 (Fany Koch) CBC/BMP: 12/19/16 0349 12/19/16 0349 Lab Results Laboratory Tests Test 12/19/16 03:49 White Blood Count 8.5 TH/MM3 Red Blood Count 3.40 MIL/MM3 Hemoglobin 11.7 GM/DL Hematocrit 33.8 % Mean Corpuscular Volume 99.5 FL Mean Corpuscular Hemoglobin 34.3 PG Mean Corpuscular Hemoglobin 34.5 % Concent Red Cell Distribution Width 13.5 % Platelet Count 193 TH/MM3 Mean Platelet Volume 8.6 FL Neutrophils (%) (Auto) 77.9 % Lymphocytes (%) (Auto) 11.6 % Monocytes (%) (Auto) 9.3 % Eosinophils (%) (Auto) 0.9 % Basophils (%) (Auto) 0.3 % Neutrophils # (Auto) 6.6 TH/MM3 Lymphocytes # (Auto) 1.0 TH/MM3 Monocytes # (Auto) 0.8 TH/MM3 Eosinophils # (Auto) 0.1 TH/MM3 Basophils # (Auto) 0.0 TH/MM3 CBC Comment DIFF FINAL Differential Comment Sodium Level 142 MEQ/L Potassium Level 4.2 MEQ/L Chloride Level 108 MEQ/L Carbon Dioxide Level 23.9 MEQ/L Anion Gap 10 MEQ/L Blood Urea Nitrogen 13 MG/DL Creatinine 0.60 MG/DL Estimat Glomerular Filtration 94 ML/MIN Rate Random Glucose 117 MG/DL Calcium Level 9.3 MG/DL Phosphorus Level 2.7 MG/DL Magnesium Level 2.0 MG/DL (Fany Koch) Physical Exam General General Appearance: Well Nourished, Comfortable, Pale (Fany Koch) Eyes Eye Exam: Pupils Reactive (Fany Koch) Ears & Nose Ears & Nose Exam: Nasal Mucosa [place] (Fany Koch) Throat Throat Exam: Oral Mucosa [place] & Moist (Fany Koch) Neck Neck Exam: Trachea Midline (Fany KochP) Pulmonary Resp Exam: Crackles, Rhonchi, Decreased Bases, Diminished Breath Sounds, Poor Inspiratory Effort (Fany Koch RIB CHOPPER) Cardiology CV Exam: Normal Sinus Rhythm, Good Perfusion (Fany Koch RIB CHOPPER) Gastrointestinal/Abdomen GI Exam: Non-Tender, Bowel Sounds Present (Fany KochP) Musculoskeletal MS Exam: Normal Tone (Fany Koch RIB CHOPPER) Integumentary Skin Exam: Warm, Dry (Fany KochP) Neurologic Neuro Exam: Awake, Moving All Extremities Neuro Remarks Lethargy opens eyes briefly to verbal response (Fany KochP) Psychiatric Psych Exam: Appropriate Responses (Fany Koch) Assessment/Plan Assessment/Plan Vital signs reviewed, afebrile BP 15 Labs reviewed Sepsis on admission, much improved Pneumonia, Hypoxemia has been medically managed, continue antibiotic therapy for now, appreciate pulmonary consult consulting and management Hypokalemia, monitor labs as needed Metabolic encephalopathy, improved, history of dementia, lethargic today but does open eyes to verbal stimuli, not in conversational Atrial fibrillation, heart rate monitored normal trends for now Heart failure Leukocytosis, continues to be elevated, continue gentle hydration Diabetes, Accu-Cheks sliding scale Discharge planning with palliative care consult pending, patient is no CODE STATUS, DO NOT RESUSCITATE, medical management with monitoring of labs and treatment of symptoms DVT prophylaxis with Xarelto, Discussed with nurse Discussed with Dr. Berkowitz, seen on his behalf No family present t (Fany Koch) Assessment/Plan seen, examined by myself, Dr Berkowitz, today 12/19/16 Discussed with nurse Patient is awakened this time however she sleeps most of the time Verbal at times Change Risperdal 2 daily at bedtime Possible need for Ritalin every morning is still lethargic tomorrow Discussed with mid level provider The exam, history, and the medical decision-making described in the above note were completed with the assistance of the mid-level provider. I reviewed the findings presented. I attest that I had a [id number] encounter with the patient on the same day, and personally performed and documented my assessment and findings in the medical record. (Norma Berkowitz MD) Fany Koch Dec 19, 2016 16:28 Norma Berkowitz MD Dec 19, 2016 17:31
[2016-12-19] MEDS: OXYBUTYNIN CHLORIDE 5 MG TAB PO SCH (20:45)
[2016-12-19] MEDS: MIRTAZAPINE 15 MG TAB PO SCH (20:45)
[2016-12-20] VITALS (24 sets, daily range): BP systolic 116–196; BP diastolic 62–102; PULSE 66–77; RESP 17–22; TEMP 98.2–98.8; O2SAT 92–97
[2016-12-20] MEDS: LEVOTHYROXINE SODIUM 75 MCG TAB PO SCH (06:14)
[2016-12-20] MEDS: INSULIN ASPART SUPPLEMENTAL SCALE SQ SCH ×4 (06:44→21:00)
[2016-12-20] MEDS: RIVAROXABAN 20 MG TAB PO SCH (08:19)
[2016-12-20] MEDS: PRAVASTATIN SOD 20 MG TAB PO SCH (08:19)
[2016-12-20] MEDS: PARoxetine HCL 20 MG TAB PO SCH (08:19)
[2016-12-20] MEDS: PANTOPRAZOLE SOD 40 MG DELAYED RELEASE TAB PO SCH (08:19)
[2016-12-20] MEDS: VANCOMYCIN 1,000 MG/NS 250 ML IV SCH ×4 (08:21→20:50)
[2016-12-20] MEDS: FUROSEMIDE 20 MG/2 ML VIAL IV PUSH SCH ×2 (08:21→17:15)
[2016-12-20] MEDS: CEFEPIME 1000 MG/NS 100 ML IV SCH ×2 (08:22)
[2016-12-20] MEDS: POTASSIUM CHLORIDE 10 MEQ CAP PO SCH ×4 (10:13→20:50)
--- NOTE | 2016-12-20 11:21 | RADRPT ---
EXAM DATE/TIME: 12/20/2016 10:54 [facility] COMPARISON: No previous studies available for comparison. INDICATIONS : Shortness of breath. MEDICAL HISTORY : Cardiovascular disease. Rheumatoid arthritis. Gastroesophageal reflux SURGICAL HISTORY : CABG. Hysterectomy. Pacemaker. ENCOUNTER: Initial ACUITY: 1 week PAIN SCORE: 0/10 LOCATION: Bilateral chest FINDINGS: A single view of the chest demonstrates persistent infiltrate in the right lung base. Left subclavian pacer in good position. One of the sternal wires and clips suggesting CABG. Small hiatal hernia. No visible pneumothorax.. The cardiomediastinal contours are unremarkable. Osseous structures are inta ct. CONCLUSION: Stable mild infiltrate right lung base. Left lung is clear. Small hiatal hernia. Alonzo Goetz MD on December 20, 2016 at 11:19 Board Certified Radiologist. This report was verified electronically.
[2016-12-20] MEDS: SODIUM CHLOR 0.9% 1000 ML INJ 1,000 ML IV SCH (12:35)
--- NOTE | 2016-12-20 13:10 | HHI.PR ---
Subjective Subjective Remarks Lethargic Opens eyes to verbal response briefly Color pale Afebrile No code (Fany Koch) Review of Systems Constitutional Constitutional: Fatigue, Weakness Constitutional Remarks 10 point ROS done positives noted (Fany Koch) Pulmonary Respiratory: Shortness of Breath (low volumes) (Fany Koch) Musculoskeletal MS: Weakness, Stiffness (Fany Koch) Psychiatric Psychiatric Remarks Lethargy (Fany Koch) Vitals/Results Intake & Output 12/19/16 12/19/16 12/20/16 15:00 23:00 07:00 Intake Total 1100 ml 200 ml Output Total 1400 ml 750 ml Balance -300 ml -550 ml Intake Oral 360 ml 200 ml IV Total 740 ml Output Urine Total 1400 ml 750 ml # Bowel Movements 1 0 Vital Signs Vital Signs Date Time Temp Pulse Resp B/P Pulse Ox O2 Delivery O2 Flow Rate FiO2 12/20/16 12:00 74 12/20/16 11:00 98.3 77 17 156/71 93 12/20/16 11:00 70 12/20/16 10:05 68 12/20/16 09:00 68 12/20/16 08:00 72 12/20/16 07:00 98.5 66 18 150/71 94 12/20/16 07:00 69 12/20/16 07:00 94 Nasal Cannula 2.00 12/20/16 06:00 69 12/20/16 05:00 69 12/20/16 04:00 98.7 69 20 148/75 94 12/20/16 04:00 69 12/20/16 02:00 69 12/20/16 00:00 69 12/20/16 00:00 98.8 70 20 116/62 92 12/19/16 23:00 69 12/19/16 22:00 69 12/19/16 20:00 69 12/19/16 20:00 69 12/19/16 19:00 99.8 70 20 127/65 90 12/19/16 18:00 69 12/19/16 17:57 91 21 12/19/16 17:02 69 12/19/16 16:03 69 12/19/16 15:00 69 12/19/16 15:00 99.0 70 22 131/71 91 12/19/16 14:00 68 (Yuliet Kochan M. RESIDENCE COUNSELOR) CBC/BMP: 12/19/16 0349 12/19/16 0349 Physical Exam General General Appearance: Well Nourished, Comfortable, Pale (Zee,Fany M. RESIDENCE COUNSELOR) Eyes Eye Exam: Pupils Reactive ([place] M. RESIDENCE COUNSELOR) Ears & Nose Ears & Nose Exam: Nasal Mucosa [place] (Zee,Fany M. RESIDENCE COUNSELOR) Throat Throat Exam: Oral Mucosa [place] & Moist ([place] M. RESIDENCE COUNSELOR) Neck Neck Exam: Trachea Midline ([place] M. RESIDENCE COUNSELOR) Pulmonary Resp Exam: Crackles, Rhonchi, Decreased Bases, Diminished Breath Sounds, Poor Inspiratory Effort ([place] M. RESIDENCE COUNSELOR) Cardiology CV Exam: Normal Sinus Rhythm, Good Perfusion (ZeeFany M. RESIDENCE COUNSELOR) Gastrointestinal/Abdomen GI Exam: Non-Tender, Bowel Sounds Present (ZeeFany M. RESIDENCE COUNSELOR) Musculoskeletal MS Exam: Normal Tone ([place] M. RESIDENCE COUNSELOR) Integumentary Skin Exam: Warm, Dry (ZeeFany M. RESIDENCE COUNSELOR) Neurologic Neuro Exam: Awake, Moving All Extremities Neuro Remarks Lethargy opens eyes briefly to verbal response (ZeeFany M. RESIDENCE COUNSELOR) Psychiatric Psych Exam: Appropriate Responses ([place],Fany M. RESIDENCE COUNSELOR) Assessment/Plan Assessment/Plan Vital signs reviewed, afebrile BP 15 /76 Labs reviewed, WBC count decreased Sepsis on admission, much improved Pneumonia, Hypoxemia has been medically managed, continue antibiotic therapy for now, appreciate pulmonary consult consulting and management, chest x-ray today to eval any acute changes, lethargy continues, lung volumes short choppy at times Hypokalemia, resolved Metabolic encephalopathy, improved, history of dementia, continues with lethargy , doesn't respond to verbal or tactile stimulation, appears comfortable sleeping no facial grimace Atrial fibrillation, heart rate monitored normal trends for now Heart failure Leukocytosis, gradual decrease, continue gentle hydration Diabetes, Accu-Cheks sliding scale Discharge planning with palliative care consult , patient is no CODE STATUS, DO NOT RESUSCITATE, medical management with monitoring of labs and treatment of symptoms, son is aware of patient's current medical situation. Dependent on patient's findings, possibly could discharge back to dyspnea this week. Condition guarded. DVT prophylaxis with Xarelto, Discussed with nurse Discussed with Dr. Berkowitz, seen on his behalf No family present (Fany Koch) Assessment/Plan seen, examined by myself, Dr Berkowitz, today 12/20/16 Discussed with patient discharge to longterm today Discussed with nurse Discussed with mid level provider The exam, history, and the medical decision-making described in the above note were completed with the assistance of the mid-level provider. I reviewed the findings presented. I attest that I had a [id number] encounter with the patient on the same day, and personally performed and documented my assessment and findings in the medical record. Discharge Minutes: 40 (Norma Berkowitz MD) Fany Koch Dec 20, 2016 13:10 Norma Berkowitz MD Dec 20, 2016 15:42
[2016-12-20] MEDS ORDERED: ALPR.25 PO (15:50)
[2016-12-20] MEDS ORDERED: NORC5TAB PO (15:50)
[2016-12-20] MEDS ORDERED: ZITH500T PO (15:50)
[2016-12-20] MEDS ORDERED: RISP1 PO (15:50)
[2016-12-20] MEDS: ACETAMINOPHEN/HYDROcodone 325 MG/10 MG TAB PO PRN (17:54)
[2016-12-20] MEDS ORDERED: cloNIDine HCL 0.1 MG TAB PO PRN (18:15)
[2016-12-20] MEDS: MIRTAZAPINE 15 MG TAB PO SCH (20:50)
[2016-12-20] MEDS: OXYBUTYNIN CHLORIDE 5 MG TAB PO SCH (20:51)
[2016-12-20] MEDS ORDERED: risperiDONE 1 MG TAB PO SCH (21:00)
[2016-12-21] VITALS (13 sets, daily range): BP systolic 123–158; BP diastolic 66–78; PULSE 59–76; RESP 18–22; TEMP 97.6–98.6; O2SAT 95–97
[2016-12-21] MEDS: LEVOTHYROXINE SODIUM 75 MCG TAB PO SCH (05:33)
[2016-12-21] MEDS: INSULIN ASPART SUPPLEMENTAL SCALE SQ SCH ×2 (05:39→11:00)
[2016-12-21] MEDS: CEFEPIME 1000 MG/NS 100 ML IV SCH ×2 (08:39)
[2016-12-21] MEDS: PRAVASTATIN SOD 20 MG TAB PO SCH (08:40)
[2016-12-21] MEDS: RIVAROXABAN 20 MG TAB PO SCH (08:40)
[2016-12-21] MEDS: VANCOMYCIN 1,000 MG/NS 250 ML IV SCH ×2 (08:40)
[2016-12-21] MEDS: FUROSEMIDE 20 MG/2 ML VIAL IV PUSH SCH (08:41)
[2016-12-21] MEDS: POTASSIUM CHLORIDE 10 MEQ CAP PO SCH (08:41)
[2016-12-21] MEDS: PARoxetine HCL 20 MG TAB PO SCH (08:41)
[2016-12-21] MEDS: PANTOPRAZOLE SOD 40 MG DELAYED RELEASE TAB PO SCH (08:41)
[2016-12-21] MEDS: SODIUM CHLOR 0.9% 1000 ML INJ 1,000 ML IV SCH (08:42)
--- NOTE | 2016-12-21 10:09 | HHI.PR ---
Subjective Subjective Remarks Opens eyes to verbal response briefly No SOB Afebrile (Fany Koch) Review of Systems Constitutional Constitutional: Fatigue (at baseline), Weakness Constitutional Remarks 10 point ROS done positives noted (Fany Koch) Pulmonary Respiratory: Shortness of Breath (none at rest) (Fany Koch) Musculoskeletal MS: Weakness, Stiffness (Fany Koch) Psychiatric Psychiatric: Normal Mood (Fany Koch) Vitals/Results Intake & Output 12/20/16 12/20/16 12/21/16 14:59 22:59 06:59 Intake Total 511 ml 745 ml Balance 511 ml 745 ml Intake Oral 240 ml IV Total 511 ml 505 ml # Voids 3 4 # Bowel Movements 0 Vital Signs Vital Signs Date Time Temp Pulse Resp B/P Pulse Ox O2 Delivery O2 Flow Rate FiO2 12/21/16 09:00 75 12/21/16 08:00 69 12/21/16 07:00 98.6 70 20 153/74 95 12/21/16 07:00 59 12/21/16 07:00 95 12/21/16 06:00 68 12/21/16 05:00 68 12/21/16 04:34 97.6 72 22 158/77 96 12/21/16 04:00 69 12/21/16 03:00 68 12/21/16 02:00 68 12/21/16 01:00 76 12/21/16 00:00 98.0 66 22 123/66 97 12/21/16 00:00 69 12/20/16 23:00 68 12/20/16 22:00 70 12/20/16 21:00 70 12/20/16 20:00 68 12/20/16 20:00 98.2 71 20 135/70 95 12/20/16 19:00 72 12/20/16 19:00 95 Nasal Cannula 2.00 12/20/16 18:50 21 12/20/16 18:25 146/81 12/20/16 18:15 196/102 12/20/16 18:09 70 12/20/16 17:05 72 12/20/16 16:05 71 12/20/16 15:00 69 12/20/16 15:00 98.2 70 22 172/83 97 12/20/16 14:00 70 12/20/16 13:00 74 12/20/16 12:00 74 12/20/16 11:00 98.3 77 17 156/71 93 12/20/16 11:00 70 (Fany KochP) CBC/BMP: 12/19/16 0349 12/19/16 0349 Physical Exam General General Appearance: Well Nourished, Comfortable, Pale (Fany Koch. K [employer] SCHOOL PROFESSIONAL) Eyes Eye Exam: Pupils Reactive (Fany Koch. [employer] S[employer]OL PROFESSIONAL) Ears & Nose Ears & Nose Exam: Nasal Mucosa [place] (Fany Koch. [employer] SCHOOL PROFESSIONAL) Throat Throat Exam: Oral Mucosa [place] & Moist (Fany Koch M. [employer] SCHOOL PROFESSIONAL) Neck Neck Exam: Trachea Midline (Fany Koch M. [employer] SCHOOL PROFESSIONAL) Pulmonary Resp Exam: Crackles, Rhonchi, Decreased Bases, Diminished Breath Sounds, Poor Inspiratory Effort (Fany Koch M. [employer] SCHOOL PROFESSIONAL) Cardiology CV Exam: Normal Sinus Rhythm, Good Perfusion (Fany Koch M. [employer] SCHOOL PROFESSIONAL) Gastrointestinal/Abdomen GI Exam: Non-Tender, Bowel Sounds Present (Fany Koch M. [employer] SCHOOL PROFESSIONAL) Musculoskeletal MS Exam: Normal Tone (Fany Koch M. [employer] SCHOOL PROFESSIONAL) Integumentary Skin Exam: Warm, Dry (Fany Koch M. [employer] SCHOOL PROFESSIONAL) Neurologic Neuro Exam: Awake, Moving All Extremities Neuro Remarks Lethargy opens eyes briefly to verbal response (Fany Koch M. [employer] SCHOOL PROFESSIONAL) Psychiatric Psych Exam: Appropriate Responses (Fany Koch. [employer] SCHOOL PROFESSIONAL) Assessment/Plan Assessment/Plan Vital signs reviewed, normal trends Labs reviewed, chest x-ray done for comparison on 12-20, stable Sepsis on admission, much improved Pneumonia, Hypoxemia has been medically managed, stable without shortness of breath, chest x-ray done on 12-20 probably close to her baseline Hypokalemia, resolved Metabolic encephalopathy, improved, history of dementia, continues with lethargy , doesn't respond to verbal or tactile stimulation, appears comfortable sleeping no facial grimace Atrial fibrillation, heart rate monitored normal trends for now Heart failure Diabetes, Accu-Cheks sliding scale Discharge planning with palliative care consult , patient is no CODE STATUS, DO NOT RESUSCITATE, medical management with monitoring of labs and treatment of symptoms, son is aware of patient's current medical situation. Plan for transition back to her snf, DVT prophylaxis with Xarelto, Discussed with nurse Discussed with Dr. Berkowitz, seen on his behalf No family present (Fany Koch) Assessment/Plan seen, examined by myself, Dr Berkowitz, today 12/21/16 Discussed with patient, she is confused Discussed with nurse Discharge to skilled nursing She did do better this admission however the long-term prognosis remains poor Discussed with mid level provider The exam, history, and the medical decision-making described in the above note were completed with the assistance of the mid-level provider. I reviewed the findings presented. I attest that I had a [id number] encounter with the patient on the same day, and personally performed and documented my assessment and findings in the medical record (Norma Berkowitz MD) Fany Koch Dec 21, 2016 10:08 Norma Berkowitz MD Dec 21, 2016 15:39
== END 2016-12-21 11:53 | DRG 871 ==
LOC: NEPC 22:18 → NEDA 12-15 00:51 → HIMW 12-15 01:55 → HCIS 12-16 18:21
PROVIDERS: ADMIT Specialist; ATTEND Specialist
DX: A41.9 Sepsis, unspecified organism (principal); G93.41 Metabolic encephalopathy; J96.91 Respiratory failure, unspecified with hypoxia; I11.0 Hypertensive heart disease with heart failure; J18.9 Pneumonia, unspecified organism; I50.9 Heart failure, unspecified; N39.0 Urinary tract infection, site not specified; F03.90 Unspecified dementia, unspecified severity, without behavioral disturbance, psychotic disturbance, mood disturbance, and anxiety; I48.91 Unspecified atrial fibrillation; E11.9 Type 2 diabetes mellitus without complications; E03.9 Hypothyroidism, unspecified; R65.20 Severe sepsis without septic shock; E78.5 Hyperlipidemia, unspecified; E87.6 Hypokalemia; I25.10 Atherosclerotic heart disease of native coronary artery without angina pectoris; J45.909 Unspecified asthma, uncomplicated; K21.9 Gastro-esophageal reflux disease without esophagitis; M19.90 Unspecified osteoarthritis, unspecified site; M48.00 Spinal stenosis, site unspecified; M85.80 Other specified disorders of bone density and structure, unspecified site; Z51.5 Encounter for palliative care; Z66 Do not resuscitate; Z74.01 Bed confinement status; Z79.01 Long term (current) use of anticoagulants; Z86.73 Personal history of transient ischemic attack (TIA), and cerebral infarction without residual deficits; Z95.0 Presence of cardiac pacemaker; Z95.1 Presence of aortocoronary bypass graft; Z95.5 Presence of coronary angioplasty implant and graft
CPT/HCPCS: 70450; 71010; 72125; 72170; 76937; 80048; 80053; 82550; 82552; 82948; 83605; 83690; 83735; 83880; 84100; 84484; 85025; 85027; 85610; 85730; 87040; 87641; 93005; 94002; 94640; 94664; J0456; J0692; J1815; J1940; J3370; J7030; J7050

== ENCOUNTER 2016-12-23 08:31 | Inpatient (IN) | payer MEDICARE ==
[~2016-12-23] VITALS: Ht 175.3 cm; Wt 68.0 kg
[2016-12-23] VITALS (8 sets, daily range): BP systolic 133–161; BP diastolic 62–78; PULSE 67–79; RESP 12–20; TEMP 96.5–97.7; O2SAT 94–100
[~2016-12-23 08:31] MED LIST changes: -ACET1CAP18 PO; +ACET650S; -CEFT500T3 PO; +FURO40TA PO; -HYDR-3535 PO; +NORC5TAB PO; -OMEP40CA2 PO; -PARO10TA PO; +PARO20TA2 PO; -PIRB14I INH; +POTA10CA PO; +ZITH500T PO
--- NOTE | 2016-12-23 08:40 | PD ---
HPI Chief Complaint: Altered Mental Status Time Seen by Provider: 08:37 Travel History International Travel<30 days: No Contact w/Intl Traveler<30days: No Traveled to known affect area: No History of Present Illness HPI Patient 86-year-old female presents emergency department for evaluation of hypoxia. On routine vital signs at the residential today her sat was found to be in the 70s, she was placed on 4 L nonrebreather by the residential prior to EMS arrival. EMS states that her sats were within normal limits on their arrival. According to EMS the patient was just admitted for hypoxia recently. The residential computers were down and no paperwork was available however EMS states that the patient is usually more alert and talkative according to residential staff. No reported fevers. The patient is fairly altered, and unable to give any additional history. Joce ANDERSON has gotten in touch with the residential and residential states the patient is usually much more talkative and even tells jokes. She's had a gradual decline over the past few weeks. Apparently she was recently diagnosed with CHF as well. She remains a full code. PFSH Past Medical History Hx Anticoagulant Therapy: Yes (XARELTO ) Arthritis: Yes Asthma: Yes Atrial Fibrillation: Yes Anxiety: Yes Heart Rhythm Problems: Yes Cancer: No Cardiac Catheterization: Yes Cardiovascular Problems: Yes (HEART BY-PASS; PACEMAKER) High Cholesterol: Yes Congestive Heart Failure: No Cerebrovascular Accident: Yes Coronary Artery Disease: Yes Diabetes: No Diminished Hearing: No GERD: Yes Glaucoma: No Hepatitis: No Hiatal Hernia: Yes Heparin Induced Thrombocytopen: No Hypertension: Yes Musculoskeletal: Yes (SPINAL STENOSIS) Neurologic: Yes (TREMORS FOR APPROX 30 YEARS) Psychiatric: No Respiratory: No Immunizations Current: Yes Myocardial Infarction: No Thyroid Disease: Yes Menopausal: Yes Past Surgical History Abdominal Surgery: Yes Cardiac Surgery: Yes (PACEMAKER) Section: Yes Coronary Artery Bypass Graft: Yes (1994 BYPASS DOUBLE) Coronary Stent: Yes (2002) Eye Surgery: Yes (BILAT CATARACTS) Gynecologic Surgery: Yes (; HYSTERECTOMY) Hysterectomy: Yes Joint Replacement: Yes (R KNEE 2004) Pacemaker: Yes (05/24/2008) Tonsillectomy: Yes Other Surgery: Yes Social History Alcohol Use: No Tobacco Use: No Substance Use: No Allergies-Medications (Allergen,Severity, Reaction): Coded Allergies: Epinephrine (Verified Allergy, Severe, HEART RACES, 12/23/16) Sulfa (Verified Allergy, Severe, ANGIO EDEMA, 12/23/16) Monosodium Glutamate (Verified Allergy, Mild, INCREASE HEART RATE, 12/23/16 ) Reported Meds & Prescriptions Reported Meds & Active Scripts Active [place] (Hydrocodone-Acetaminophen) 5-325 mg Tab 1 Tab PO Q4H PRN Zithromax (Azithromycin) 500 Mg Tab 500 Mg PO DAILY Risperdal (Risperidone) 1 Mg Tab 1 Mg PO HS Xanax (Alprazolam) 0.25 Mg Tab 0.25 Mg PO Q8HR PRN Reported Lantus Inj (Insulin Glargine) 1,000 Unit/10 Ml Vial 10 Units SQ HS Acetaminophen 650 Mg/20.3 Ml Solution Furosemide 40 Mg Tab 40 Mg PO DAILY Potassium Chloride ER (Potassium Chloride) 10 Meq Cap 10 Meq PO BID Paroxetine (Paroxetine HCl) 20 Mg Tab 20 Mg PO DAILY Simvastatin 10 Mg Tab 10 Mg PO DAILY Xarelto (Rivaroxaban) 20 Mg Tab 20 Mg PO DAILY Ditropan (Oxybutynin Chloride) 5 Mg Tab 10 Mg PO HS Amlodipine (Amlodipine Besylate) 5 Mg Tab 5 Mg PO DAILY Atenolol 25 Mg Tab 12.5 Mg PO DAILY Levothyroxine (Levothyroxine Sodium) 75 Mcg Tab 75 Mcg PO DAILY Remeron (Mirtazapine) 15 Mg Tab 7.5 Mg PO HS Review of Systems ROS Limitations: Altered Mental Status Physical Exam Exam Limitations: Altered Mental Status Narrative GENERAL: Well-developed, show some temporal wasting, somnolent, mouth open and gaping. SKIN: Focused skin assessment warm/dry. HEAD: Atraumatic. Normocephalic. EYES: Pupils equal and round. No scleral icterus. No injection or drainage. ENT: No nasal bleeding or discharge. Mucous membranes pink and moist. NECK: Trachea midline. No JVD. CARDIOVASCULAR: Regular rate and rhythm. No murmur appreciated. RESPIRATORY: No accessory muscle use. Clear to auscultation. Breath sounds equal bilaterally. GASTROINTESTINAL: Abdomen soft, non-tender, nondistended. Hepatic and splenic margins not palpable. MUSCULOSKELETAL: No obvious deformities. No clubbing. No cyanosis. No edema. NEUROLOGICAL: Awake and alert. Perhaps somewhat hard of hearing, will not participate with a neurologic exam, GCS is [id number] Data Data Last Documented VS Vital Signs Date Time Temp Pulse Resp B/P Pulse Ox O2 Delivery O2 Flow Rate FiO2 12/23/16 10:31 74 20 133/62 100 Nasal Cannula 2 12/23/16 08:34 97.6 Orders Electrocardiogram (12/23/16 08:37) Ckmb (Isoenzyme) Profile (12/23/16 08:37) Complete Blood Count With Diff (12/23/16 08:37) Comprehensive Metabolic Panel (12/23/16 08:37) Magnesium (Mg) (12/23/16 08:37) Prothrombin Time / Inr (Pt) (12/23/16 08:37) Act Partial Throm Time (Ptt) (12/23/16 08:37) Troponin I (12/23/16 08:37) Chest, Single Ap (12/23/16 08:37) Ecg Monitoring (12/23/16 08:37) Iv Access Insert/Monitor (12/23/16 08:37) Oximetry (12/23/16 08:37) Oxygen Administration (12/23/16 08:37) Sodium Chloride 0.9% Flush (Ns Flush) (12/23/16 08:45) CKMB (12/23/16 09:15) CKMB% (12/23/16 09:15) Ammonia (12/23/16 12:01) Resp Blood Gas Venous (12/23/16 ) Admit Order (Ed Use Only) (12/23/16 ) Labs Laboratory Tests Test 12/23/16 12/23/16 09:15 09:50 White Blood Count 9.1 TH/MM3 Red Blood Count 4.25 MIL/MM3 Hemoglobin 14.1 GM/DL Hematocrit 41.9 % Mean Corpuscular Volume 98.6 FL Mean Corpuscular Hemoglobin 33.2 PG Mean Corpuscular Hemoglobin 33.7 % Concent Red Cell Distribution Width 13.6 % Platelet Count 256 TH/MM3 Mean Platelet Volume 8.1 FL Neutrophils (%) (Auto) 78.4 % Lymphocytes (%) (Auto) 13.0 % Monocytes (%) (Auto) 5.9 % Eosinophils (%) (Auto) 1.8 % Basophils (%) (Auto) 0.9 % Neutrophils # (Auto) 7.1 TH/MM3 Lymphocytes # (Auto) 1.2 TH/MM3 Monocytes # (Auto) 0.5 TH/MM3 Eosinophils # (Auto) 0.2 TH/MM3 Basophils # (Auto) 0.1 TH/MM3 CBC Comment DIFF FINAL Differential Comment Sodium Level 142 MEQ/L Potassium Level 4.4 MEQ/L Chloride Level 110 MEQ/L Carbon Dioxide Level 20.8 MEQ/L Anion Gap 11 MEQ/L Blood Urea Nitrogen 42 MG/DL Creatinine 1.49 MG/DL Estimat Glomerular Filtration 33 ML/MIN Rate Random Glucose 91 MG/DL Calcium Level 9.7 MG/DL Magnesium Level 2.3 MG/DL Total Bilirubin 0.6 MG/DL Aspartate Amino Transf 40 U/L (AST/SGOT) Alanine Aminotransferase 28 U/L (ALT/SGPT) Alkaline Phosphatase 64 U/L Total Creatine Kinase 150 U/L Creatine Kinase MB 5.0 NG/ML Troponin I 0.11 NG/ML Total Protein 8.7 GM/DL Albumin 3.1 GM/DL Prothrombin Time 14.9 SEC Prothromb Time International 1.3 RATIO Ratio Activated Partial 33.0 SEC Thromboplast Time MDM Medical Decision Making Medical Screen Exam Complete: Yes Emergency Medical Condition: Yes Interpretation(s) EKG shows a ventricular paced rhythm, Prolonged QTC, no Scarbossa's criteria. This an abnormal EKG. Differential Diagnosis Altered mental status, hypoxia, pneumonia, failure to thrive. Narrative Course Patient was roomed in emergency department, my impression is a female that health is feeling her. EKG and chest x-ray were reassuring. Multiple attempts were made to reach the patient's son and unsuccessful. Patient given her mental status at this time and her history of hypoxic the residential would benefit from observation status, if history of all the patient mainly also need a palliative care consult. Patient was discussed with hospitalist on-call for admission. Patient also does have a sacral decubiti early stage. Diagnosis Primary Impression: respiratory failure, hypoxic Additional Impressions: Failure to thrive in adult Sacral decubitus ulcer Admitting Information Admitting Physician Requests: Admit Condition: Stable El Gracia MD Dec 23, 2016 08:40
[2016-12-23] MEDS ORDERED: SODIUM CHLORIDE 0.9% FLUSH 10 ML FLUSH IVF PRN (08:45)
--- NOTE | 2016-12-23 09:12 | RADRPT ---
EXAM DATE/TIME: 12/23/2016 08:51 [facility] COMPARISON: CHEST SINGLE AP, December 20, 2016, 10:54. INDICATIONS : Unresponsive, irregular heart beat, weak pulse. MEDICAL HISTORY : Unresponsive SURGICAL HISTORY : Pacemaker. CABG. ENCOUNTER: Initial ACUITY: 1 day PAIN SCORE: Non-responsive. LOCATION: Bilateral chest FINDINGS: There is improvement in the aeration of the lungs since the prior examination was likely vascular pul monary edema remaining. The rest of the examination has not significantly changed. CONCLUSION: Improvement in the aeration of the lungs. Johny Soria MD on December 23, 2016 at 9:09 Board Certified Radiologist. This report was verified electronically.
[2016-12-23] MEDS ORDERED: LANTUS2P SQ (09:24)
[2016-12-23 09:40] LABS: AUTOMATED NEUTROPHIL # 7.1 TH/MM3 (1.8-7.7); BASOPHIL # 0.1 TH/MM3 (0-0.2); BASOPHIL % 0.9 % (0.0-2.0); EOSINOPHIL # 0.2 TH/MM3 (0-0.4); EOSINOPHIL % 1.8 % (0.0-4.0); HEMATOCRIT 41.9 % (35.0-46.0); HEMO FLAGS DIFF FINAL; LYMPHOCYTE # 1.2 TH/MM3 (1.0-4.8); MEAN CELL VOLUME 98.6 FL (80.0-100.0); MEAN CORPUSCULAR HEMOGLOBIN 33.2 PG (27.0-34.0); MEAN CORPUSCULAR HGB CONC 33.7 % (32.0-36.0); MONO % 5.9 % (0.0-8.0); NEUT % 78.4 % (16.0-70.0); PLATELET COUNT 256 TH/MM3 (150-450); RED BLOOD COUNT 4.25 MIL/MM3 (4.00-5.30); RED CELL DISTRIBUTION WIDTH 13.6 % (11.6-17.2); WHITE BLOOD COUNT 9.1 TH/MM3 (4.0-11.0)
[2016-12-23 09:51] LABS: ANION GAP 11 MEQ/L (5-15); AST (GOT) 40 U/L (15-37); BICARBONATE 20.8 MEQ/L (21.0-32.0); BLOOD UREA NITROGEN 42 MG/DL (7-18); CHLORIDE 110 MEQ/L (98-107); GLOMERULAR FILTRATION RATE 33 ML/MIN (>89); MAGNESIUM 2.3 MG/DL (1.5-2.5); POTASSIUM 4.4 MEQ/L (3.5-5.1); SODIUM (NA) 142 MEQ/L (136-145)
[2016-12-23 09:52] LABS: ALT (GPT) 28 U/L (10-53)
[2016-12-23 09:56] LABS: ALKALINE PHOSPHATASE 64 U/L (45-117); CREATINE KINASE 150 U/L (26-192); TOTAL BILIRUBIN ADULT 0.6 MG/DL (0.2-1.0)
[2016-12-23 10:18] LABS: INTERNATIONAL NORMALIZED RATIO 1.3 RATIO; PROTHROMBIN TIME - PATIENT 14.9 SEC (9.8-11.6)
[2016-12-23 12:17] LABS: BLOOD GAS BASE EXCESS -0.9 mmol/L (-2-2); BLOOD GAS CARBOXYHEMOGLOBIN 0.9 % (0-4); BLOOD GAS HCO3 22 mmol/L (22-26); BLOOD GAS METHEMOGLOBIN 0.7 % (0-2); BLOOD GAS O2 HGB SATURATION 96 % (90-100); BLOOD GAS OXYGEN CONTENT 17.3 Vol % (12.0-20.0); BLOOD GAS PCO2 30 mmHg (38-42); BLOOD GAS PO2 91 mmHG (61-120); BLOOD GAS TOTAL HGB 12.7 G/DL (12.0-16.0); TEMP CORR TO 98.6
[2016-12-23 12:18] LABS: CRITICAL VALUE NO
[2016-12-23 12:22] LABS: OXYGEN DEVICE RA
[2016-12-23 12:23] LABS: DRAW SITE RT RADIAL; FIO2 21 %; NUMBER OF ARTERIAL PUNCTURES 1; STAT YES; ULNAR PULSE PRESENT
[2016-12-23] MEDS ORDERED: SODIUM CHLORIDE 0.9% FLUSH 10 ML FLUSH IV FLUSH PRN (13:15)
[2016-12-23] MEDS ORDERED: MAGNESIUM HYDROXIDE SUSP 30 ML CUP PO PRN (13:15)
[2016-12-23] MEDS ORDERED: ACETAMINOPHEN 325 MG TAB PO PRN ×2 (13:15)
[2016-12-23] MEDS ORDERED: ONDANSETRON HCL 4 MG/2 ML VIAL IVP PRN (13:15)
[2016-12-23] MEDS ORDERED: NALOXONE HCL 0.4 MG/ML AMP IV PRN ×2 (13:15)
[2016-12-23] MEDS ORDERED: SODIUM CHLOR 0.9% 1000 ML INJ 1,000 ML IV SCH (15:00)
[2016-12-23] MEDS ORDERED: RESP: ALBUTEROL 2.5 MG/IPRATROPIUM 0.5 MG NEB (PRN) NEB (15:30)
--- NOTE | 2016-12-23 16:47 | EKG ---
Date Performed: 12/23/2016 Time Performed: 08:45:35 PTAGE: 86 years EKG: ELECTRONIC VENTRICULAR PACEMAKER ABNORMAL RHYTHM ECG PREVIOUS TRACING : 12/14/2016 22.25 Compared to prior tracing no significant change DOCTOR: Indu Pimentel Interpretating Date/Time 12/23/2016 16:46:18
--- NOTE | 2016-12-23 19:25 | HP.UPD ---
H&P Update Note seen, examined by myself, Dr Berkowitz, today 12/23/16 in room H 90 This Is an 86-year-old female was discharged by the undersigned over the last day or 2 She was admitted initially with septic shock and pneumonia which has gotten better. She was discharged to custodial. She came back today with desaturation however he is clinically at baseline Full history and physical follow Discussed with patient Discussed with mid level provider The exam, history, and the medical decision-making described in the above note were completed with the assistance of the mid-level provider. I reviewed the findings presented. I attest that I had a [id number] encounter with the patient on the same day, and personally performed and documented my assessment and findings in the medical record. Norma Berkowitz MD Dec 23, 2016 19:24
[2016-12-23] MEDS ORDERED: ALPRAZolam 0.25 MG TAB PO PRN (19:30)
[2016-12-23] MEDS ORDERED: ACETAMINOPHEN/HYDROcodone 325 MG/5 MG TAB PO PRN (19:30)
[2016-12-23] MEDS: SODIUM CHLORIDE 0.9% FLUSH 10 ML FLUSH IV FLUSH SCH (21:00)
[2016-12-23] MEDS: INSULIN DETEMIR 100 UNITS/ML VIAL SQ SCH (21:00)
[2016-12-23] MEDS ORDERED: PILL SPLITTER OTHER PRN (21:45)
--- NOTE | 2016-12-23 22:02 | MH ---
cc: JAMSHID BLACK MD DATE OF ADMISSION 12/23/2016 DATE OF 1930 CHIEF COMPLAINT / REASON FOR ADMISSION Altered mental status, hypoxia. Travel in 30 days none. HISTORY OF PRESENT ILLNESS This is an 86-year-old female who was sent back to the group home approximately 2 days ago after being in [facility]. According to the staff the patient was usually more talkative and joking around but she had been lethargic today. Her O2 sat was found to be in the 70s. She was placed on a 4 liter non-rebreather according to the notes and sent to the emergency room per EMS for evaluation. According to the record no noted fevers. The patient has dementia and is unable to give any additional information. The patient is unaware why she is at the hospital and is not sure where she is at this time. She is pulling her mask off, states she does not want to wear it and is attempting to get out bed. PAST MEDICAL HISTORY 1. Atrial fibrillation. 2. Anxiety disorder. 3. Cardiovascular disease. 4. Arthritis. 5. Asthma. 6. The patient is on Xarelto. 7. She has a pacemaker. 8. Previous cardiac catheterization. 9. Previous stroke. 10. Coronary artery disease. 11. Gastroesophageal reflux disease. 12. Hiatal hernia. 13. Hypertension. 14. Spinal stenosis. 15. Neurological tremors for approximately 30 years. 16. Thyroid disease. PAST SURGICAL HISTORY 1. Pacemaker in 2007. 2. Coronary artery bypass graft in 1994. 3. Coronary stents in 2002. 4. Bilateral cataract surgery. 5. section. 6. Hysterectomy. 7. Right knee replacement 2004. 8. Tonsillectomy. 9. Some type of abdominal surgery. ALLERGIES EPINEPHRINE, MONOSODIUM, GLUCONATE, SULFA. MEDICATIONS Reported medications: 1. Hydrocodone. 2. Azithromycin. 3. Risperdal. 4. Xanax. 5. Lantus. 6. Tylenol. 7. Lasix. 8. Potassium. 9. Simvastatin. 10. Paroxetine. 11. Xarelto. 12. . 13. Amlodipine. 14. Atenolol. 15. Levothyroxine. 16. Remeron. SOCIAL HISTORY Currently the patient lives in the group home sitting. She does have a son who is available for her next of kin. REVIEW OF SYSTEMS Unable to obtain secondary to the patient's altered mental status. SOCIAL HISTORY According to the record of tobacco, alcohol or illicit drug use. PHYSICAL EXAMINATION VITAL SIGNS: Temperature is 96.5 axillary, pulse 70, respirations 20, blood pressure was 150/68, low noted 133/62. The O2 sat 98-100% on 2 liters nasal cannula or simple mask. GENERAL: Frial, elderly white female looks to be her stated age. She is now alert, attempting to climb out of the bed. Confused. Skin is pale, warm and dry. HEENT: Atraumatic, normocephalic with thin turgor and facial muscular wasting. Neck is supple. Pupils equal, round, reactive to light and accommodation. Mucous membranes are moist. No scleral icterus. CARDIOVASCULAR: S1-S2, regular rate and rhythm. No murmurs, rubs or gallops audible. RESPIRATORY: Essentially clear anteriorly and posteriorly with no wheezes, rales or rhonchi. ABDOMEN: Soft, flat, nontender, nondistended. MUSCULOSKELETAL: Moving her extremities with purpose. No obvious deformities. Muscular wasting noted. NEUROLOGIC: She is pleasantly confused. Hard of hearing. Awake now. Sitting on the side of the bed, at times attempting to get out of the bed. PSYCHOLOGIC: Mood and affect mild restlessness. LABORATORY DATA Diagnostic data, WBC count 9.1, RBC 4.25, hemoglobin 14.1, hematocrit 41.9. Neutrophil percentage auto count 78.4. Chemistry, sodium 142, potassium 4.4, chloride 110, carbon dioxide 20.8, anion gap 11, BUN 42, creatinine 1.49. GFR 33. Elevated AST at 40. CKMB 5. Troponin 0.11. Total protein 8.7, albumin 3.1. PT and INR 1.3. IMAGING Shows chest x-ray to be improvement in her aeration of lungs. ASSESSMENT AND PLAN 1. Hypoxia. 2. Altered mental status. 3. History of cerebrovascular accident. 4. History of recent pneumonia bilateral. 5. Hypertension. 6. Dementia, end-stage. 7. Diabetes mellitus type 2. 8. History of congestive heart failure. 9. Renal insufficiency. Our plan is to admit. The patient's code is no code, DNR status. We will monitor her vital signs. Activity can be out of bed only with assistance. She will have normal saline, DuoNebs every two hours as needed for any shortness of breath or wheezing. Maintain her oxygen saturation 92% or greater. Currently the patient is pulling her mask off. She can be maintained on a nasal cannula if that is more comfortable to her. Bowel regimen. Continuous telemetry. Palliative care has been consulted for their expert opinion. The patient is elderly, no code status and is struggling in the group home setting with her oxygen levels even though her chest x-ray shows improved aeration. We will reconcile her medications, monitor her labs in the morning after palliative care sees the patient and family has discussed options. The patient's plan of care will reflect their wishes. Dictated by: ALIRIO Kovacs MD ALISSON Mckeon/BELL /6:17 PM /9:28 PM
[2016-12-23] MEDS: risperiDONE 1 MG TAB PO SCH (22:52)
[2016-12-23] MEDS: POTASSIUM CHLORIDE 10 MEQ CAP PO SCH (22:52)
[2016-12-23] MEDS: OXYBUTYNIN CHLORIDE 5 MG TAB PO SCH (22:56)
[2016-12-23] MEDS: MIRTAZAPINE 15 MG TAB PO SCH (22:56)
[2016-12-24] VITALS (8 sets, daily range): BP systolic 124–134; BP diastolic 56–70; PULSE 66–70; RESP 14–16; TEMP 96.8–98.4; O2SAT 95–100
[2016-12-24] MEDS ORDERED: DEXTROSE 50% IN WATER 50 ML SYRINGE IV PRN (00:15)
[2016-12-24] MEDS: DEXTROSE 5% IN WATE 1000ML INJ 1,000 ML IV SCH (00:39)
[2016-12-24] MEDS: LEVOTHYROXINE SODIUM 75 MCG TAB PO SCH (06:33)
--- NOTE | 2016-12-24 06:54 | EKG ---
Date Performed: 12/23/2016 Time Performed: 21:49:27 PTAGE: 86 years EKG: ELECTRONIC VENTRICULAR PACEMAKER ABNORMAL RHYTHM ECG PREVIOUS TRACING : 12/23/2016 08.45 No change from previous tracing noted. DOCTOR: Bud Maki Interpretating Date/Time 12/24/2016 06:53:14
[2016-12-24] MEDS: SODIUM CHLORIDE 0.9% FLUSH 10 ML FLUSH IV FLUSH SCH ×2 (09:00→21:09)
[2016-12-24] MEDS: RIVAROXABAN 20 MG TAB PO SCH (10:56)
[2016-12-24] MEDS: PANTOPRAZOLE SOD 20 MG DELAYED RELEASE TAB PO SCH (10:56)
[2016-12-24] MEDS: PARoxetine HCL 20 MG TAB PO SCH (10:57)
[2016-12-24] MEDS: PRAVASTATIN SOD 20 MG TAB PO SCH (10:57)
[2016-12-24] MEDS: POTASSIUM CHLORIDE 10 MEQ CAP PO SCH ×2 (10:57→21:10)
[2016-12-24] MEDS: AZITHROMYCIN 250 MG TAB PO SCH (10:57)
[2016-12-24] MEDS: ATENOLOL 25 MG TAB PO SCH (10:57)
[2016-12-24] MEDS: FUROSEMIDE 40 MG TAB PO SCH (10:57)
[2016-12-24] MEDS: amLODIPine BESYLATE 5 MG TAB PO SCH (10:57)
--- NOTE | 2016-12-24 11:01 | PD.CONS ---
Consult Service Palliative Care Consult Requested By Amina Primary Care Physician Paulina Primary Care Physician Reason for Consultation a. To assist with evaluation and management of symptoms including:dyspnea b. To assist medical decision maker(s) with: better understanding of current medical conditions; weighing benefits/burdens of medical treatment options; making medical treatment decisions. HPI History of Present Illness 86-year-old long-term resident, with a past history of dementia, CHF, diabetes, CAD, CVA, A. fib and hypertension. Patient was recently seen by palliative care, and was hospitalized from 12/15/2016 to 12/20/2016. For that hospitalization pt became less responsive and appeared dyspneic, and was found on the floor at the long-term. Pt had respiratory insufficiency and with O2 sats in the 80s and was placed on BiPAP on ambulance and continued in the ER. She was found to have leukocytosis, high BNP of 188, lobar consolidation which is patchy and located in the right middle lobe. Patient was found to have multiple lucencies on CT scan of C-spine that may represent multiple myeloma. CT of the brain scan reveals significant atrophy and old lacunar infarct in the left basal ganglia. Given patient's dementia and multiple lucency that may represent multiple myeloma, prognosis was felt to be poor and palliative care was consulted to review goals of care. Pt was give antibiotics, gentle diureses, and patient was able to be weaned off BiPAP and was back in room air. She became more alert and talkative. Palliative care review patient's living will with son, and son requested a DNR status, but goals were aggressive short of resuscitation. Son did not sign community DNR, and pt was discharge back to the nursing facility 12/20/2016. Palliative care did discuss with him that pt will have future decline, and encouraged him to keep in mind goals of care and wishes expressed through her living will. Pt return to the hospital 12/23/2016, 3 days later. for evaluation of hypoxia. On routine vitals at the long-term patient was found to have sats in the 70s , and placed on 4 L nonrebreather by long-term prior to EMS arrival. EMS states that her sats were within normal limits on arrival. In the ER * Temperature is 98.4, pulse is 69, respirations 18, blood pressure is 151/78, pulse ox is 97% * In the ER EKG shows ventricular paced rhythm, prolonged QTC. Further EKGs were read and "compared to prior tracings 12/14/2016, there is no significant change." * Sodium is 142, potassium is 4.4, chloride is 110, carbon dioxide is 20.8, BUN is 42, creatinine is 1.49 * Troponin I 0.11, 0.08, and 0.07 * WBCs 9.1, hemoglobin is 14.1, hematocrit 40.9, platelets 256 * ABG pH is 7.9, CO2 30, PO2 is 91, bicarbonate is 22. * Chest x-ray didn't shows improved aeration of the lungs * Patient is admitted, given normal saline for acute renal insufficiency, duo nebs every 2 hours as needed for shortness of breath, continues telemetry. * Palliative care was consulted to review goals of care with family again. Pt on my visit is confused on restraints, poor historian. On NC. Explain to him about hospice services, what can be offered, and limitations. Reviewed clinical condition. He says he was surprise about the lucencies on CT spine last time and that he was never informed of it. He would like to speak with the attending physician to get his opinion on workup, for lucencies on CT spine on 12/14/2016. I did review with him that at 86 years old, with dementia, chf, deconditioning, it may be very limited in what oncology can do especially with chemo or radiation. That need to be taken into consideration even before starting workup. His goals are aggressive, IV antibiotics, bipap, aggressive treatment short of resucitation. Declined hospice services at this time. Function/Cognitive Trajectory Long-term long-term resident for the past 3 years nonambulatory. Review of Systems ROS Limitations: Other (dementia) Respiratory: COMPLAINS OF: Shortness of breath Psychiatric: COMPLAINS OF: Agitation Past Family Social History Coded Allergies: Epinephrine (Verified Allergy, Severe, HEART RACES, 12/23/16) Sulfa (Verified Allergy, Severe, ANGIO EDEMA, 12/23/16) Monosodium Glutamate (Verified Allergy, Mild, INCREASE HEART RATE, 12/23/16 ) Past Medical History Respiratory failure, hypoxic Pneumonia, bilateral Multiple lucencies on cervical spine CT scan, rule out multiple myeloma CHF, mild, recurrent Dementia, probably end-stage CAD History of CVA Atrial fibrillation, intermittent Degenerative arthritis GERD Hypertension Hypothyroidism Spinal stenosis Resting tremor Hyperlipidemia Past Surgical History Tonsillectomy Hysterectomy Cataracts CABG Coronary stents Right knee surgery Pacemaker Reported Medications Xanax Or tenderness Fentanyl Patch 72 HR (Fentanyl) 12 Mcg/Hr Patch 12 Patch T-DERMAL Q72H Remove old patch when new one placed. Acetaminophen 650 Mg/20.3 Ml Solution Furosemide 40 Mg Tab 40 Mg PO DAILY Potassium Chloride ER (Potassium Chloride) 10 Meq Cap 10 Meq PO BID Ciprofloxacin (Ciprofloxacin HCl) 500 Mg Tab 500 Mg PO DAILY Paroxetine (Paroxetine HCl) 20 Mg Tab 20 Mg PO DAILY Simvastatin 10 Mg Tab 10 Mg PO DAILY Xarelto (Rivaroxaban) 20 Mg Tab 20 Mg PO DAILY Ditropan (Oxybutynin Chloride) 5 Mg Tab 10 Mg PO HS Amlodipine (Amlodipine Besylate) 5 Mg Tab 5 Mg PO DAILY Atenolol 25 Mg Tab 12.5 Mg PO DAILY Omeprazole 40 Mg Cap 40 Mg PO DAILY Levothyroxine (Levothyroxine Sodium) 75 Mcg Tab 75 Mcg PO DAILY Risperdal (Risperidone) 1 Mg Tab 1 Mg PO DAILY Remeron (Mirtazapine) 15 Mg Tab 7.5 Mg PO HS Current Medications Medications (Trade) Dose Ordered Sig/Rehan Route Start Time Stop Time Status Last Admin (NS Flush) 2 ml UNSCH PRN IV FLUSH 12/23/16 13:15 (NS Flush) 2 ml BID IV FLUSH 12/23/16 21:00 (Tylenol) 650 mg Q4H PRN PO 12/23/16 13:15 (Zofran Inj) 4 mg Q6H PRN IVP 12/23/16 13:15 (Tylenol) 650 mg Q6H PRN PO 12/23/16 13:15 (Narcan Inj) 0.4 mg UNSCH PRN IV 12/23/16 13:15 (Milk Of Magnesia Liq) 30 ml Q12H PRN PO 12/23/16 13:15 (Protonix) 20 mg DAILY PO 12/24/16 09:00 (Xanax) 0.25 mg Q8HR PRN PO 12/23/16 19:30 (Norvasc) 5 mg DAILY PO 12/24/16 09:00 (Tenormin) 12.5 mg DAILY PO 12/24/16 09:00 (Zithromax) 500 mg DAILY PO 12/24/16 09:00 (Lasix) 40 mg DAILY PO 12/24/16 09:00 ([place] 5-325 Mg) 1 tab Q4H PRN PO 12/23/16 19:30 (Levemir Inj) 10 units HS SQ 12/23/16 21:00 (Synthroid) 75 mcg DAILY@06 PO 12/24/16 06:00 12/24/16 06:33 (Remeron) 7.5 mg HS PO 12/23/16 21:00 12/23/16 22:56 (Ditropan) 10 mg HS PO 12/23/16 21:00 12/23/16 22:56 (Paxil) 20 mg DAILY PO 12/24/16 09:00 (KCl) 10 meq BID PO 12/23/16 21:00 12/23/16 22:52 (risperDAL) 1 mg HS PO 12/23/16 21:00 12/23/16 22:52 (Xarelto) 20 mg DAILY PO 12/24/16 09:00 (Pravachol) 20 mg DAILY PO 12/24/16 09:00 Miscellaneous 1 ea 1 ea UNSCH PRN OTHER 12/23/16 21:45 (D5W 1000 ml Inj) 1,000 ml @ 42 mls/hr [id number] IV 12/24/16 00:00 12/24/16 00:39 (D50w (Syr) Inj) 25 ml UNSCH PRN IV 12/24/16 00:15 Family History Both parents reportedly from old age. Patient has one son alive in [place] Substance Use Tobacco: None Alcohol: None Prescription med abuse: None Illicits: None . Psychosocial History The patient was born in [place], but moved to [place] at least 15 years ago. She was in 2001 and lived alone until about 3 or 4 years ago when her dementia (progressing and she was moved to a long-term. She has been a long-term resident since then. Has a son James lives in [place]. 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 Spiritual/Cultural Factors Patient is [employer] and suddenly she will like a visit from her line Living Will: Copy in medical record Health Care Surrogate: Copy in medical record Durable Power of Brick Catcher: Copy in medical record Physical Exam Vital Signs Date Time Temp Pulse Resp B/P Pulse Ox O2 Delivery O2 Flow Rate FiO2 12/24/16 09:21 97.0 69 15 130/61 100 12/24/16 05:04 96.8 69 16 130/70 96 12/24/16 02:31 97.2 69 16 134/59 100 12/23/16 23:09 97.7 67 17 136/68 100 12/23/16 19:34 97.6 76 16 144/78 95 12/23/16 14:49 96.5 70 20 150/68 12/23/16 12:13 71 16 152/78 98 Room Air 12/23/16 10:31 74 20 133/62 100 Nasal Cannula 2 Exam CONSTITUTIONAL/GENERAL: This is an elderly, frail patient, in no apparent distress, in restraints. TUBES/LINES/DRAINS: Nasal oxygen, peripheral IV SKIN: No jaundice, rashes, or lesions.upper extremities has ecchymosis. Not diaphoretic. HEAD: Atraumatic. Normocephalic. EYES: Pupils equal and round and reactive. Extraocular motions intact. No scleral icterus. No injection or drainage. Fundi not examined. ENT: Nose without bleeding or purulent drainage. Throat without visible erythema, exudates, masses, or lesions. NECK: Trachea midline. Supple, nontender. No palpable thyroid enlargement or nodularity. CARDIOVASCULAR: Regular rate and rhythm without murmurs, gallops, or rubs. No JVD. Peripheral pulses symmetric. RESPIRATORY/CHEST: Symmetric, unlabored respirations. Scattered rhonchi bilateral GASTROINTESTINAL: Abdomen soft, non-tender, nondistended. No hepato-splenomegaly , or palpable masses. No guarding. Bowel sounds present. GENITOURINARY: Without palpable bladder distension. MUSCULOSKELETAL: Extremities without clubbing, cyanosis, or edema. No joint tenderness or effusion noted. No calf tenderness. No mottling or clubbing. LYMPHATICS: No palpable cervical or supraclavicular adenopathy. NEUROLOGICAL: Lethargic, does follow some simple commands, attempting to pull off O2 mask.. PSYCHIATRIC: no apparent hallucinations or other psychotic thought process. Diagnostic Tests Laboratory Laboratory Tests Test 12/23/16 12/23/16 12/23/16 12/23/16 09:15 09:50 12:10 12:50 White Blood Count 9.1 TH/MM3 (4.0-11.0) Red Blood Count 4.25 MIL/MM3 (4.00-5.30) Hemoglobin 14.1 GM/DL (11.6-15.3) Hematocrit 41.9 % (35.0-46.0) Mean Corpuscular Volume 98.6 FL (80.0-100.0) Mean Corpuscular Hemoglobin 33.2 PG (27.0-34.0) Mean Corpuscular Hemoglobin 33.7 % Concent (32.0-36.0) Red Cell Distribution Width 13.6 % (11.6-17.2) Platelet Count 256 TH/MM3 (150-450) Mean Platelet Volume 8.1 FL (7.0-11.0) Neutrophils (%) (Auto) 78.4 % (16.0-70.0) Lymphocytes (%) (Auto) 13.0 % (9.0-44.0) Monocytes (%) (Auto) 5.9 % (0.0-8.0) Eosinophils (%) (Auto) 1.8 % (0.0-4.0) Basophils (%) (Auto) 0.9 % (0.0-2.0) Neutrophils # (Auto) 7.1 TH/MM3 (1.8-7.7) Lymphocytes # (Auto) 1.2 TH/MM3 (1.0-4.8) Monocytes # (Auto) 0.5 TH/MM3 (0-0.9) Eosinophils # (Auto) 0.2 TH/MM3 (0-0.4) Basophils # (Auto) 0.1 TH/MM3 (0-0.2) CBC Comment DIFF FINAL Differential Comment Sodium Level 142 MEQ/L (136-145) Potassium Level 4.4 MEQ/L (3.5-5.1) Chloride Level 110 MEQ/L (98-107) Carbon Dioxide Level 20.8 MEQ/L (21.0-32.0) Anion Gap 11 MEQ/L (5-15) Blood Urea Nitrogen 42 MG/DL (7-18) Creatinine 1.49 MG/DL (0.50-1.00) Estimat Glomerular Filtration 33 ML/MIN (>89) Rate Random Glucose 91 MG/DL (74-106) Calcium Level 9.7 MG/DL (8.5-10.1) Magnesium Level 2.3 MG/DL (1.5-2.5) Total Bilirubin 0.6 MG/DL (0.2-1.0) Aspartate Amino Transf 40 U/L (15-37) (AST/SGOT) Alanine Aminotransferase 28 U/L (10-53) (ALT/SGPT) Alkaline Phosphatase 64 U/L (45-117) Total Creatine Kinase 150 U/L (26-192) Creatine Kinase MB 5.0 NG/ML (0.5-3.6) Troponin I 0.11 NG/ML (0.02-0.05) Total Protein 8.7 GM/DL (6.4-8.2) Albumin 3.1 GM/DL (3.4-5.0) Prothrombin Time 14.9 SEC (9.8-11.6) Prothromb Time International 1.3 RATIO Ratio Activated Partial 33.0 SEC Thromboplast Time (24.3-30.1) Blood Gas Puncture Site RT RADIAL Blood Gas Patient Temperature 98.6 Blood Gas HCO3 22 mmol/L (22-26) Blood Gas Base Excess -0.9 mmol/L (-2-2) Blood Gas Oxygen Saturation 96 % (90-100) Arterial Blood pH 7.49 (7.380-7.420) Arterial Blood Partial 30 mmHg (38-42) Pressure CO2 Arterial Blood Partial 91 mmHG Pressure O2 (61-120) Arterial Blood Oxygen Content 17.3 Vol % (12.0-20.0) Arterial Blood 0.9 % (0-4) Carboxyhemoglobin Arterial Blood Methemoglobin 0.7 % (0-2) Blood Gas Hemoglobin 12.7 G/DL (12.0-16.0) Oxygen Delivery Device RA Blood Gas Inspired Oxygen 21 % Ammonia 26 MCMOL/L (11-32) Test 12/23/16 12/24/16 17:42 01:46 Total Creatine Kinase 109 U/L 87 U/L (26-192) (26-192) Troponin I 0.08 NG/ML 0.07 NG/ML (0.02-0.05) (0.02-0.05) Result Diagram: 12/23/1691412/23/1615 Imaging Last Impressions Chest X-Ray 12/23/16 0837 Signed Impressions: Service Date/Time: Friday, December 23, 2016 08:51 - CONCLUSION: Improvement in the aeration of the lungs. Johny Soria MD Patient/Family Conference Family Conference Time (mins): 45 Issues Discussed: * Palliative care role, purpose, approach * Additional medical, psychosocial, and spiritual history * Patients general health, functional status, and cognitive changes in the months leading up to the current hospitalization * Patient/family understanding of the current medical problems * Patient/family understanding of prognosis * Patients goals of care as best understood from advance directives and/or conversations and/or values * Current medical treatment options and benefits/burdens of those options * Likely scenarios comparing ongoing aggressive care with a transition to comfort measures only * Questions answered to the best of my ability * Palliative care contact information provided Assessment and Plan Disease Oriented Problem List: (1) Hypoxemia Comment: resolved. Chest X ray is good. (2) Dementia Comment: moderate dementia, not FAST scroe of 7C or endstage at this point. (3) CAD (4) CHF, mild, recurrent (5) Failure to thrive in adult (6) HTN (hypertension) (7) spinal stenosis (8) hyperlipidemia (9) GERD (10) degenerative arthritis (11) history of CVA Symptom Scale: (1) dyspnea 0-10 Scale: Unable to quantify Pertinent Non-Medical Issues Psychosocial: Spiritual: Legal: Ethical issues impacting care: Important Contacts Son: Miguel Grimaldo Work ([employer]): [phone] Prognosis This patient's prognosis is guarded. She has moderate dementia, a history of recurrent UTI, and now has had this episode of bilateral pneumonia with hypoxic respiratory failure. She is profoundly weak and would be appropriate for hospice services if the goals become comfort oriented. (There is also the uncertainty that is added by seeing the multiple lucencies on C-spine CT exam.) Code Status: No Code Plan ==Code: DNR. But amenable to bipap. He seems amenable to sign DNR. == Goals of care. Explain to him about hospice services, what can be offered, and limitations. Reviewed clinical condition. He says he was surprise about the lucencies on CT spine last time and that he was never informed of it. He would like to speak with the attending physician to get his opinion on workup, for lucencies on CT spine on 12/14/2016. I did review with him that at 86 years old, with dementia, chf, deconditioning, it may be very limited in what oncology can do especially with chemo or radiation. That need to be taken into consideration even before starting workup. His goals are aggressive, IV antibiotics, bipap, aggressive treatment short of resucitation. Declined hospice services. == Health care decision maker Miguel Grimaldo. ==dypnea- no new med rec == palliative care will follow up. Time Spent Total Floor Time (mins): 60 Face to Face Time (mins): 45 >50% Counseling/Coord of Care: Yes Thank you for the opportunity to participate in the care of Ms. Grimaldo. Attestation To help prompt me to consider important information that might be impacting today's encounter and assessment, information from prior notes written by myself or my colleagues may have been "brought forward" into today's note. My signature on this note, however, is an attestation that I personally performed the exam, history, and/or decision-making noted today, and, unless otherwise indicated, the interactions with patient, family, and staff as well as the review of records all occurred today. I also attest that the listed assessment and stated plan reflect my best clinical judgment today based on the combination of historical information, prior notes, and today's exam/ interactions. When time spent is documented, it refers only to time spent today by the signer, or if indicated, combined time spent today by collaborating physician/nurse practitioner. Reji Berkowitz MD Dec 24, 2016 11:00
[2016-12-24 11:49] LABS: AUTOMATED NEUTROPHIL # 6.9 TH/MM3 (1.8-7.7); BASOPHIL # 0.1 TH/MM3 (0-0.2); BASOPHIL % 0.6 % (0.0-2.0); EOSINOPHIL # 0.1 TH/MM3 (0-0.4); EOSINOPHIL % 1.6 % (0.0-4.0); HEMATOCRIT 37.3 % (35.0-46.0); HEMO FLAGS DIFF FINAL; LYMPH % 12.7 % (9.0-44.0); LYMPHOCYTE # 1.1 TH/MM3 (1.0-4.8); MEAN CORPUSCULAR HEMOGLOBIN 32.8 PG (27.0-34.0); MEAN CORPUSCULAR HGB CONC 32.5 % (32.0-36.0); MONO % 5.7 % (0.0-8.0); NEUT % 79.4 % (16.0-70.0); PLATELET COUNT 290 TH/MM3 (150-450); RED BLOOD COUNT 3.69 MIL/MM3 (4.00-5.30); RED CELL DISTRIBUTION WIDTH 13.7 % (11.6-17.2); WHITE BLOOD COUNT 8.7 TH/MM3 (4.0-11.0)
[2016-12-24 14:15] LABS: ANION GAP 10 MEQ/L (5-15); BICARBONATE 22.2 MEQ/L (21.0-32.0); BLOOD UREA NITROGEN 42 MG/DL (7-18); CHLORIDE 111 MEQ/L (98-107); GLOMERULAR FILTRATION RATE 56 ML/MIN (>89); POTASSIUM 3.9 MEQ/L (3.5-5.1); SODIUM (NA) 143 MEQ/L (136-145)
[2016-12-24 14:17] LABS: ALT (GPT) 24 U/L (10-53); AST (GOT) 26 U/L (15-37)
[2016-12-24 14:20] LABS: ALKALINE PHOSPHATASE 54 U/L (45-117); TOTAL BILIRUBIN ADULT 0.5 MG/DL (0.2-1.0)
[2016-12-24 16:52] LABS: INDIRECT BILIRUBIN 0.4 MG/DL (0.0-0.8); TOTAL BILIRUBIN ADULT 0.5 MG/DL (0.2-1.0); TOTAL PROTEIN SPE 7.9 GM/DL (6.0-7.6)
[2016-12-24] MEDS ORDERED: DIATRIZOATE MEGLUM/DIATRIZOATE SOD 9 ML CUP PO ONE (17:00)
--- NOTE | 2016-12-24 18:38 | RADRPT ---
EXAM DATE/TIME: 12/24/2016 18:03 [facility] COMPARISON: CT ABDOMEN & PELVIS W/O CONTRAST, December 24, 2016, 18:04. INDICATIONS : Evaluate for malignancy. RADIATION DOSE: 5.53 CTDIvol (mGy) ; Combined studies - Thorax/Abdomen/Pelvis MEDICAL HISTORY : Cardiovascular disease. AFIB, spinal stenosis. SURGICAL HISTORY : Pacemaker. section.Hysterectomy. ENCOUNTER: Initial ACUITY: 3 days PAIN SCALE: Non-responsive LOCATION: Bilateral lower quadrant TECHNIQUE: Volumetric scanning of the chest was performed. Using automated exposure control and adjustment of t he mA and/or kV according to patient size, radiation dose was kept as low as reasonably achievable to obtain optimal diagnostic quality images. DICOM format image data is available electronically for r eview and comparison. Follow-up recommendations for incidentally detected pulmonary nodules are based at a minimum on nodul e size and patient risk factors according to Fleischner Society Guidelines. FINDINGS: There is slight consolidation in right lower lobe and parenchymal infiltrate in right middle lobe in addition to slight probable atelectasis in the left lower lobe posteromedially. There is no pleural e ffusion. No appreciable pathological adenopathy is seen within the mediastinum. There are old healed rib fractures in the left chest. Degenerative changes and hypertrophic changes are seen within the d isc space and facets of the thoracic spine. There are atherosclerotic calcifications of the aorta due to chronic atherosclerotic disease. Coronary artery calcifications are seen typically seen with CAD and need to be evaluated clinically. There is a tiny stone in the left kidney. Approximate 1.4 cm end obronchial density is present in right main bronchus posteriorly may be inspissated mucus, however a mass is difficult to exclude. CONCLUSION: 1. Endobronchial mass versus inspissated mucous right main bronchus. 2. Bilateral parenchymal consolidations and infiltrates worse in right lower lobe. Pneumonia is of pr imary consideration. Johny Soria MD on December 24, 2016 at 18:31 Board Certified Radiologist. This report was verified electronically.
--- NOTE | 2016-12-24 18:45 | RADRPT ---
EXAM DATE/TIME: 12/24/2016 18:04 [facility] COMPARISON: CT THORAX W/O CONTRAST, December 24, 2016, 18:03. INDICATIONS : Evaluate for malignancy. ORAL CONTRAST: No oral contrast ingested. RADIATION DOSE: 5.65 CTDIvol (mGy) ; Combined studies - Thorax/Abdomen/Pelvis MEDICAL HISTORY : Cardiovascular disease. Spinal stenosis. SURGICAL HISTORY : Pacemaker. CABGHysterectomy.. ENCOUNTER: Initial ACUITY: 3 days PAIN SCALE: Non-responsive LOCATION: Bilateral lower quadrant TECHNIQUE: Volumetric scanning of the abdomen and pelvis was performed. Using automated exposure control and adjustment of the mA and/or kV according to patient size, radiation dose was kept as low as reasonably achievable to obtain optimal diagnostic quality images. DICOM format image data is av ailable electronically for review and comparison. FINDINGS: CT Abdomen: The spleen, pancreas, right kidney, adrenals are unremarkable. There is no evidence for a ny appreciable pathological adenopathy, free fluid, or bowel obstruction. Chronic vascular calcifica tions are present involving the aorta, iliac arteries without any significant stenosis or aneurysmal dilatations for technique. Incidental note is made of a tiny 6-7 mm cyst in the right hepatic lobe. H iatal hernia is seen. There is a tiny 3-4 mm nonobstructing stone in the left kidney. There is no ure teral stone and there is no hydronephrosis on either side. CT pelvis: There is no evidence for mass, abscess formation, or any significant adenopathy within the pelvis. There are degenerative changes in the spine with old healed fracture of right inferior pubic ramus. There is moderate amount of stool throughout the colon and to a significant degree in the rec carlos a which measures 9 cm with slight haziness in the perirectal fat plane. There are scattered diverti culi mainly in the sigmoid colon without definite signs of diverticulitis. CONCLUSION: 1. Fecal impaction. 2. Tiny nonobstructing left renal stone. Johny Soria MD on December 24, 2016 at 18:40 Board Certified Radiologist. This report was verified electronically.
--- NOTE | 2016-12-24 18:53 | HHI.PR ---
Subjective Interval History Alert, verbal, oriented to her first and last name and to being in the hospital however unable to focus on a conversation Review of Systems Constitutional Constitutional Remarks Difficult to obtain Vitals/Results Vital Signs Vital Signs Date Time Temp Pulse Resp B/P Pulse Ox O2 Delivery O2 Flow Rate FiO2 12/24/16 14:57 98.2 70 14 124/61 100 12/24/16 11:54 98.4 70 14 131/56 95 12/24/16 09:21 97.0 69 15 130/61 100 12/24/16 05:04 96.8 69 16 130/70 96 12/24/16 02:31 97.2 69 16 134/59 100 12/23/16 23:09 97.7 67 17 136/68 100 12/23/16 19:34 97.6 76 16 144/78 95 CBC/BMP: 12/24/16 1112 12/24/16 1112 Lab Results Laboratory Tests Test 12/24/16 12/24/16 01:46 11:12 Total Creatine Kinase 87 U/L Troponin I 0.07 NG/ML White Blood Count 8.7 TH/MM3 Red Blood Count 3.69 MIL/MM3 Hemoglobin 12.1 GM/DL Hematocrit 37.3 % Mean Corpuscular Volume 101.0 FL Mean Corpuscular Hemoglobin 32.8 PG Mean Corpuscular Hemoglobin 32.5 % Concent Red Cell Distribution Width 13.7 % Platelet Count 290 TH/MM3 Mean Platelet Volume 7.9 FL Neutrophils (%) (Auto) 79.4 % Lymphocytes (%) (Auto) 12.7 % Monocytes (%) (Auto) 5.7 % Eosinophils (%) (Auto) 1.6 % Basophils (%) (Auto) 0.6 % Neutrophils # (Auto) 6.9 TH/MM3 Lymphocytes # (Auto) 1.1 TH/MM3 Monocytes # (Auto) 0.5 TH/MM3 Eosinophils # (Auto) 0.1 TH/MM3 Basophils # (Auto) 0.1 TH/MM3 CBC Comment DIFF FINAL Differential Comment Erythrocyte Sedimentation Rate 50 mm/hr Sodium Level 143 MEQ/L Potassium Level 3.9 MEQ/L Chloride Level 111 MEQ/L Carbon Dioxide Level 22.2 MEQ/L Anion Gap 10 MEQ/L Blood Urea Nitrogen 42 MG/DL Creatinine 0.95 MG/DL Estimat Glomerular Filtration 56 ML/MIN Rate Random Glucose 111 MG/DL Calcium Level 9.4 MG/DL Total Bilirubin 0.5 MG/DL Direct Bilirubin 0.1 MG/DL Indirect Bilirubin 0.4 MG/DL Aspartate Amino Transf 30 U/L (AST/SGOT) Alanine Aminotransferase 24 U/L (ALT/SGPT) Alkaline Phosphatase 55 U/L Total Protein 7.9 GM/DL Albumin 2.8 GM/DL Physical Exam General General Appearance: Well Developed, Comfortable, Anxious Eyes Eye Exam: Pupils Reactive Ears & Nose Ears & Nose Exam: Nasal Mucosa [place] Throat Throat Exam: Oral Mucosa [place] & Moist Neck Neck Exam: Trachea Midline Pulmonary Resp Exam: Breath Sounds Equal, Crackles Cardiology CV Exam: Normal Sinus Rhythm, Good Perfusion Gastrointestinal/Abdomen GI Exam: Non-Tender, Bowel Sounds Present Musculoskeletal MS Exam: Normal Tone Integumentary Skin Exam: Warm, Dry Neurologic Neuro Exam: Awake, Oriented, Speech Clear, Moving All Extremities Psychiatric Psych Exam: Appropriate Responses VTE Prophylaxis VTE Prophylaxis Meds: Heparin Assessment/Plan Assessment/Plan Assessment Severe hypoxemia, especially when sleeping Recent severe pneumonia COPD, suspected Lytic lesions in the cervical spine, question malignancy Management The case was discussed at length with the patient's son Discussed with palliative care The son is very concerned about the possibility of malignancy Who would like a conservative workup done for the question of occult malignancy He would like to know as much as possible was going on with without any invasive measures such as surgery or biopsies We will order bone scan CT chest abdomen and pelvis Sedimentation rate Serum protein electrophoresis Consult oncology Consults psychiatry for competency evaluation Discussed with nurse Discussed with Dr. Berkowitz 45 minutes spent today Discussed Condition with: Patient, Medical Consult, Son Norma Berkowitz MD Dec 24, 2016 18:53
[2016-12-24] MEDS: MIRTAZAPINE 15 MG TAB PO SCH (21:09)
[2016-12-24] MEDS: OXYBUTYNIN CHLORIDE 5 MG TAB PO SCH (21:09)
[2016-12-24] MEDS: risperiDONE 1 MG TAB PO SCH (21:10)
[2016-12-24] MEDS: INSULIN DETEMIR 100 UNITS/ML VIAL SQ SCH (21:15)
[2016-12-25] MEDS: DEXTROSE 5% IN WATE 1000ML INJ 1,000 ML IV SCH ×2 (00:59→22:15)
[2016-12-25 04:53] VITALS: BP 122/58; PULSE 64; RESP 18; TEMP 97.8; O2SAT 95
[2016-12-25] MEDS: LEVOTHYROXINE SODIUM 75 MCG TAB PO SCH (06:43)
[2016-12-25 07:57] VITALS: BP 149/71; PULSE 71; RESP 15; TEMP 97.9; O2SAT 100
[2016-12-25] MEDS ORDERED: Vancomycin Consult Pharmacy 1 EA OTHER SCH (08:00)
[2016-12-25] MEDS ORDERED: RESP: ALBUTEROL 2.5 MG/IPRATROPIUM 0.5 MG NEB (PRN) NEB (08:15)
[2016-12-25] MEDS: CEFEPIME INJ 1,000 MG in SODIUM CHLORIDE 0.9% INJ 100 ML IV SCH ×2 (08:56→22:14)
[2016-12-25] MEDS: amLODIPine BESYLATE 5 MG TAB PO SCH (08:59)
[2016-12-25] MEDS: ATENOLOL 25 MG TAB PO SCH (08:59)
[2016-12-25] MEDS: POTASSIUM CHLORIDE 10 MEQ CAP PO SCH ×2 (08:59→22:13)
[2016-12-25] MEDS: PRAVASTATIN SOD 20 MG TAB PO SCH (08:59)
[2016-12-25] MEDS: AZITHROMYCIN 250 MG TAB PO SCH (08:59)
[2016-12-25] MEDS: RIVAROXABAN 20 MG TAB PO SCH (08:59)
[2016-12-25] MEDS: PARoxetine HCL 20 MG TAB PO SCH (09:00)
[2016-12-25] MEDS: FUROSEMIDE 40 MG TAB PO SCH (09:00)
[2016-12-25] MEDS: PANTOPRAZOLE SOD 20 MG DELAYED RELEASE TAB PO SCH (09:00)
[2016-12-25] MEDS: SODIUM CHLORIDE 0.9% FLUSH 10 ML FLUSH IV FLUSH SCH ×2 (09:01→22:14)
[2016-12-25] MEDS: VANCOMYCIN INJ 1,000 MG in SODIUM CHLOR 0.9% 250 ML INJ 250 ML IV SCH (09:01)
--- NOTE | 2016-12-25 09:37 | MB ---
cc: RHONDA GREENFIELD DATE OF CONSULTATION: 12/25/2016 REASON FOR CONSULTATION Concerns the patient may have a malignancy because of the findings on CT scan of the cervical neck. PATIENT PROFILE The patient is unable to give a history. She is profoundly demented. When I ask her name. She provides her first name. She was not able to provide her last name. She believes she is at home. She does not know who the president is. She does not know that it is 2016 and chooses a variety of years. HISTORY OF PRESENT ILLNESS The patient is a debilitated female whom I am seeing in the emergency room. [facility] a [facility] with progressive dementia, congestive heart failure, diabetes, history of atrial fibrillation and hypertension. She has had hospitalizations for increasing weakness and dyspnea and hypoxia. She underwent a CT scan of the cervical spine without contrast on 12/14/2016 as part of an evaluation following a fall. She was found to have multiple lucencies in the cervical spine suggestive but not diagnostic of multiple myeloma. She has had other extensive studies which have not revealed lytic lesions or metastatic disease to bone. On 12/24/2016 she had a CAT scan of the abdomen and pelvis without contrast which showed a fecal impaction and a tiny nonobstructing left renal stone. She had a CT scan of the thorax on 12/24/2016 showing either an endobronchial mass or more likely inspissated mucus in the right main stem bronchus. She has bilateral parenchymal consolidations any infiltrates, worse in the right lower lung. Pneumonia was felt to be a possibility. There was no evidence of bony destructive disease identified on the CT scans. She has had laboratory studies consisting of the following: On 12/24/2016 hemoglobin 12, hematocrit 37, white count 8700, platelets 290,000. Differential was unremarkable. Sedimentation rate 50. PT 14.9, APTT 33. On 12/24/2016 BUN 42, creatinine 0.95, liver function tests normal, total protein 7.9. A serum protein electrophoresis is pending. A bone scan has been ordered. PAST SURGICAL HISTORY The patient has received epidural injections for pain control. Other surgeries unknown to me. PAST MEDICAL HISTORY 1. Coronary artery disease. 2. Heart failure. 3. Hypertension. 4. History of atrial fibrillation. 5. Hypothyroidism. 6. Previous history of stroke. 7. Progressive dementia. 8. Recurrent pneumonias. MEDICATIONS Prior to admission: 1. Xanax. 2. Amlodipine. 3. Atenolol. 4. Zithromax. 5. Lasix. 6. [place]. 7. Insulin. 8. Remeron. 9. Oxybutynin. 10.Paxil. 11.Risperdal. 12.Xarelto. 13.Simvastatin. ALLERGIES 1. SULFA. 2. MONOSODIUM GLUTAMATE. 3. ? EPINEPHRINE. FAMILY HISTORY Unobtainable. REVIEW OF SYSTEMS The patient cannot focus to give me a review of systems. I asked her if she has pain in the neck and she does not. She tells me about some pain in her legs but the next moment forgets the content of the discussion. PHYSICAL EXAMINATION GENERAL: An elderly female. She appears comfortable in bed. She is not aware of her surroundings. She has no idea that she is in the hospital and conversations do not make any sense. VITAL SIGNS: Blood pressure 140/70, respiratory rate 16, pulse 70, afebrile. O2 sat 100%. HEENT: Head is normocephalic. Sclera and conjunctiva are normal. Oropharynx no teeth. NECK: No adenopathy. BREASTS: Without masses. HEART: Regular rhythm. LUNGS: Decreased sounds at the bases. ABDOMEN: Without hepatosplenomegaly or masses. EXTREMITIES: No edema. MUSCULOSKELETAL: No bone pain. NEUROLOGIC: The patient is not oriented to time, place and possibly name. She moves all extremities well. She converses simple yes and no answers. ASSESSMENT The patient is an 86-year-old female. She has end-stage dementia. I have reviewed the CT scan of the cervical spine and there are a number of small lytic like lesions. Interestingly, there is no evidence of a primary malignancy on a CAT scan of the thorax, abdomen and pelvis and likewise no evidence of lytic or blastic lesions noted on the CT portion bone windows of the thorax, abdomen and pelvis. I suspect myeloma is unlikely as one would anticipate seeing additional lytic lesions. A serum protein electrophoresis is pending and if one desires one can pursue with additional tests such as a serum immunoelectrophoresis, quantitative immunoglobulins, urine protein electrophoresis and urine immunoelectrophoresis. If this is not satisfactory then one can also pursue a CT-guided needle biopsy of the cervical spine. RECOMMENDATIONS I would not recommend doing these tests. This is a profoundly debilitated woman. If malignancy is identified she is not a candidate for any treatment. She does not require any type of palliative radiation therapy. She is comfortable. She is profoundly demented. Subjecting her to unnecessary tests and prodding is not going to be in her best interest. She is clearly not a candidate for any type of systemic therapy for myeloma or any other similar illness. My recommendation would be comfort measures. I tired to reach the son James by phone but was unable to do so. I would strongly recommend against doing a CT-guided needle biopsy of the cervical spine. MD REGINA Arriaza/ZACH /9:04 AM /9:20 AM MTDErica
[2016-12-25 12:02] VITALS: BP 143/64; PULSE 70; RESP 15; TEMP 97.5; O2SAT 96
--- NOTE | 2016-12-25 12:42 | HHI.HCPN ---
Reason for visit a. To assist with evaluation and management of symptoms including: b. To assist medical decision maker(s) with: better understanding of current medical conditions; weighing benefits/burdens of medical treatment options; making medical treatment decisions. Subjective/Interval History Pt pleasantly confused, does not appear to be any distress. Family/friend interactions Hematology and primary have been in contact with son. Review goals of care with son, and amneable for hospice consult. He said "I have heard from 3 doctors." He ask hospice to call him after 4pm Advance Directives Living Will: Copy in medical record Health Care Surrogate: Copy in medical record Durable Power of Mud Jack Nozzleman: Copy in medical record Objective Vital Signs Date Time Temp Pulse Resp B/P Pulse Ox O2 Delivery O2 Flow Rate FiO2 12/25/16 12:02 97.5 70 15 143/64 96 12/25/16 07:57 97.9 71 15 149/71 100 12/25/16 04:53 97.8 64 18 122/58 95 12/24/16 23:30 97.6 66 16 125/60 95 12/24/16 20:25 97 Nasal Cannula 6.00 12/24/16 19:21 98.0 68 16 128/62 97 12/24/16 14:57 98.2 70 14 124/61 100 Physical Exam CONSTITUTIONAL/GENERAL: This is an elderly, frail patient, in no apparent distress. TUBES/LINES/DRAINS: Nasal oxygen, peripheral IV SKIN: No jaundice, rashes, or lesions.upper extremities has ecchymosis. Not diaphoretic. HEAD: Atraumatic. Normocephalic. EYES: Pupils equal and round and reactive. Extraocular motions intact. No scleral icterus. No injection or drainage. Fundi not examined. ENT: Nose without bleeding or purulent drainage. Throat without visible erythema, exudates, masses, or lesions. NECK: Trachea midline. Supple, nontender. No palpable thyroid enlargement or nodularity. CARDIOVASCULAR: Regular rate and rhythm without murmurs, gallops, or rubs. No JVD. Peripheral pulses symmetric. RESPIRATORY/CHEST: Symmetric, unlabored respirations. Scattered rhonchi bilateral GASTROINTESTINAL: Abdomen soft, non-tender, nondistended. No hepato-splenomegaly , or palpable masses. No guarding. Bowel sounds present. GENITOURINARY: Without palpable bladder distension. MUSCULOSKELETAL: Extremities without clubbing, cyanosis, or edema. No joint tenderness or effusion noted. No calf tenderness. No mottling or clubbing. LYMPHATICS: No palpable cervical or supraclavicular adenopathy. NEUROLOGICAL: Lethargic, does follow some simple commands, confused, pleasant PSYCHIATRIC: no apparent hallucinations or other psychotic thought process. Diagnostic Tests Laboratory Laboratory Tests Test 12/23/16 12/23/16 12/23/16 12/23/16 09:15 09:50 12:10 12:50 White Blood Count 9.1 TH/MM3 (4.0-11.0) Red Blood Count 4.25 MIL/MM3 (4.00-5.30) Hemoglobin 14.1 GM/DL (11.6-15.3) Hematocrit 41.9 % (35.0-46.0) Mean Corpuscular Volume 98.6 FL (80.0-100.0) Mean Corpuscular Hemoglobin 33.2 PG (27.0-34.0) Mean Corpuscular Hemoglobin 33.7 % Concent (32.0-36.0) Red Cell Distribution Width 13.6 % (11.6-17.2) Platelet Count 256 TH/MM3 (150-450) Mean Platelet Volume 8.1 FL (7.0-11.0) Neutrophils (%) (Auto) 78.4 % (16.0-70.0) Lymphocytes (%) (Auto) 13.0 % (9.0-44.0) Monocytes (%) (Auto) 5.9 % (0.0-8.0) Eosinophils (%) (Auto) 1.8 % (0.0-4.0) Basophils (%) (Auto) 0.9 % (0.0-2.0) Neutrophils # (Auto) 7.1 TH/MM3 (1.8-7.7) Lymphocytes # (Auto) 1.2 TH/MM3 (1.0-4.8) Monocytes # (Auto) 0.5 TH/MM3 (0-0.9) Eosinophils # (Auto) 0.2 TH/MM3 (0-0.4) Basophils # (Auto) 0.1 TH/MM3 (0-0.2) CBC Comment DIFF FINAL Differential Comment Sodium Level 142 MEQ/L (136-145) Potassium Level 4.4 MEQ/L (3.5-5.1) Chloride Level 110 MEQ/L (98-107) Carbon Dioxide Level 20.8 MEQ/L (21.0-32.0) Anion Gap 11 MEQ/L (5-15) Blood Urea Nitrogen 42 MG/DL (7-18) Creatinine 1.49 MG/DL (0.50-1.00) Estimat Glomerular Filtration 33 ML/MIN (>89) Rate Random Glucose 91 MG/DL (74-106) Calcium Level 9.7 MG/DL (8.5-10.1) Magnesium Level 2.3 MG/DL (1.5-2.5) Total Bilirubin 0.6 MG/DL (0.2-1.0) Aspartate Amino Transf 40 U/L (15-37) (AST/SGOT) Alanine Aminotransferase 28 U/L (10-53) (ALT/SGPT) Alkaline Phosphatase 64 U/L (45-117) Total Creatine Kinase 150 U/L (26-192) Creatine Kinase MB 5.0 NG/ML (0.5-3.6) Troponin I 0.11 NG/ML (0.02-0.05) Total Protein 8.7 GM/DL (6.4-8.2) Albumin 3.1 GM/DL (3.4-5.0) Prothrombin Time 14.9 SEC (9.8-11.6) Prothromb Time International 1.3 RATIO Ratio Activated Partial 33.0 SEC Thromboplast Time (24.3-30.1) Blood Gas Puncture Site RT RADIAL Blood Gas Patient Temperature 98.6 Blood Gas HCO3 22 mmol/L (22-26) Blood Gas Base Excess -0.9 mmol/L (-2-2) Blood Gas Oxygen Saturation 96 % (90-100) Arterial Blood pH 7.49 (7.380-7.420) Arterial Blood Partial 30 mmHg (38-42) Pressure CO2 Arterial Blood Partial 91 mmHG Pressure O2 (61-120) Arterial Blood Oxygen Content 17.3 Vol % (12.0-20.0) Arterial Blood 0.9 % (0-4) Carboxyhemoglobin Arterial Blood Methemoglobin 0.7 % (0-2) Blood Gas Hemoglobin 12.7 G/DL (12.0-16.0) Oxygen Delivery Device RA Blood Gas Inspired Oxygen 21 % Ammonia 26 MCMOL/L (11-32) Test 12/23/16 12/24/16 12/24/16 17:42 01:46 11:12 Total Creatine Kinase 109 U/L 87 U/L (26-192) (26-192) Troponin I 0.08 NG/ML 0.07 NG/ML (0.02-0.05) (0.02-0.05) White Blood Count 8.7 TH/MM3 (4.0-11.0) Red Blood Count 3.69 MIL/MM3 (4.00-5.30) Hemoglobin 12.1 GM/DL (11.6-15.3) Hematocrit 37.3 % (35.0-46.0) Mean Corpuscular Volume 101.0 FL (80.0-100.0) Mean Corpuscular Hemoglobin 32.8 PG (27.0-34.0) Mean Corpuscular Hemoglobin 32.5 % Concent (32.0-36.0) Red Cell Distribution Width 13.7 % (11.6-17.2) Platelet Count 290 TH/MM3 (150-450) Mean Platelet Volume 7.9 FL (7.0-11.0) Neutrophils (%) (Auto) 79.4 % (16.0-70.0) Lymphocytes (%) (Auto) 12.7 % (9.0-44.0) Monocytes (%) (Auto) 5.7 % (0.0-8.0) Eosinophils (%) (Auto) 1.6 % (0.0-4.0) Basophils (%) (Auto) 0.6 % (0.0-2.0) Neutrophils # (Auto) 6.9 TH/MM3 (1.8-7.7) Lymphocytes # (Auto) 1.1 TH/MM3 (1.0-4.8) Monocytes # (Auto) 0.5 TH/MM3 (0-0.9) Eosinophils # (Auto) 0.1 TH/MM3 (0-0.4) Basophils # (Auto) 0.1 TH/MM3 (0-0.2) CBC Comment DIFF FINAL Differential Comment Erythrocyte Sedimentation Rate 50 mm/hr (0-30) Sodium Level 143 MEQ/L (136-145) Potassium Level 3.9 MEQ/L (3.5-5.1) Chloride Level 111 MEQ/L (98-107) Carbon Dioxide Level 22.2 MEQ/L (21.0-32.0) Anion Gap 10 MEQ/L (5-15) Blood Urea Nitrogen 42 MG/DL (7-18) Creatinine 0.95 MG/DL (0.50-1.00) Estimat Glomerular Filtration 56 ML/MIN (>89) Rate Random Glucose 111 MG/DL (74-106) Calcium Level 9.4 MG/DL (8.5-10.1) Total Bilirubin 0.5 MG/DL (0.2-1.0) Direct Bilirubin 0.1 MG/DL (0.0-0.2) Indirect Bilirubin 0.4 MG/DL (0.0-0.8) Aspartate Amino Transf 30 U/L (15-37) (AST/SGOT) Alanine Aminotransferase 24 U/L (10-53) (ALT/SGPT) Alkaline Phosphatase 55 U/L (45-117) Total Protein 7.9 GM/DL (6.0-7.6) Albumin 2.8 GM/DL (3.4-5.0) Result Diagram: 12/24/16 1112 12/24/16 1112 Assessment and Plan Disease Oriented Problem List: (1) Hypoxemia Comment: resolved. Chest X ray is good. (2) Dementia Comment: moderate dementia, not FAST scroe of 7C or endstage at this point. (3) CAD (4) CHF, mild, recurrent (5) Failure to thrive in adult (6) HTN (hypertension) (7) spinal stenosis (8) hyperlipidemia (9) GERD (10) degenerative arthritis (11) history of CVA Symptom Scale: Pertinent Non-Medical Issues Psychosocial: Spiritual: Legal: Ethical issues impacting care: Important Contacts Son: Miguel Grimaldo Work ([employer]): [phone] Prognosis This patient's prognosis is guarded. She has moderate dementia, a history of recurrent UTI, and now has had this episode of bilateral pneumonia with hypoxic respiratory failure. She is profoundly weak and would be appropriate for hospice services if the goals become comfort oriented. (There is also the uncertainty that is added by seeing the multiple lucencies on C-spine CT exam.) Code Status: No Code Plan ==Code: DNR. == Pt has no capacity to make medical decisions. == Goals of care. After consultation with palliative care, hospitalist and oncology, he is amenable to hospice consultation. Pt is not a candidate for chemo/radiation or treament if it is confirm there is malignancy. He wants pt to go back to [facility], and "Stay there." He is amenable for hospice services to follow along there. I will place hospice consult. == Health care decision maker Miguel Grimaldo. == palliative care will follow up. == d/w with attending physician. Time Spent Total Floor Time (mins): 45 Face to Face Time (mins): 35 Attestation To help prompt me to consider important information that might be impacting today's encounter and assessment, information from prior notes written by myself or my colleagues may have been "brought forward" into today's note. My signature on this note, however, is an attestation that I personally performed the exam, history, and/or decision-making noted today, and, unless otherwise indicated, the interactions with patient, family, and staff as well as the review of records all occurred today. I also attest that the listed assessment and stated plan reflect my best clinical judgment today based on the combination of historical information, prior notes, and today's exam/ interactions. When time spent is documented, it refers only to time spent today by the signer, or if indicated, combined time spent today by collaborating physician/nurse practitioner. Reji Berkowitz MD Dec 25, 2016 12:42
[2016-12-25 15:56] VITALS: BP 115/58; PULSE 70; RESP 16; TEMP 97.9; O2SAT 97
[2016-12-25 18:45] VITALS: BP 112/55; PULSE 70; RESP 20; O2SAT 97
[2016-12-25 18:53] LABS: ALBUMIN SPE 3.59 GM/DL (3.50-5.00); ALPHA 1 GLOBULIN 0.33 GM/DL (0.11-0.29); ALPHA 2 GLOBULIN 1.11 GM/DL (0.22-1.00); BETA GLOBULINS (SPE) 0.96 GM/DL (0.53-1.03)
--- NOTE | 2016-12-25 19:45 | HHI.PR ---
Subjective Interval History Alert, verbal, denies complaints, oriented to place and person but confused otherwise, no visible distress Review of Systems Constitutional Constitutional Remarks Difficult to obtain Vitals/Results Vital Signs Vital Signs Date Time Temp Pulse Resp B/P Pulse Ox O2 Delivery O2 Flow Rate FiO2 12/25/16 18:45 70 20 112/55 97 12/25/16 15:56 97.9 70 16 115/58 97 12/25/16 12:02 97.5 70 15 143/64 96 12/25/16 07:57 97.9 71 15 149/71 100 12/25/16 04:53 97.8 64 18 122/58 95 12/24/16 23:30 97.6 66 16 125/60 95 12/24/16 20:25 97 Nasal Cannula 6.00 CBC/BMP: 12/24/16 1112 12/24/16 1112 Physical Exam General General Appearance: Well Developed, Comfortable, Anxious Eyes Eye Exam: Pupils Reactive Ears & Nose Ears & Nose Exam: Nasal Mucosa [place] Throat Throat Exam: Oral Mucosa [place] & Moist Neck Neck Exam: Trachea Midline Pulmonary Resp Exam: Breath Sounds Equal, Crackles Cardiology CV Exam: Normal Sinus Rhythm, Good Perfusion Gastrointestinal/Abdomen GI Exam: Non-Tender, Bowel Sounds Present Musculoskeletal MS Exam: Normal Tone Integumentary Skin Exam: Warm, Dry Neurologic Neuro Exam: Awake, Oriented, Speech Clear, Moving All Extremities Psychiatric Psych Exam: Appropriate Responses VTE Prophylaxis VTE Prophylaxis Meds: Heparin Assessment/Plan Assessment/Plan Assessment Right lower lobe pneumonia Very dense mucous plug versus lung mass right lower lung Severe hypoxemia, especially when sleeping dementia COPD, suspected, prior history of smoking Lytic lesions in the cervical spine, question metastatic Management The case was discussed again today at length with the patient's son Discussed with palliative care doctor ELI and with oncologist Dr. Kessler The son is very concerned about the possibility of malignancy He would like the patient considered for bronchoscopy Discussed with nurse Discussed with hospice nurse Over 45 minutes spent today Norma Berkowitz MD Dec 25, 2016 19:45
[2016-12-25 20:00] VITALS: BP 125/93; PULSE 70; RESP 18; TEMP 97.1; O2SAT 97
[2016-12-25] MEDS: INSULIN DETEMIR 100 UNITS/ML VIAL SQ SCH (21:00)
[2016-12-25] MEDS: risperiDONE 1 MG TAB PO SCH (21:00)
[2016-12-25] MEDS: MIRTAZAPINE 15 MG TAB PO SCH (22:14)
[2016-12-25] MEDS: OXYBUTYNIN CHLORIDE 5 MG TAB PO SCH (22:14)
[2016-12-26] VITALS: BP 120/58; PULSE 85; RESP 18; TEMP 96.9; O2SAT 98
[2016-12-26 04:00] VITALS: BP 151/67; PULSE 70; RESP 14; TEMP 96.8; O2SAT 98
[2016-12-26] MEDS: LEVOTHYROXINE SODIUM 75 MCG TAB PO SCH (06:00)
[2016-12-26 08:00] VITALS: BP 124/59; PULSE 70; RESP 18; TEMP 96.5; O2SAT 97
[2016-12-26] MEDS: CEFEPIME INJ 1,000 MG in SODIUM CHLORIDE 0.9% INJ 100 ML IV SCH ×2 (08:30→20:00)
[2016-12-26] MEDS: SODIUM CHLORIDE 0.9% FLUSH 10 ML FLUSH IV FLUSH SCH ×2 (08:30→21:00)
[2016-12-26] MEDS: PRAVASTATIN SOD 20 MG TAB PO SCH (08:31)
[2016-12-26] MEDS: AZITHROMYCIN 250 MG TAB PO SCH (08:31)
[2016-12-26] MEDS: ATENOLOL 25 MG TAB PO SCH (08:31)
[2016-12-26] MEDS: PANTOPRAZOLE SOD 20 MG DELAYED RELEASE TAB PO SCH (08:31)
[2016-12-26] MEDS: POTASSIUM CHLORIDE 10 MEQ CAP PO SCH ×2 (08:31→21:11)
[2016-12-26] MEDS: amLODIPine BESYLATE 5 MG TAB PO SCH (08:31)
[2016-12-26] MEDS: RIVAROXABAN 20 MG TAB PO SCH (08:31)
[2016-12-26] MEDS: FUROSEMIDE 40 MG TAB PO SCH (08:31)
[2016-12-26] MEDS: PARoxetine HCL 20 MG TAB PO SCH (08:31)
[2016-12-26] MEDS: VANCOMYCIN INJ 1,000 MG in SODIUM CHLOR 0.9% 250 ML INJ 250 ML IV SCH (09:20)
[2016-12-26 12:00] VITALS: BP 126/60; PULSE 74; RESP 18; TEMP 97.2; O2SAT 98
[2016-12-26 16:00] VITALS: BP 120/58; PULSE 69; RESP 18; TEMP 97; O2SAT 99
--- NOTE | 2016-12-26 17:09 | MB ---
cc: DANIEL,DANIEL DATE OF CONSULTATION 12/26/16 REASON FOR CONSULTATION Respiratory failure. HISTORY OF PRESENT ILLNESS The patient is an 86-year-old female who was admitted from a [facility] post recent discharge from the hospital because of altered mental status being more quiet than usual and somewhat lethargic. Her oxygen saturation noted to be in the 70s. The patient was hospitalized for same. She has a previous diagnosis of pneumonia for which she was treated. She does not relate any history. She continues to be quite lethargic and obtunded and the history is obtained from her record. PAST MEDICAL HISTORY Her past medical history is that of pneumonia, asthma and/or COPD, atrial fibrillation, previous cerebrovascular accident, atrial fibrillation on Xarelto, hypertension, spinal stenosis, hypothyroidism. She has a pacemaker in place. ALLERGIES Sulfa drugs, glutamate monosodium, epinephrine. MEDICATIONS At present: 1. Risperidone. 2. Zithromax. 3. Hydrocortisone. 4. Insulin. 5. Lasix. 6. Potassium. 7. Simvastatin. 8. Paroxetine. 9. Xarelto. 10. Amlodipine. 11. Levothyroxine. 12. Atenolol. 13. Remeron. SOCIAL HISTORY Not obtainable, apparently had smoked in the past. REVIEW OF SYSTEMS Essentially as above, otherwise, not obtainable. PHYSICAL EXAMINATION GENERAL: The patient is alert. VITAL SIGNS: Temperature 97, pulse is 70, respirations 18, blood pressure 140/70. HEENT: Exam unremarkable. Eyes without icterus. NECK: Without adenopathy or thyroid enlargement. CHEST: No dullness to percussion, clear to auscultation. CARDIAC: Cardiac exam PMI not appreciated, irregularity noted. ABDOMEN: Lax, audible bowel sounds. EXTREMITIES: No clubbing, cyanosis or edema. LABORATORY DATA White count 8000, hemoglobin 12, hematocrit 37, platelets 290,000, sodium 143, potassium 3.9, BUN 42, creatinine 0.9. ABG pH 7.49, pCO2 30, pO2 91 on room air. IMPRESSION 1. Hypoxic respiratory failure, improved. 2. Severe dementia. 3. Atrial fibrillation. 4. Hypertension. 5. Status post CVA. PLAN The patient has severe dementia. She was seen by oncology for her lytic lesion in the cervical spine. Further extensive workup was felt unnecessary at this point. Palliative care would be a good she given the patient's severe dementia. From a pulmonary standpoint the same would applied. The patient does have bilateral changes at the lung bases. She does not move much and atelectatic change or pneumonitis are a possibility, most likely she does have a current aspiration. Palliative care and comfort measures would be appropriate. At present she has been placed on antibiotic therapy which is appropriate, will continue the same. Bronchodilator therapy and pulmonary toilet. Follow her course along with you. Her outlook is obviously very poor. I do thank you for asking me to partake in Mrs. Grimaldo's care. Daniel Sanchez MD WWW/EO /4:31 PM /4:53 PM
--- NOTE | 2016-12-26 17:24 | HHI.PR ---
Subjective Interval History Alert, verbal, denies complaints, mildly confused Review of Systems Constitutional Constitutional Remarks Does not ambulate, 10 systems reviewed and otherwise negative Vitals/Results Intake & Output 12/25/16 12/25/16 12/26/16 14:59 22:59 06:59 # Voids 1 # Bowel Movements 1 Vital Signs Vital Signs Date Time Temp Pulse Resp B/P Pulse Ox O2 Delivery O2 Flow Rate FiO2 12/26/16 12:00 97.2 74 18 126/60 98 12/26/16 08:00 96.5 70 18 124/59 97 12/26/16 04:00 96.8 70 14 151/67 98 12/26/16 00:00 96.9 85 18 120/58 98 12/25/16 20:00 97.1 70 18 125/93 97 12/25/16 18:45 70 20 112/55 97 CBC/BMP: 12/24/16 1112 12/24/16 1112 Physical Exam General General Appearance: Well Developed, Comfortable, Anxious Eyes Eye Exam: Pupils Reactive Ears & Nose Ears & Nose Exam: Nasal Mucosa [place] Throat Throat Exam: Oral Mucosa [place] & Moist Neck Neck Exam: Trachea Midline Pulmonary Resp Exam: Breath Sounds Equal, Crackles Cardiology CV Exam: Normal Sinus Rhythm, Good Perfusion Gastrointestinal/Abdomen GI Exam: Non-Tender, Bowel Sounds Present Musculoskeletal MS Exam: Normal Tone Integumentary Skin Exam: Warm, Dry Neurologic Neuro Exam: Awake, Oriented, Speech Clear, Moving All Extremities Psychiatric Psych Exam: Appropriate Responses VTE Prophylaxis VTE Prophylaxis Meds: Heparin Assessment/Plan Assessment/Plan Assessment Right lower lobe pneumonia Very dense mucous plug versus lung mass right lower lung Severe hypoxemia, especially when sleeping dementia COPD, suspected, prior history of smoking Lytic lesions in the cervical spine, question metastatic Management Continue antibiotics Pulmonology consulted for possible bronchoscopy Continue bronchodilators Continue medications otherwise Discussed with patient Discussed with nurse 35 spent today Norma Berkowitz MD Dec 26, 2016 17:24
[2016-12-26 20:00] VITALS: BP 124/68; PULSE 70; RESP 20; TEMP 97.5; O2SAT 97
[2016-12-26] MEDS: INSULIN DETEMIR 100 UNITS/ML VIAL SQ SCH (21:00)
[2016-12-26] MEDS: OXYBUTYNIN CHLORIDE 5 MG TAB PO SCH (21:10)
[2016-12-26] MEDS: risperiDONE 1 MG TAB PO SCH (21:10)
[2016-12-26] MEDS: MIRTAZAPINE 15 MG TAB PO SCH (21:11)
[2016-12-27] VITALS (8 sets, daily range): BP systolic 116–134; BP diastolic 52–79; PULSE 63–70; RESP 16–20; TEMP 96.1–98.1; O2SAT 95–98
[2016-12-27] MEDS: LEVOTHYROXINE SODIUM 75 MCG TAB PO SCH (06:00)
[2016-12-27] MEDS: CEFEPIME INJ 1,000 MG in SODIUM CHLORIDE 0.9% INJ 100 ML IV SCH ×2 (08:47→08:58)
[2016-12-27] MEDS: VANCOMYCIN INJ 1,000 MG in SODIUM CHLOR 0.9% 250 ML INJ 250 ML IV SCH (08:49)
[2016-12-27] MEDS: POTASSIUM CHLORIDE 10 MEQ CAP PO SCH ×2 (08:52→20:02)
[2016-12-27] MEDS: ATENOLOL 25 MG TAB PO SCH (08:52)
[2016-12-27] MEDS: RIVAROXABAN 20 MG TAB PO SCH (08:52)
[2016-12-27] MEDS: PRAVASTATIN SOD 20 MG TAB PO SCH (08:52)
[2016-12-27] MEDS: PARoxetine HCL 20 MG TAB PO SCH (08:53)
[2016-12-27] MEDS: AZITHROMYCIN 250 MG TAB PO SCH (08:53)
[2016-12-27] MEDS: FUROSEMIDE 40 MG TAB PO SCH (08:53)
[2016-12-27] MEDS: amLODIPine BESYLATE 5 MG TAB PO SCH (08:53)
[2016-12-27] MEDS: SODIUM CHLORIDE 0.9% FLUSH 10 ML FLUSH IV FLUSH SCH ×2 (08:55→20:03)
[2016-12-27] MEDS: DEXTROSE 5% IN WATE 1000ML INJ 1,000 ML IV SCH ×2 (08:58→23:43)
[2016-12-27] MEDS: PANTOPRAZOLE SOD 20 MG DELAYED RELEASE TAB PO SCH (08:59)
--- NOTE | 2016-12-27 15:53 | HHI.PR ---
Subjective Remarks ALERT CONFUSED NO SOB Objective Vital Signs Date Time Temp Pulse Resp B/P Pulse Ox O2 Delivery O2 Flow Rate FiO2 12/27/16 13:44 95 Nasal Cannula 2.00 12/27/16 12:00 97.4 68 18 116/58 95 12/27/16 08:00 97.5 70 20 129/79 96 12/27/16 04:00 97.8 70 20 127/68 96 12/27/16 00:00 98.0 70 20 134/68 96 12/26/16 20:00 97.5 70 20 124/68 97 12/26/16 16:00 97.0 69 18 120/58 99 I/O 12/26/16 12/26/16 12/26/16 12/27/16 12/27/16 12/27/16 07:00 15:00 23:00 07:00 15:00 23:00 Intake Total 480 ml 120 ml 120 ml Balance 480 ml 120 ml 120 ml Intake Oral 480 ml 120 ml 120 ml # Voids 1 2 2 1 # Bowel Movements 1 0 0 Result Diagram: 12/24/16 1112 12/27/16 0659 Objective Remarks GENERAL: SKIN: Warm and dry. HEAD: Atraumatic. Normocephalic. EYES: Pupils equal and round. No scleral icterus. No injection or drainage. ENT: No nasal bleeding or discharge. Mucous membranes pink and moist. NECK: Trachea midline. No JVD. CARDIOVASCULAR: Regular rate and rhythm. RESPIRATORY: No accessory muscle use. Clear to auscultation. Breath sounds equal bilaterally. GASTROINTESTINAL: Abdomen soft, non-tender, nondistended. Hepatic and splenic margins not palpable. MUSCULOSKELETAL: Extremities without clubbing, cyanosis, or edema. No obvious deformities. NEUROLOGICAL: Awake and alert. No obvious cranial nerve deficits. Motor grossly within normal limits. Five out of 5 muscle strength in the arms and legs. Normal speech. PSYCHIATRIC: Appropriate mood and affect; insight and judgment normal. Assessment and Plan Assessment and Plan ASS: RESPIRATORY FAILURE DEMENTIA ? RECURRENT ASPIRATION PLAN O2 NEEDED ANTIBX PULM. TOILET INCREASE ACTIVITY Daniel Sanchez MD Dec 27, 2016 15:53
--- NOTE | 2016-12-27 16:16 | HHI.PR ---
Subjective Interval History Alert, verbal, oriented to place and name, and denies any complaints at this time, Review of Systems Constitutional Constitutional Remarks Does not ambulate, 10 systems reviewed and otherwise negative Vitals/Results Intake & Output 12/26/16 12/26/16 12/27/16 15:00 23:00 07:00 Intake Total 480 ml 120 ml 120 ml Balance 480 ml 120 ml 120 ml Intake Oral 480 ml 120 ml 120 ml # Voids 2 2 1 # Bowel Movements 0 0 Vital Signs Vital Signs Date Time Temp Pulse Resp B/P Pulse Ox O2 Delivery O2 Flow Rate FiO2 12/27/16 13:44 95 Nasal Cannula 2.00 12/27/16 12:00 97.4 68 18 116/58 95 12/27/16 08:00 97.5 70 20 129/79 96 12/27/16 04:00 97.8 70 20 127/68 96 12/27/16 00:00 98.0 70 20 134/68 96 12/26/16 20:00 97.5 70 20 124/68 97 CBC/BMP: 12/24/16 1112 12/27/16 0659 Lab Results Laboratory Tests Test 12/27/16 06:59 Creatinine 0.82 MG/DL Estimat Glomerular Filtration 66 ML/MIN Rate Physical Exam General General Appearance: Well Developed, Comfortable, Anxious Eyes Eye Exam: Pupils Reactive Ears & Nose Ears & Nose Exam: Nasal Mucosa [place] Throat Throat Exam: Oral Mucosa [place] & Moist Neck Neck Exam: Trachea Midline Pulmonary Resp Exam: Breath Sounds Equal, Crackles Cardiology CV Exam: Normal Sinus Rhythm, Good Perfusion Gastrointestinal/Abdomen GI Exam: Non-Tender, Bowel Sounds Present Musculoskeletal MS Exam: Normal Tone Integumentary Skin Exam: Warm, Dry Neurologic Neuro Exam: Awake, Oriented, Speech Clear, Moving All Extremities Psychiatric Psych Exam: Appropriate Responses VTE Prophylaxis VTE Prophylaxis Meds: Heparin Assessment/Plan Assessment/Plan Assessment Right lower lobe pneumonia Very dense mucous plug versus lung mass right lower lung Severe hypoxemia, especially when sleeping dementia COPD, suspected, prior history of smoking 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
[2016-12-27] MEDS: risperiDONE 1 MG TAB PO SCH (20:00)
[2016-12-27] MEDS: MIRTAZAPINE 15 MG TAB PO SCH (20:02)
[2016-12-27] MEDS: OXYBUTYNIN CHLORIDE 5 MG TAB PO SCH (20:02)
[2016-12-27] MEDS: INSULIN DETEMIR 100 UNITS/ML VIAL SQ SCH (20:06)
[2016-12-27] MEDS ORDERED: DEXTROSE 50% IN WATER 50 ML VIAL(D50) IV PRN (22:30)
[2016-12-27] MEDS ORDERED: GLUCAGON 1 MG/ML VIAL OTHER PRN (22:30)
[2016-12-27] MEDS: INSULIN ASPART SUPPLEMENTAL SCALE SQ SCH (23:42)
[2016-12-28] VITALS (7 sets, daily range): BP systolic 100–133; BP diastolic 54–72; PULSE 70–71; RESP 16–18; TEMP 95.7–97.1; O2SAT 95–97
[2016-12-28] MEDS: LEVOTHYROXINE SODIUM 75 MCG TAB PO SCH (05:11)
[2016-12-28] MEDS: INSULIN ASPART SUPPLEMENTAL SCALE SQ SCH ×4 (05:13→20:49)
[2016-12-28] MEDS: SODIUM CHLORIDE 0.9% FLUSH 10 ML FLUSH IV FLUSH SCH ×2 (08:33→21:00)
--- NOTE | 2016-12-28 08:37 | HHI.PR ---
Subjective Remarks ALERT CONFUSED NO SOB Objective Vital Signs Date Time Temp Pulse Resp B/P Pulse Ox O2 Delivery O2 Flow Rate FiO2 12/28/16 04:00 97.1 70 16 115/59 95 12/28/16 00:00 97.0 70 16 133/72 96 12/27/16 22:23 98 21 12/27/16 20:00 96.1 63 16 133/60 97 12/27/16 16:00 98.1 69 18 127/52 96 12/27/16 13:44 95 Nasal Cannula 2.00 12/27/16 12:00 97.4 68 18 116/58 95 I/O 12/27/16 12/27/16 12/27/16 12/28/16 12/28/16 12/28/16 06:59 14:59 22:59 06:59 14:59 22:59 Intake Total 120 ml 960 ml 120 ml Balance 120 ml 960 ml 120 ml Intake Oral 120 ml 960 ml 120 ml Bladder Scan Volume Amount 184 ml # Voids 1 4 # Bowel Movements 0 Result Diagram: 12/24/16 1112 12/27/16 0659 Objective Remarks GENERAL: SKIN: Warm and dry. HEAD: Atraumatic. Normocephalic. EYES: Pupils equal and round. No scleral icterus. No injection or drainage. ENT: No nasal bleeding or discharge. Mucous membranes pink and moist. NECK: Trachea midline. No JVD. CARDIOVASCULAR: Regular rate and rhythm. RESPIRATORY: No accessory muscle use. Clear to auscultation. Breath sounds equal bilaterally. GASTROINTESTINAL: Abdomen soft, non-tender, nondistended. Hepatic and splenic margins not palpable. MUSCULOSKELETAL: Extremities without clubbing, cyanosis, or edema. No obvious deformities. NEUROLOGICAL: Awake and alert. No obvious cranial nerve deficits. Motor grossly within normal limits. Five out of 5 muscle strength in the arms and legs. Normal speech. PSYCHIATRIC: Appropriate mood and affect; insight and judgment normal. Assessment and Plan Assessment and Plan ASS: RESPIRATORY FAILURE DEMENTIA ? RECURRENT ASPIRATION PLAN O2 NEEDED ANTIBX PULM. TOILET INCREASE ACTIVITY Daniel Sanchez MD Dec 28, 2016 08:37
[2016-12-28] MEDS: PRAVASTATIN SOD 20 MG TAB PO SCH (08:42)
[2016-12-28] MEDS: CEFEPIME INJ 1,000 MG in SODIUM CHLORIDE 0.9% INJ 100 ML IV SCH ×2 (08:42→21:22)
[2016-12-28] MEDS: PANTOPRAZOLE SOD 20 MG DELAYED RELEASE TAB PO SCH (08:42)
[2016-12-28] MEDS: ATENOLOL 25 MG TAB PO SCH (08:42)
[2016-12-28] MEDS: FUROSEMIDE 40 MG TAB PO SCH (08:43)
[2016-12-28] MEDS: LEVOFLOXACIN 750 MG TAB PO SCH (08:43)
[2016-12-28] MEDS: RIVAROXABAN 20 MG TAB PO SCH (08:43)
[2016-12-28] MEDS: PARoxetine HCL 20 MG TAB PO SCH (08:43)
[2016-12-28] MEDS ORDERED: PHARMACY ORDERED LAB ONE (08:45)
[2016-12-28] MEDS: POTASSIUM CHLORIDE 10 MEQ CAP PO SCH ×2 (08:46→21:59)
[2016-12-28] MEDS: amLODIPine BESYLATE 5 MG TAB PO SCH (08:46)
--- NOTE | 2016-12-28 15:03 | HHI.PR ---
Subjective Interval History Alert, verbal, in very good spirits today, no cough, very confused Review of Systems Constitutional Constitutional Remarks Does not ambulate, 10 systems reviewed and otherwise negative Vitals/Results Intake & Output 12/27/16 12/27/16 12/28/16 14:59 22:59 06:59 Intake Total 960 ml 120 ml Balance 960 ml 120 ml Intake Oral 960 ml 120 ml Bladder Scan Volume Amount 184 ml # Voids 4 Vital Signs Vital Signs Date Time Temp Pulse Resp B/P Pulse Ox O2 Delivery O2 Flow Rate FiO2 12/28/16 13:07 96 Room Air 12/28/16 12:45 96.7 70 18 103/55 97 12/28/16 09:21 96 Nasal Cannula 2.00 12/28/16 08:45 96.5 71 18 104/63 95 12/28/16 04:00 97.1 70 16 115/59 95 12/28/16 00:00 97.0 70 16 133/72 96 12/27/16 22:23 98 21 12/27/16 20:00 96.1 63 16 133/60 97 12/27/16 16:00 98.1 69 18 127/52 96 CBC/BMP: 12/24/16 1112 12/27/16 0659 Physical Exam General General Appearance: Well Developed, Comfortable, Anxious Eyes Eye Exam: Pupils Reactive Ears & Nose Ears & Nose Exam: Nasal Mucosa [place] Throat Throat Exam: Oral Mucosa [place] & Moist Neck Neck Exam: Trachea Midline Pulmonary Resp Exam: Breath Sounds Equal, Crackles Cardiology CV Exam: Normal Sinus Rhythm, Good Perfusion Gastrointestinal/Abdomen GI Exam: Non-Tender, Bowel Sounds Present Musculoskeletal MS Exam: Normal Tone Integumentary Skin Exam: Warm, Dry Neurologic Neuro Exam: Awake, Oriented, Speech Clear, Moving All Extremities Psychiatric Psych Exam: Appropriate Responses VTE Prophylaxis VTE Prophylaxis Meds: Heparin Assessment/Plan Assessment/Plan Assessment Right lower lobe pneumonia Very dense mucous plug versus lung mass right lower lung Severe hypoxemia, especially when sleeping dementia COPD, suspected, prior history of smoking Lytic lesions in the cervical spine, question metastatic Management Continue antibiotics Pulmonology following Discussed with costume director site, bronchoscopy early Wednesday morning Continue bronchodilators Continue medications otherwise Discussed with patient, she is demented as baseline Discussed with nurse 35 spent today Norma Berkowitz MD Dec 28, 2016 15:03
[2016-12-28] MEDS: OXYBUTYNIN CHLORIDE 5 MG TAB PO SCH (22:00)
[2016-12-28] MEDS: MIRTAZAPINE 15 MG TAB PO SCH (22:00)
[2016-12-28] MEDS: INSULIN DETEMIR 100 UNITS/ML VIAL SQ SCH (22:02)
[2016-12-28] MEDS: risperiDONE 1 MG TAB PO SCH (22:03)
[2016-12-28] MEDS: DEXTROSE 5% IN WATE 1000ML INJ 1,000 ML IV SCH (23:27)
[2016-12-29 00:21] VITALS: BP_SYST 110; BP_DIAS 6; BP_DIAS 64; PULSE 70; RESP 16; TEMP 96; O2SAT 96
[2016-12-29] MEDS: LEVOTHYROXINE SODIUM 75 MCG TAB PO SCH (05:30)
[2016-12-29] MEDS: INSULIN ASPART SUPPLEMENTAL SCALE SQ SCH ×4 (05:34→20:41)
--- NOTE | 2016-12-29 07:48 | PD.ONC.PN ---
Subjective Subjective Remarks remains pleasantly confused Objective Data Date Time Temp Pulse Resp B/P Pulse Ox O2 Delivery O2 Flow Rate FiO2 12/29/16 00:21 96.0 70 16 110/64 96 12/28/16 21:05 Room Air 12/28/16 20:00 95.7 70 16 120/62 97 12/28/16 16:00 96.5 71 18 100/54 96 12/28/16 13:07 96 Room Air 12/28/16 12:45 96.7 70 18 103/55 97 12/28/16 09:21 96 Nasal Cannula 2.00 12/28/16 08:45 96.5 71 18 104/63 95 Result Diagram: 12/27/16 0659 Laboratory Results serum protein electrophoresis show no monoclonal band making myeloma less likely in spite of lytic appearing lesions in cervical spine. Administered Medications Medications (Trade) Dose Ordered Sig/Rehan Route PRN Reason Start Time Stop Time Status Last Admin Dose Admin Sodium Chloride (NS Flush) 2 ml BID IV FLUSH 12/23/16 21:00 12/27/16 20:03 Pantoprazole Sodium (Protonix) 20 mg DAILY PO 12/24/16 09:00 12/28/16 08:42 Alprazolam (Xanax) 0.25 mg Q8HR PRN PO ANXIETY 12/23/16 19:30 12/25/16 22:13 Amlodipine Besylate (Norvasc) 5 mg DAILY PO 12/24/16 09:00 12/27/16 08:53 Atenolol (Tenormin) 12.5 mg DAILY PO 12/24/16 09:00 12/28/16 08:42 Furosemide (Lasix) 40 mg DAILY PO 12/24/16 09:00 12/28/16 08:43 Insulin Detemir (Levemir Inj) 10 units HS SQ 12/23/16 21:00 12/28/16 22:02 Levothyroxine Sodium (Synthroid) 75 mcg DAILY@06 PO 12/24/16 06:00 12/29/16 05:30 Mirtazapine (Remeron) 7.5 mg HS PO 12/23/16 21:00 12/28/16 22:00 Oxybutynin Chloride (Ditropan) 10 mg HS PO 12/23/16 21:00 12/28/16 22:00 Paroxetine HCl (Paxil) 20 mg DAILY PO 12/24/16 09:00 12/28/16 08:43 Potassium Chloride (KCl) 10 meq BID PO 12/23/16 21:00 12/28/16 21:59 Risperidone (risperDAL) 1 mg HS PO 12/23/16 21:00 12/28/16 22:03 Rivaroxaban (Xarelto) 20 mg DAILY PO 12/24/16 09:00 12/28/16 08:43 Pravastatin Sodium (Pravachol) 20 mg DAILY PO CM 12/24/16 09:00 12/28/16 08:42 Miscellaneous 1 ea 1 ea UNSCH PRN OTHER SEE LABEL COMMENTS 12/23/16 21:45 12/25/16 08:58 Dextrose 1,000 ml @ 20 mls/hr Q24H IV 12/24/16 00:00 12/28/16 23:27 Cefepime HCl/ Sodium Chloride (Maxipime Inj/NS Inj) 100 ml @ 200 mls/hr Q12H IV 12/25/16 08:00 12/28/16 21:22 Levofloxacin (Levaquin) 750 mg DAILY PO 12/28/16 09:00 12/28/16 08:43 Dextrose (D50w (Vial) Inj) 50 ml UNSCH PRN IV HYPOGLYCEMIA-SEE COMMENTS 12/27/16 22:30 12/28/16 03:41 Objective Remarks GENERAL: gaunt and confused SKIN: Warm and dry. HEAD: Normocephalic. EYES: No scleral icterus. No injection or drainage. NECK: Supple, trachea midline. No JVD or lymphadenopathy. LYMPHATIC: No adenopathy. CARDIOVASCULAR: Regular rate and rhythm without murmurs. RESPIRATORY: Breath sounds equal bilaterally. No accessory muscle use. GASTROINTESTINAL: Abdomen soft, non-tender, nondistended. EXTREMITIES: No cyanosis, or edema. MUSCULOSKELETAL: muscle wasting NEUROLOGICAL: oriented x1 generalized weakness. PSYCHIATRIC: severe dementia.. Assessment/Plan Assessment 1: serum protein electrophoresis shows no monoclonal protein making myeloma unlikely. No further workup planned for malignancy and this was discussed with son last week. Patient may be undergoing bronchoscopy for inspissated secretions in main stem bronchus versus tumor but will defer this to pulmonary and son. Her ultimate prognosis will be determined primarily by her dementia. Lei Kessler MD Dec 29, 2016 07:48
[2016-12-29 07:50] VITALS: BP 136/65; PULSE 69; RESP 20; TEMP 96; O2SAT 98
[2016-12-29] MEDS: SODIUM CHLORIDE 0.9% FLUSH 10 ML FLUSH IV FLUSH SCH ×2 (08:02→20:34)
[2016-12-29] MEDS: CEFEPIME INJ 1,000 MG in SODIUM CHLORIDE 0.9% INJ 100 ML IV SCH ×2 (08:55→20:34)
[2016-12-29] MEDS: LEVOFLOXACIN 750 MG TAB PO SCH (08:55)
[2016-12-29] MEDS: RIVAROXABAN 20 MG TAB PO SCH (08:55)
[2016-12-29] MEDS: amLODIPine BESYLATE 5 MG TAB PO SCH (08:56)
[2016-12-29] MEDS: PANTOPRAZOLE SOD 20 MG DELAYED RELEASE TAB PO SCH (08:56)
[2016-12-29] MEDS: FUROSEMIDE 40 MG TAB PO SCH (08:56)
[2016-12-29] MEDS: PRAVASTATIN SOD 20 MG TAB PO SCH (08:56)
[2016-12-29] MEDS: ATENOLOL 25 MG TAB PO SCH (08:56)
[2016-12-29] MEDS: POTASSIUM CHLORIDE 10 MEQ CAP PO SCH ×2 (08:56→20:40)
[2016-12-29] MEDS: PARoxetine HCL 20 MG TAB PO SCH (08:56)
[2016-12-29 11:30] VITALS: BP 136/70; PULSE 70; RESP 20; TEMP 96.9; O2SAT 98
[2016-12-29] MEDS ORDERED: BISACODYL 10 MG SUPP RECTAL ONE (15:00)
[2016-12-29 15:50] VITALS: BP 119/61; PULSE 70; RESP 20; TEMP 96.6; O2SAT 96
--- NOTE | 2016-12-29 15:59 | HHI.PR ---
Subjective Remarks ALERT CONFUSED NO SOB Objective Vital Signs Date Time Temp Pulse Resp B/P Pulse Ox O2 Delivery O2 Flow Rate FiO2 12/29/16 11:30 96.9 70 20 136/70 98 12/29/16 08:45 Room Air 12/29/16 07:50 96.0 69 20 136/65 98 12/29/16 00:21 96.0 70 16 110/64 96 12/28/16 21:05 Room Air 12/28/16 20:00 95.7 70 16 120/62 97 12/28/16 16:00 96.5 71 18 100/54 96 I/O 12/28/16 12/28/16 12/28/16 12/29/16 12/29/16 12/29/16 07:00 15:00 23:00 07:00 15:00 23:00 Intake Total 120 ml 300 ml 400 ml 1078 ml Balance 120 ml 300 ml 400 ml 1078 ml Intake Oral 120 ml 300 ml 100 ml 40 ml IV Total 300 ml 1038 ml Bladder Scan Volume Amount 184 ml # Voids 2 1 2 # Bowel Movements 0 Result Diagram: 12/27/16 0659 Objective Remarks GENERAL: SKIN: Warm and dry. HEAD: Atraumatic. Normocephalic. EYES: Pupils equal and round. No scleral icterus. No injection or drainage. ENT: No nasal bleeding or discharge. Mucous membranes pink and moist. NECK: Trachea midline. No JVD. CARDIOVASCULAR: Regular rate and rhythm. RESPIRATORY: No accessory muscle use. Clear to auscultation. Breath sounds equal bilaterally. GASTROINTESTINAL: Abdomen soft, non-tender, nondistended. Hepatic and splenic margins not palpable. MUSCULOSKELETAL: Extremities without clubbing, cyanosis, or edema. No obvious deformities. NEUROLOGICAL: Awake and alert. No obvious cranial nerve deficits. Motor grossly within normal limits. Five out of 5 muscle strength in the arms and legs. Normal speech. PSYCHIATRIC: Appropriate mood and affect; insight and judgment normal. Assessment and Plan Assessment and Plan ASS: RESPIRATORY FAILURE DEMENTIA ? RECURRENT ASPIRATION PLAN O2 NEEDED ANTIBX PULM. TOILET INCREASE ACTIVITY F/U CXRAY TALKED WITH SON AT LENGTH OVER TH PHONE , LEANING TOWARDS COMFORT CARE Daniel Sanchez MD Dec 29, 2016 15:59
--- NOTE | 2016-12-29 16:38 | RADRPT ---
EXAM DATE/TIME: 12/29/2016 16:03 [facility] COMPARISON: CHEST SINGLE AP, December 23, 2016, 8:51. INDICATIONS : Shortness of breath, evaluate for pneumonia. MEDICAL HISTORY : None. SURGICAL HISTORY : Pacemaker. CABG. ENCOUNTER: Subsequent ACUITY: 2 weeks PAIN SCORE: 0/10 LOCATION: Bilateral chest FINDINGS: A single view of the chest demonstrates the lungs to be symmetrically aerated without evidence of mas s, infiltrate or effusion other than minimal infiltrate right lung base unchanged. There is left subc lavian bipolar pacer in good position. There 7 intact sternal wires. The cardiomediastinal contours a re unremarkable. Osseous structures are intact. CONCLUSION: Minimal airspace disease right lung base could be atelectasis. Pacemaker in good position Alonzo Goetz MD on December 29, 2016 at 16:36 Board Certified Radiologist. This report was verified electronically.
--- NOTE | 2016-12-29 17:34 | HHI.PR ---
Subjective Interval History Alert, verbal, confused, denies complaints Review of Systems Constitutional Constitutional Remarks Does not ambulate, 10 systems reviewed and otherwise negative Vitals/Results Intake & Output 12/28/16 12/28/16 12/29/16 15:00 23:00 07:00 Intake Total 300 ml 400 ml Balance 300 ml 400 ml Intake Oral 300 ml 100 ml IV Total 300 ml # Voids 2 1 Vital Signs Vital Signs Date Time Temp Pulse Resp B/P Pulse Ox O2 Delivery O2 Flow Rate FiO2 12/29/16 11:30 96.9 70 20 136/70 98 12/29/16 08:45 Room Air 12/29/16 07:50 96.0 69 20 136/65 98 12/29/16 00:21 96.0 70 16 110/64 96 12/28/16 21:05 Room Air 12/28/16 20:00 95.7 70 16 120/62 97 CBC/BMP: 12/27/16 0659 Physical Exam General General Appearance: Well Developed, Comfortable, Anxious Eyes Eye Exam: Pupils Reactive Ears & Nose Ears & Nose Exam: Nasal Mucosa [place] Throat Throat Exam: Oral Mucosa [place] & Moist Neck Neck Exam: Trachea Midline Pulmonary Resp Exam: Breath Sounds Equal, Crackles Resp Remarks Crackles on the right base Cardiology CV Exam: Normal Sinus Rhythm, Good Perfusion Gastrointestinal/Abdomen GI Exam: Non-Tender, Bowel Sounds Present Musculoskeletal MS Exam: Normal Tone Integumentary Skin Exam: Warm, Dry Neurologic Neuro Exam: Awake, Oriented, Speech Clear, Moving All Extremities Psychiatric Psych Exam: Appropriate Responses VTE Prophylaxis VTE Prophylaxis Meds: Heparin Assessment/Plan Assessment/Plan Assessment Right lower lobe pneumonia Very dense mucous plug versus lung mass right lower lung Severe hypoxemia, especially when sleeping dementia COPD, suspected, prior history of smoking 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
[2016-12-29] MEDS: MIRTAZAPINE 15 MG TAB PO SCH (20:34)
[2016-12-29] MEDS: risperiDONE 1 MG TAB PO SCH (20:34)
[2016-12-29] MEDS: OXYBUTYNIN CHLORIDE 5 MG TAB PO SCH (20:34)
[2016-12-29] MEDS: INSULIN DETEMIR 100 UNITS/ML VIAL SQ SCH (20:42)
[2016-12-29 21:30] VITALS: BP 137/64; PULSE 69; RESP 18; TEMP 97; O2SAT 98
[2016-12-29] MEDS: DEXTROSE 5% IN WATE 1000ML INJ 1,000 ML IV SCH (23:27)
[2016-12-30 04:00] VITALS: BP 124/67; PULSE 69; RESP 16; TEMP 97.3; O2SAT 98
[2016-12-30] MEDS: LEVOTHYROXINE SODIUM 75 MCG TAB PO SCH (06:29)
[2016-12-30] MEDS: INSULIN ASPART SUPPLEMENTAL SCALE SQ SCH ×4 (06:29→20:50)
[2016-12-30 07:50] VITALS: BP 148/73; PULSE 70; RESP 16; TEMP 96.9; O2SAT 98
[2016-12-30] MEDS: PANTOPRAZOLE SOD 20 MG DELAYED RELEASE TAB PO SCH (08:47)
[2016-12-30] MEDS: CEFEPIME INJ 1,000 MG in SODIUM CHLORIDE 0.9% INJ 100 ML IV SCH (08:47)
[2016-12-30] MEDS: PARoxetine HCL 20 MG TAB PO SCH (08:48)
[2016-12-30] MEDS: PRAVASTATIN SOD 20 MG TAB PO SCH (08:48)
[2016-12-30] MEDS: LEVOFLOXACIN 750 MG TAB PO SCH (08:48)
[2016-12-30] MEDS: RIVAROXABAN 20 MG TAB PO SCH (08:48)
[2016-12-30] MEDS: amLODIPine BESYLATE 5 MG TAB PO SCH (08:48)
[2016-12-30] MEDS: SODIUM CHLORIDE 0.9% FLUSH 10 ML FLUSH IV FLUSH SCH ×2 (08:48→21:12)
[2016-12-30] MEDS: POTASSIUM CHLORIDE 10 MEQ CAP PO SCH ×2 (08:48→20:50)
[2016-12-30] MEDS: FUROSEMIDE 40 MG TAB PO SCH (08:48)
[2016-12-30] MEDS: ATENOLOL 25 MG TAB PO SCH (08:48)
[2016-12-30 11:46] VITALS: BP 119/59; PULSE 70; RESP 20; TEMP 97.2; O2SAT 96
--- NOTE | 2016-12-30 13:54 | HHI.PR ---
Subjective Interval History Alert, verbal, denies complaints, she is being spoon fed by the nurse, no distress Review of Systems Constitutional Constitutional Remarks Does not ambulate, 10 systems reviewed and otherwise negative Vitals/Results Intake & Output 12/29/16 12/29/16 12/30/16 15:00 23:00 07:00 Intake Total 1078 ml 120 ml Balance 1078 ml 120 ml Intake Oral 40 ml 120 ml IV Total 1038 ml # Voids 2 1 2 # Bowel Movements 0 1 1 Vital Signs Vital Signs Date Time Temp Pulse Resp B/P Pulse Ox O2 Delivery O2 Flow Rate FiO2 12/30/16 11:46 97.2 70 20 119/59 96 12/30/16 08:45 Room Air 12/30/16 07:50 96.9 70 16 148/73 98 12/30/16 04:00 97.3 69 16 124/67 98 12/29/16 21:30 97.0 69 18 137/64 98 12/29/16 20:35 Room Air 12/29/16 15:50 96.6 70 20 119/61 96 CBC/BMP: 12/27/16 0659 Physical Exam General General Appearance: Well Developed, Comfortable, Anxious Eyes Eye Exam: Pupils Reactive Ears & Nose Ears & Nose Exam: Nasal Mucosa [place] Throat Throat Exam: Oral Mucosa [place] & Moist Neck Neck Exam: Trachea Midline Pulmonary Resp Exam: Breath Sounds Equal, Crackles Resp Remarks Crackles on the right base Cardiology CV Exam: Normal Sinus Rhythm, Good Perfusion Gastrointestinal/Abdomen GI Exam: Non-Tender, Bowel Sounds Present Musculoskeletal MS Exam: Normal Tone Integumentary Skin Exam: Warm, Dry Neurologic Neuro Exam: Awake, Oriented, Speech Clear, Moving All Extremities Psychiatric Psych Exam: Appropriate Responses VTE Prophylaxis VTE Prophylaxis Meds: Heparin Assessment/Plan Assessment/Plan Assessment Right lower lobe pneumonia, clinically improved Very dense mucous plug versus lung mass right lower lung hypoxemia, especially when sleeping dementia COPD, suspected, prior history of smoking 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
--- NOTE | 2016-12-30 14:21 | HHI.HCPN ---
Reason for visit a. To assist with evaluation and management of symptoms including:dyspnea; confusion b. To assist medical decision maker(s) with: better understanding of current medical conditions; weighing benefits/burdens of medical treatment options; making medical treatment decisions. . Subjective/Interval History Patient awakens easily to voice. Confused and cannot converse , but able to say "no" when asked about pain and shortness of breath. Nursing pain level score is "0." Afebrile. VSS. 02 sats in upper 90s on RA. No new lab,micro CXR 12/29/16 ---> Minimal airspace disease right lung base -- possible atelectasis. . Family/friend interactions Spoke with son on phone for over 30 minutes. He has still not completed hospice enrollment forms. He continues to demonstrate a great deal of ambivalence about goals. We spoke about hospice care, bronchoscopy, patients stated goals, her living will, who would care for her at the detention, how we would plan to treat UTIs and respiratory infections, etc. My understanding of the conclusion of this lengthy conversation was the following: * He would enroll his mother in hospice * she would return to her detention under hospice care * Hospice could certainly wear their badges and uniforms but would not talk to patient about hospice, , dying unless the patient enquired. * If she developed UTI or respiratory infection, hospice would try to treat it with an appropriate antibiotic. * If she were not able to take and oral antibiotic or an oral antibiotic failed , his plan would still be to keep her comfortable and in place, but would want to be told about her condition so I might have the option, if he felt she were suffering to send her back to the hospital. * We discussed how if she were unable to take oral antibiotics or was failing oral antibiotics, a trip to the hospital for IV antibiotics would probably only serve to prolong her dying process rather than get her better and that she did not want that as stated in her living will. . Advance Directives Living Will: Copy in medical record Health Care Surrogate: Copy in medical record Durable Power of Candle Wicker: Copy in medical record Objective Vital Signs Date Time Temp Pulse Resp B/P Pulse Ox O2 Delivery O2 Flow Rate FiO2 12/30/16 11:46 97.2 70 20 119/59 96 12/30/16 08:45 Room Air 12/30/16 07:50 96.9 70 16 148/73 98 12/30/16 04:00 97.3 69 16 124/67 98 12/29/16 21:30 97.0 69 18 137/64 98 12/29/16 20:35 Room Air 12/29/16 15:50 96.6 70 20 119/61 96 Intake & Output 12/30/16 12/30/16 07:00 19:00 Intake Total 120 ml Balance 120 ml Intake Oral 120 ml # Voids 3 # Bowel Movements 2 . Physical Exam CONSTITUTIONAL/GENERAL: This is an elderly, frail patient, in no apparent distress, in restraints. TUBES/LINES/DRAINS: peripheral IV; SCDs SKIN: No jaundice, rashes, or lesions.upper extremities has ecchymosis. Not diaphoretic. HEAD: Atraumatic. Normocephalic. EYES: Pupils equal and round. Extraocular motions intact. No scleral icterus. No injection or drainage. Fundi not examined. ENT: Nose without bleeding or purulent drainage. Throat without visible erythema, exudates, masses, or lesions. NECK: Trachea midline. Supple, nontender. CARDIOVASCULAR: Regular rate and rhythm without murmurs, gallops, or rubs. No JVD. RESPIRATORY/CHEST: Symmetric, unlabored respirations. Few faint ronchi bilaterally. GASTROINTESTINAL: Abdomen soft, non-tender, nondistended. No hepato-splenomegaly , or palpable masses. No guarding. Bowel sounds present. GENITOURINARY: Without palpable bladder distension. MUSCULOSKELETAL: Extremities without clubbing, cyanosis, or edema. No calf tenderness. No mottling.. LYMPHATICS: Not examined. NEUROLOGICAL: Awake. Answers a few simple yes/no questions. Moves extremities. Confused. PSYCHIATRIC: no apparent hallucinations or other psychotic thought process. . Diagnostic Tests Laboratory Laboratory Tests Test 12/24/16 12/27/16 11:12 06:59 Total Bilirubin 0.5 MG/DL Direct Bilirubin 0.1 MG/DL Indirect Bilirubin 0.4 MG/DL Aspartate Amino Transf 30 U/L (AST/SGOT) Alanine Aminotransferase 24 U/L (ALT/SGPT) Alkaline Phosphatase 55 U/L Total Protein 7.9 GM/DL Albumin 3.59 GM/DL Albumin/Globulin Ratio 0.83 Nwtoh-5-Oymikdeot 0.33 GM/DL Jjyat-6-Ijhwqbogz 1.11 GM/DL Beta Globulins 0.96 GM/DL Gamma Globulins 1.91 GM/DL Electrophoresis Pathologist Comment Creatinine 0.82 MG/DL Estimat Glomerular Filtration 66 ML/MIN Rate . Result Diagram: 12/27/16 0659 Imaging Last Impressions Chest X-Ray 12/29/16 0000 Signed Impressions: Service Date/Time: Thursday, December 29, 2016 16:03 - CONCLUSION: Minimal airspace disease right lung base could be atelectasis. Pacemaker in good position Alonzo Goetz MD Abdomen/Pelvis CT 12/24/16 1734 Signed Impressions: Service Date/Time: , December 24, 2016 18:04 - CONCLUSION: 1. Fecal impaction. 2. Tiny nonobstructing left renal stone. Johny Soria MD Chest CT 12/24/16 0000 Signed Impressions: Service Date/Time: , December 24, 2016 18:03 - CONCLUSION: 1. Endobronchial mass versus inspissated mucous right main bronchus. 2. Bilateral parenchymal consolidations and infiltrates worse in right lower lobe. Pneumonia is of primary consideration. Johny Soria MD . Assessment and Plan Disease Oriented Problem List: (1) Hypoxemia Comment: resolved. Chest X ray is good. (2) Dementia Comment: moderate dementia, not FAST scroe of 7C or endstage at this point. (3) Endobronchial mass Comment: Mass vs inspissated mucous in right mainstem bronchus. . (4) multiple lucencies on C-spine CT scan, R/O myeloma Comment: Lab (e.g. SPE) does not suggest myeloma. ? mets? . (5) CAD (6) CHF, mild, recurrent (7) Failure to thrive in adult (8) HTN (hypertension) (9) spinal stenosis (10) hyperlipidemia (11) GERD (12) degenerative arthritis (13) history of CVA (14) Recurrent UTI (urinary tract infection) (15) Recurrent pneumonia Comment: Possible recurrent small aspiration. . Symptom Scale: (1) dyspnea 0-10 Scale: Unable to quantify (2) Confusion 0-10 Scale: Unable to quantify (3) Dysphagia 0-10 Scale: Unable to quantify Comment: speech therapy has recommended purees and nectar consistency liquids. . Pertinent Non-Medical Issues Psychosocial: No local psychosocial support. son lives in [place] and does not routinely visit. Spiritual: Church. Legal: [place] will and health care surrogate designation in record. Ethical issues impacting care: Pt is incapacitated to make her own medical decisions. She is not likely to regain capacity. . Important Contacts Son: Miguel Grimaldo Other: [phone] Work ([employer]): [phone] . Prognosis This patient's prognosis is guarded. She has moderate dementia, a history of recurrent UTI, and now has had this episode of bilateral pneumonia with hypoxic respiratory failure. She has multiple bony lucencies -- lab does not support myeloma so this may be metastatic disease. She is profoundly weak , failing to thrive, and appears unable to remain out of the hospital. She is considered medically appropriate for hospice services once the goals become comfort oriented. . Code Status: No Code Plan ==Code Status: NO CODE == Goals of care. Son-- Miguel -- has been very ambivalent about goals of medical treatment for the patient and continues to ask multiple questions. At times he suggests he just wants comfort care, at other times he suggest he would want everything done short of resuscitation to allow her to live longer. As of 12/30/16, goals appear to be comfort and hospice appropriate. Miguel has had long phone conversations with Woo Dennis Wahba, Chan, Alden, and myself. he has had long conversations with hospice nurses and movie producer. == Decision making: Patient is incpacitated. It is not thought she will regain capacity. Health care decision maker is her son -- Miguel Grimaldo. ==Dyspnea: Much improved. Now maintaining 02 sats on RA. Patient with known mass vs inspissated mucous plug right mainstem bronchus. No further recommendations at this time. == Confusion: Underlying dementia complicated by a strange environment and illness == Dysphagia: Now on pureed diet with nectar consistency fluids. Await to see if this prevents aspiration. . == Generalized weakness == Disposition: Patient will likely be discharged back to her nursing facility within 24 hours. Hospice will enroll patient as soon as son signs and forwards the paperwork. My lengthy conversation with the son today resulted in the following understanding: * He would enroll his mother in hospice * she would return to her detention under hospice care * Hospice could certainly wear their badges and uniforms but would not talk to the patient about hospice, , dying unless the patient enquired. * If she developed a UTI or respiratory infection, hospice would try to treat it with an appropriate oral antibiotic. * If she were not able to take an oral antibiotic or an oral antibiotic failed , his plan would still be to keep her comfortable and in place, but would want to be told about her condition so he might have the option, if he felt she were suffering, to send her back to the hospital. * We discussed how if she were unable to take oral antibiotics or was failing oral antibiotics, a trip to the hospital for IV antibiotics would probably only serve to prolong her dying process rather than get her better and that she did not want that as stated in her living will. == Palliative care will continue to follow to assist with symptom management and further clarify goals of medical treatment as the clinical course evolves. . Time Spent Total Floor Time (mins): 50 (Total floor time included chart review, patient exam, phone call to health care surrogate, discussion of case with hospice, documentation. ) Face to Face Time (mins): 15 >50% Counseling/Coord of Care: Yes Attestation To help prompt me to consider important information that might be impacting today's encounter and assessment, information from prior notes written by myself or my colleagues may have been "brought forward" into today's note. My signature on this note, however, is an attestation that I personally performed the exam, history, and/or decision-making noted today, and, unless otherwise indicated, the interactions with patient, family, and staff as well as the review of records all occurred today. I also attest that the listed assessment and stated plan reflect my best clinical judgment today based on the combination of historical information, prior notes, and today's exam/ interactions. When time spent is documented, it refers only to time spent today by the signer, or if indicated, combined time spent today by collaborating physician/nurse practitioner. . Pierre Elaine MD Dec 30, 2016 14:21
--- NOTE | 2016-12-30 15:39 | HHI.PR ---
Subjective Remarks ALERT CONFUSED NO SOB Objective Vital Signs Date Time Temp Pulse Resp B/P Pulse Ox O2 Delivery O2 Flow Rate FiO2 12/30/16 11:46 97.2 70 20 119/59 96 12/30/16 08:45 Room Air 12/30/16 07:50 96.9 70 16 148/73 98 12/30/16 04:00 97.3 69 16 124/67 98 12/29/16 21:30 97.0 69 18 137/64 98 12/29/16 20:35 Room Air 12/29/16 15:50 96.6 70 20 119/61 96 I/O 12/29/16 12/29/16 12/29/16 12/30/16 12/30/16 12/30/16 07:00 15:00 23:00 07:00 15:00 23:00 Intake Total 400 ml 1078 ml 120 ml Balance 400 ml 1078 ml 120 ml Intake Oral 100 ml 40 ml 120 ml IV Total 300 ml 1038 ml # Voids 1 2 1 2 # Bowel Movements 0 1 1 Result Diagram: 12/27/16 0659 Objective Remarks GENERAL: SKIN: Warm and dry. HEAD: Atraumatic. Normocephalic. EYES: Pupils equal and round. No scleral icterus. No injection or drainage. ENT: No nasal bleeding or discharge. Mucous membranes pink and moist. NECK: Trachea midline. No JVD. CARDIOVASCULAR: Regular rate and rhythm. RESPIRATORY: No accessory muscle use. Clear to auscultation. Breath sounds equal bilaterally. GASTROINTESTINAL: Abdomen soft, non-tender, nondistended. Hepatic and splenic margins not palpable. MUSCULOSKELETAL: Extremities without clubbing, cyanosis, or edema. No obvious deformities. NEUROLOGICAL: Awake and alert. No obvious cranial nerve deficits. Motor grossly within normal limits. Five out of 5 muscle strength in the arms and legs. Normal speech. PSYCHIATRIC: Appropriate mood and affect; insight and judgment normal. Assessment and Plan Assessment and Plan ASS: RESPIRATORY FAILURE DEMENTIA ? RECURRENT ASPIRATION PLAN O2 NEEDED ANTIBX PULM. TOILET INCREASE ACTIVITY WILL BE DISCHARGED WITH HOSPICE CARE WILL SIGN OFF PLEASE CALL PRN F/U CXRAY TALKED WITH SON AT LENGTH OVER TH PHONE , LEANING TOWARDS COMFORT CARE Daniel Sanchez MD Dec 30, 2016 15:39
[2016-12-30 15:50] VITALS: BP 121/58; PULSE 70; RESP 20; TEMP 97.3; O2SAT 97
[2016-12-30 20:00] VITALS: BP 117/59; PULSE 70; RESP 18; TEMP 97.6; O2SAT 96
[2016-12-30] MEDS: MIRTAZAPINE 15 MG TAB PO SCH (20:50)
[2016-12-30] MEDS: OXYBUTYNIN CHLORIDE 5 MG TAB PO SCH (20:50)
[2016-12-30] MEDS: CEFUROXIME AXETIL 250 MG TAB PO SCH (20:54)
[2016-12-30] MEDS: risperiDONE 1 MG TAB PO SCH (20:59)
[2016-12-30] MEDS: INSULIN DETEMIR 100 UNITS/ML VIAL SQ SCH (21:12)
[2016-12-30] MEDS: DEXTROSE 5% IN WATE 1000ML INJ 1,000 ML IV SCH (23:27)
[2016-12-31] VITALS: BP 119/59; PULSE 69; RESP 17; TEMP 97.1; O2SAT 94
[2016-12-31 04:00] VITALS: BP 119/57; PULSE 69; RESP 16; TEMP 96.9; O2SAT 92
[2016-12-31] MEDS: INSULIN ASPART SUPPLEMENTAL SCALE SQ SCH ×3 (05:58→16:00)
[2016-12-31] MEDS: LEVOTHYROXINE SODIUM 75 MCG TAB PO SCH (06:20)
[2016-12-31 07:30] VITALS: BP 131/71; PULSE 71; RESP 20; TEMP 96.1; O2SAT 95
[2016-12-31] MEDS: SODIUM CHLORIDE 0.9% FLUSH 10 ML FLUSH IV FLUSH SCH (08:35)
[2016-12-31] MEDS: FUROSEMIDE 40 MG TAB PO SCH (10:15)
[2016-12-31] MEDS: CEFUROXIME AXETIL 250 MG TAB PO SCH (10:15)
[2016-12-31] MEDS: PARoxetine HCL 20 MG TAB PO SCH (10:15)
[2016-12-31] MEDS: ATENOLOL 25 MG TAB PO SCH (10:15)
[2016-12-31] MEDS: PRAVASTATIN SOD 20 MG TAB PO SCH (10:15)
[2016-12-31] MEDS: amLODIPine BESYLATE 5 MG TAB PO SCH (10:15)
[2016-12-31] MEDS: PANTOPRAZOLE SOD 20 MG DELAYED RELEASE TAB PO SCH (10:15)
[2016-12-31] MEDS: POTASSIUM CHLORIDE 10 MEQ CAP PO SCH (10:15)
[2016-12-31] MEDS: LEVOFLOXACIN 750 MG TAB PO SCH (10:15)
[2016-12-31] MEDS: RIVAROXABAN 20 MG TAB PO SCH (10:15)
[2016-12-31 11:30] VITALS: BP 117/65; PULSE 101; RESP 20; TEMP 98.1; O2SAT 98
[2016-12-31] MEDS ORDERED: HYDR-3516 PO (12:41)
[2016-12-31] MEDS ORDERED: Cefuroxime PO (12:41)
[2016-12-31] MEDS ORDERED: Xanax PO (12:41)
--- NOTE | 2016-12-31 15:22 | HHI.PR ---
Subjective Remarks ALERT CONFUSED NO SOB Objective Vital Signs Date Time Temp Pulse Resp B/P Pulse Ox O2 Delivery O2 Flow Rate FiO2 12/31/16 11:30 98.1 101 20 117/65 98 12/31/16 08:35 92 Room Air 21 12/31/16 07:30 96.1 71 20 131/71 95 12/31/16 04:00 96.9 69 16 119/57 92 12/31/16 00:00 97.1 69 17 119/59 94 12/30/16 21:15 Room Air 12/30/16 20:00 97.6 70 18 117/59 96 12/30/16 19:54 21 12/30/16 15:50 97.3 70 20 121/58 97 I/O 12/30/16 12/30/16 12/30/16 12/31/16 12/31/16 12/31/16 07:00 15:00 23:00 07:00 15:00 23:00 Intake Total 340 ml 72 ml Balance 340 ml 72 ml Intake Oral 340 ml IV Total 72 ml # Voids 2 2 1 # Bowel Movements 1 0 Result Diagram: 12/27/16 0659 Objective Remarks GENERAL: SKIN: Warm and dry. HEAD: Atraumatic. Normocephalic. EYES: Pupils equal and round. No scleral icterus. No injection or drainage. ENT: No nasal bleeding or discharge. Mucous membranes pink and moist. NECK: Trachea midline. No JVD. CARDIOVASCULAR: Regular rate and rhythm. RESPIRATORY: No accessory muscle use. Clear to auscultation. Breath sounds equal bilaterally. GASTROINTESTINAL: Abdomen soft, non-tender, nondistended. Hepatic and splenic margins not palpable. MUSCULOSKELETAL: Extremities without clubbing, cyanosis, or edema. No obvious deformities. NEUROLOGICAL: Awake and alert. No obvious cranial nerve deficits. Motor grossly within normal limits. Five out of 5 muscle strength in the arms and legs. Normal speech. PSYCHIATRIC: Appropriate mood and affect; insight and judgment normal. Assessment and Plan Assessment and Plan ASS: RESPIRATORY FAILURE DEMENTIA ? RECURRENT ASPIRATION PLAN O2 NEEDED ANTIBX PULM. TOILET INCREASE ACTIVITY WILL BE DISCHARGED WITH HOSPICE CARE WILL SIGN OFF PLEASE CALL PRN F/U CXRAY TALKED WITH SON AT LENGTH OVER TH PHONE , LEANING TOWARDS COMFORT CARE Daniel Sanchez MD Dec 31, 2016 15:22
[2016-12-31 15:50] VITALS: BP 115/58; PULSE 70; RESP 20; TEMP 96.6; O2SAT 97
--- NOTE | 2016-12-31 18:33 | HHI.PR ---
Subjective Interval History Alert, verbal, incoherent, no visible distress, denies complaints Review of Systems Constitutional Constitutional Remarks Does not ambulate, 10 systems reviewed and otherwise negative Vitals/Results Intake & Output 12/30/16 12/30/16 12/31/16 14:59 22:59 06:59 Intake Total 340 ml Balance 340 ml Intake Oral 340 ml # Voids 2 1 # Bowel Movements 0 Vital Signs Vital Signs Date Time Temp Pulse Resp B/P Pulse Ox O2 Delivery O2 Flow Rate FiO2 12/31/16 15:50 96.6 70 20 115/58 97 12/31/16 11:30 98.1 101 20 117/65 98 12/31/16 08:35 92 Room Air 21 12/31/16 07:30 96.1 71 20 131/71 95 12/31/16 04:00 96.9 69 16 119/57 92 12/31/16 00:00 97.1 69 17 119/59 94 12/30/16 21:15 Room Air 12/30/16 20:00 97.6 70 18 117/59 96 12/30/16 19:54 21 CBC/BMP: 12/27/16 0659 Physical Exam General General Appearance: Well Developed, Comfortable, Anxious Eyes Eye Exam: Pupils Reactive Ears & Nose Ears & Nose Exam: Nasal Mucosa [place] Throat Throat Exam: Oral Mucosa [place] & Moist Neck Neck Exam: Trachea Midline Pulmonary Resp Exam: Breath Sounds Equal, Crackles Resp Remarks Crackles on the right base Cardiology CV Exam: Normal Sinus Rhythm, Good Perfusion Gastrointestinal/Abdomen GI Exam: Non-Tender, Bowel Sounds Present Musculoskeletal MS Exam: Normal Tone Integumentary Skin Exam: Warm, Dry Neurologic Neuro Exam: Awake, Oriented, Speech Clear, Moving All Extremities Psychiatric Psych Exam: Appropriate Responses VTE Prophylaxis VTE Prophylaxis Meds: Heparin Assessment/Plan Assessment/Plan Assessment Right lower lobe pneumonia, clinically improved Very dense mucous plug versus lung mass right lower lung reported on noncontrast CT of the chest hypoxemia, especially when sleeping dementia COPD, suspected, prior history of smoking Lytic lesions in the cervical spine, question metastatic Management Continue antibiotics by mouth Pulmonology following Palliative care following Discharge to [facility] Continue bronchodilators as needed Continue medications otherwise Discussed with patient, she is demented as baseline Discussed with nurse Discharge Minutes: 40 Norma Berkowitz MD Dec 31, 2016 18:33
== END 2016-12-31 18:15 | DRG 190 ==
LOC: NEPE 08:31 → NEDA 12:03 → INTOOBSV 12:03 → NEPHCDU 14:19 → OBSVTOIN 12-25 07:54 → HOCB 12-25 18:15 → HOCA 12-25 21:53
PROVIDERS: ADMIT Specialist; ATTEND Specialist
PROC: 3E0F7GC Introduction of Other Therapeutic Substance into Respiratory Tract, Via Natural or Artificial Opening (ICD-10-PCS; principal; 2016-12-25)
DX: J44.0 Chronic obstructive pulmonary disease with (acute) lower respiratory infection (principal); J96.91 Respiratory failure, unspecified with hypoxia; J18.9 Pneumonia, unspecified organism; L89.159 Pressure ulcer of sacral region, unspecified stage; I11.0 Hypertensive heart disease with heart failure; I48.91 Unspecified atrial fibrillation; I50.9 Heart failure, unspecified; F03.90 Unspecified dementia, unspecified severity, without behavioral disturbance, psychotic disturbance, mood disturbance, and anxiety; R13.10 Dysphagia, unspecified; R62.7 Adult failure to thrive; I25.10 Atherosclerotic heart disease of native coronary artery without angina pectoris; M89.9 Disorder of bone, unspecified; R91.8 Other nonspecific abnormal finding of lung field; E07.9 Disorder of thyroid, unspecified; E78.00 Pure hypercholesterolemia, unspecified; K21.9 Gastro-esophageal reflux disease without esophagitis; K44.9 Diaphragmatic hernia without obstruction or gangrene; M19.90 Unspecified osteoarthritis, unspecified site; F41.9 Anxiety disorder, unspecified; M48.00 Spinal stenosis, site unspecified; R25.1 Tremor, unspecified; E11.9 Type 2 diabetes mellitus without complications; Z79.4 Long term (current) use of insulin; H91.90 Unspecified hearing loss, unspecified ear; Z87.01 Personal history of pneumonia (recurrent); Z66 Do not resuscitate; N28.9 Disorder of kidney and ureter, unspecified; Z51.5 Encounter for palliative care; E03.9 Hypothyroidism, unspecified; E78.5 Hyperlipidemia, unspecified; K56.41 Fecal impaction; N20.0 Calculus of kidney; Z87.891 Personal history of nicotine dependence; Z95.1 Presence of aortocoronary bypass graft; Z95.5 Presence of coronary angioplasty implant and graft; Z86.73 Personal history of transient ischemic attack (TIA), and cerebral infarction without residual deficits; Z96.651 Presence of right artificial knee joint; Z79.02 Long term (current) use of antithrombotics/antiplatelets; Z95.0 Presence of cardiac pacemaker; Z87.440 Personal history of urinary (tract) infections
CPT/HCPCS: 36600; 71010; 71250; 74176; 76937; 80053; 80076; 82140; 82550; 82552; 82565; 82805; 82948; 83735; 84165; 84484; 85025; 85610; 85652; 85730; 93005; G0378; G8987-GP; G8988-GP; G8996-GN; G8997-GN; G8998-GN; J0692; J1815; J3370; J7030; J7050; J7070